=== PATIENT | female | born 1975 | race Caucasian/White ===

== ENCOUNTER 2016-10-20 06:34 | Emergency (ER) | payer BC, MEDICARE ==
[2016-10-20] MEDS ORDERED: HYDROmorphone 2 MG/ML Syringe IVPUSH ONE ×2 (07:08→08:38)
[2016-10-20] MEDS ORDERED: Sodium Chloride 0.9% 1,000 ML IV ONE (07:08)
[2016-10-20] MEDS ORDERED: Ondansetron 4 MG/2 ML SDV IVPUSH ONE (07:08)
[2016-10-20] MEDS ORDERED: Sodium Chloride 0.9% 10 ML Syringe FLUSH PRN (07:09)
[2016-10-20] MEDS ORDERED: Sodium Chloride 0.9% 2.5 ML Syringe FLUSH PRN (07:09)
[2016-10-20] MEDS ORDERED: diphenhydrAMINE 50 MG/ML SDV IVPUSH ONE (07:10)
--- NOTE | 2016-10-20 07:16 | EDM.PDOC ---
ED HPI GENERAL MEDICAL PROBLEM - General Chief Complaint: Gastrointestinal Problem Stated Complaint: ABDOMINAL PAIN- RENAL DIALYSIS PT Time Seen by Provider: 10/20/16 06:59 - History of Present Illness INITIAL COMMENTS - FREE TEXT/NARRATIVE: HISTORY AND PHYSICAL: History of present illness: The patient is a 40-year-old female with a history of migraines hypertension end -stage renal disease T2 glomerulosclerosis who gets dialysis Thursday and Thursday here at our hospital and presents with a three-day history of crampy abdominal pain which is generalized associated with watery diarrhea every 30 minutes and intractable vomiting. According to the patient she has had no new foods travels or ill exposures and this started on Thursday morning with just grumbling in her abdomen and diffuse crampy abdominal pain which was mild. Her first stool was mushy and not watery and it proceeded to watery stools. There is no black or bloody stools and her last colonoscopy was less than 2 years ago here. Patient denies any fevers with this and she has had no chest pain shortness of breath or upper, pain. Her pain is localized to the lower part of her abdomen she says is becoming more sharp. She tried [id number] antidiarrheals and they did not help. Simultaneously with the diarrhea she started having nausea and intermittent vomiting which has become intractable. She can't tolerate anything by mouth and she feels very dry. She says she is below her dry weight. She presented to dialysis they sent her up here for evaluation. Patient has a history of a cholecystectomy a gastric bypass and a hysterectomy without ovariectomy and has no IBS history. Patient does make 700 cc of urine per day and has a left upper extremity fistula. Review of systems: As per history of present illness and below otherwise all systems reviewed and negative. Past medical history: As per history of present illness and as reviewed below otherwise noncontributory. Surgical history: As per history of present illness and as reviewed below otherwise noncontributory. Social history: No reported history of drug or alcohol abuse. Family history: As per history of present illness and as reviewed below otherwise noncontributory. Physical exam: General: Well-developed well-nourished female who is nontoxic and looks somewhat uncomfortable in the room with speaking clearly and easily and can move easily without distress. Vital signs have been noted by me HEENT: Atraumatic, normocephalic, negative for conjunctival pallor or scleral icterus, mucous membranes tacky, throat clear, neck supple, nontender, trachea midline. Lungs: Clear to auscultation, breath sounds equal bilaterally, chest nontender. Heart: S1S2, regular, negative for clicks, rubs, or JVD. Abdomen: Soft, nondistended, mildly hyperactive bowel sounds. There is diffuse lower abdominal tenderness with more tenderness on the right than on the left but there is no rebound or guarding. The patient has a well-healed midabdominal scar without hernia appreciated. Negative for masses or hepatosplenomegaly. Negative for costovertebral tenderness. Pelvis: Stable nontender. Genitourinary: Deferred. Rectal: Deferred. Extremities: Atraumatic, negative for cords or calf pain. Neurovascular unremarkable. There is a fistula noted on the left forearm distally near the wrist with a positive thrill Neuro: Awake, alert, oriented. Cranial nerves II through XII unremarkable. Cerebellum unremarkable. Motor and sensory unremarkable throughout. Exam nonfocal. Diagnostics: CBC CMP amylase lipase lactic acid CT scan of the abdomen and pelvis UA we will send stool for studies of the patient produces Therapeutics: IV fluids Zofran Dilaudid Benadryl The patient states she does have an allergy to Dilaudid, she breaks or rash, but she states when she is given the drug with Benadryl she does not have a reaction. 0912: I discussed all testing results with the patient and her family at bedside. I have also discussed all testing results and the patient's case with her provider in the clinic, Dr. Mcdowell. I've offered the patient observation admission for her discomfort but in light of her need for dialysis that would require a transfer to [facility] in [place]. I have discussed this with the patient and she would deferred that option at this time. Have discussed close followup with her provider in the clinic tomorrow and have scheduled her to have an appointment with Dr. Mcdowell tomorrow at 2:15 PM. She would like to try to go home and I will give her Zofran Bentyl and some pain medication for evening to help her get some sleep. I told her that I truly do need a stool sample here in the ED to test her for bacterial diarrhea which is something that I can treat and she is continuing to try to give me a stool sample. I have discussed with hemodialysis unit in the hospital during her dialysis once we discharge her and they have agreed to fit her into the schedule. 0945: Patient still is not able to produce a stool sample so I will give her the tools and a prescription to collect the stool and bring it to outpatient lab and have check those results tomorrow on her appointment. The patient overall looks much improved and is sitting up Cuban style in the bed with occasional twinges of discomfort but overall much improved. She has had no vomiting in the ED. We'll contact dialysis to get her an appointment to do her dialysis today. Impression: Abdominal pain/vomiting/diarrhea history of end-stage renal disease on dialysis Definitive disposition and diagnosis as appropriate pending reevaluation and review of above. abdomen Pain Score (Numeric/FACES): 5 - Related Data Allergies Allergy/AdvReac Type Severity Reaction Status Date / Time hydromorphone HCl Allergy Itching Verified 10/20/16 06:47 [From Dilaudid] Home Meds: Home Meds Levocetirizine Dihydrochloride 5 mg PO BEDTIME 10/20/16 [History] NIFEdipine [Nifedipine ER] 30 mg PO BID 10/20/16 [History] Nitroglycerin [Nitrostat] 0.4 mg SL ASDIRECTED PRN 10/20/16 [History] Nortriptyline HCl [Pamelor] 50 mg PO BEDTIME 10/20/16 [History] Primidone [Mysoline] 50 mg PO BEDTIME 10/20/16 [History] SUMAtriptan [Imitrex] 6 mg SQ ASDIRECTED PRN 10/20/16 [History] Sevelamer HCl [Renagel] 800 mg PO QID 10/20/16 [History] Sod Ferric Gluc Complex/Suc [Ferrlecit 62.5 mg/5 ml Vial] 62.5 mg IV ASDIRECTED 10/20/16 [History] Valproic Acid [Depakene] 500 mg PO BID 10/20/16 [History] Zolpidem Tartrate [Ambien Cr] 12.5 mg PO BEDTIME 10/20/16 [History] hydrOXYzine HCl [Atarax] 25 mg PO ASDIRECTED PRN 10/20/16 [History] Past Medical History Other HEENT History: wears glasses/contacts Cardiovascular History: Reports: Hypertension Respiratory History: Reports: None Gastrointestinal History: Reports: None Genitourinary History: Reports: Other (see below) Other Genitourinary History: Focal Segmental Glomerulosclerosis, Stage 5, states is not on dialysis- has left wrist A-V fistula, candidate for renal transplant SURGICAL SERVICES ASST History: Reports: Endometrial ablation, Other OB/BYN History: Breast Augmentation Musculoskeletal History: Reports: None Neurological History: Reports: Migraines Other Neuro History: restless leg syndrome Psychiatric History: Reports: Anxiety, Depression Endocrine/Metabolic History: Reports: Obesity/BMI 30+ Hematologic History: Reports: Blood transfusion(s) Immunologic History: Reports: None Oncologic (Cancer) History: Reports: None Dermatologic History: Reports: Other (see below) Other Dermatologic History: unexplained bruising - Past Surgical History HEENT Surgical History: Reports: None Other Cardiovascular Surgeries/Procedures: AV graft Respiratory Surgical History: Reports: None Other GI Surgeries/Procedures: abdominal plasty Female Surgical History: Reports: Hysterectomy, Tubal ligation Endocrine Surgical History: Reports: None Musculoskeletal Surgical History: Reports: Ganglion cyst Oncologic Surgical History: Reports: None Social & Family History - Family History Family Medical History: Noncontributory Cardiac: Reports: CAD Oncologic: Reports: Colon, Liver, Lung, Pancreatic, Other (see below) Other Oncologic Family History: throat - Tobacco Use Smoking Status *Q: Never Smoker Second Hand Smoke Exposure: No - Caffeine Use Caffeine Use: Reports: Coffee Caffeine Use Comment: occasional - Alcohol Use Days Per Week of Alcohol Use: 1 Number of Drinks Per Day: 1 Total Drinks Per Week: 1 - Recreational Drug Use Recreational Drug Use: No Drug Use in Last 12 Months: No ED ROS GENERAL - Review of Systems Review Of Systems: ROS reveals no pertinent complaints other than HPI. ED EXAM, GENERAL - Physical Exam Exam: See Below (See dictation) Course - Vital Signs Last Recorded V/S: Last Vital Signs Temp 36.3 C 10/20/16 06:48 Pulse 90 10/20/16 08:30 Resp 16 10/20/16 08:30 BP 140/79 10/20/16 08:30 Pulse Ox 98 10/20/16 08:30 - Orders/Labs/Meds Orders: Active Orders 24 hr Category Date Time Status Communication Order [RC] STAT Care 10/20/16 07:09 Active Sodium Chloride 0.9% [Saline Flush] Med 10/20/16 07:09 Active 10 ml FLUSH ASDIRECTED PRN Sodium Chloride 0.9% [Saline Flush] Med 10/20/16 07:09 Active 2.5 ml FLUSH ASDIRECTED PRN Saline Lock Insert [OM.PC] Stat Oth 10/20/16 07:07 Ordered Medication Orders Sodium Chloride (Saline Flush) 10 ml FLUSH ASDIRECTED PRN PRN Reason: Keep Vein Open Sodium Chloride (Saline Flush) 2.5 ml FLUSH ASDIRECTED PRN PRN Reason: Keep Vein Open Labs: Laboratory Tests 10/20/16 10/20/16 10/20/16 Range/Units 07:24 07:24 07:24 WBC 7.47 (4.0-11.0) K/uL RBC 5.15 (4.30-5.90) M/uL Hgb 18.4 H (12.0-16.0) g/dL Hct 48.9 H (36.0-46.0) % MCV 95.0 (80.0-98.0) fL MCH 35.7 H (27.0-32.0) pg MCHC 37.6 H (31.0-37.0) g/dL RDW Std Deviation 45.6 (28.0-62.0) fl RDW Coeff of Berny 13 (11.0-15.0) % Plt Count 253 (150-400) K/uL MPV 9.20 (7.40-12.00) fL Neut % (Auto) 54.3 (48.0-80.0) % Lymph % (Auto) 27.6 (16.0-40.0) % Thurston % (Auto) 13.3 (0.0-15.0) % Eos % (Auto) 4.4 (0.0-7.0) % Baso % (Auto) 0.4 (0.0-1.5) % Neut # (Auto) 4.1 (1.4-5.7) K/uL Lymph # (Auto) 2.1 (0.6-2.4) K/uL Thurston # (Auto) 1.0 H (0.0-0.8) K/uL Eos # (Auto) 0.3 (0.0-0.7) K/uL Baso # (Auto) 0.0 (0.0-0.1) K/uL Nucleated RBC % 0.0 /100WBC Nucleated RBCs # 0 K/uL Lactate 1.1 (0.20-2.00) mmol/L Sodium 123 L (136-146) mmol/L Potassium 3.0 L (3.5-5.1) mmol/L Chloride 89 L (98-110) mmol/L Carbon Dioxide 14 L (21-31) mmol/L BUN 76 H (6.0-23.0) mg/dL Creatinine 9.6 H (0.6-1.5) mg/dL Est Cr Clr Drug Dosing 6.04 mL/min Estimated GFR (MDRD) 4.5 ml/min Glucose 113 H (60-110) mg/dL Calcium 10.0 (8.8-10.8) mg/dL Total Bilirubin 0.6 (0.1-1.5) mg/dL AST 11 (5-40) IU/L ALT 29 (8-54) IU/L Alkaline Phosphatase 149 (40-150) Total Protein 8.3 H (6.0-8.0) g/dL Albumin 4.3 (3.5-5.0) g/dL Globulin 4.0 H (2.0-3.5) g/dL Albumin/Globulin Ratio 1.1 L (1.3-2.8) Amylase 67 (10-90) U/L Lipase 17 (7-80) U/L Urine Color Urine Appearance Urine pH (5.0-8.0) Ur Specific [place] (1.001-1.035) Urine Protein (NEGATIVE) mg/dL Urine Glucose (UA) (NEGATIVE) mg/dL Urine Ketones (NEGATIVE) mg/dL Urine Occult Blood (NEGATIVE) Urine Nitrite (NEGATIVE) Urine Bilirubin (NEGATIVE) Urine Urobilinogen (<2.0) EU/dL Ur Leukocyte Esterase (NEGATIVE) Urine RBC (0-2/HPF) Urine WBC (0-5/HPF) Ur Epithelial Cells (NONE-FEW) Amorphous Sediment (NEGATIVE) Urine Bacteria (NEGATIVE) 10/20/16 Range/Units 08:43 WBC (4.0-11.0) K/uL RBC (4.30-5.90) M/uL Hgb (12.0-16.0) g/dL Hct (36.0-46.0) % MCV (80.0-98.0) fL MCH (27.0-32.0) pg MCHC (31.0-37.0) g/dL RDW Std Deviation (28.0-62.0) fl RDW Coeff of Berny (11.0-15.0) % Plt Count (150-400) K/uL MPV (7.40-12.00) fL Neut % (Auto) (48.0-80.0) % Lymph % (Auto) (16.0-40.0) % Thurston % (Auto) (0.0-15.0) % Eos % (Auto) (0.0-7.0) % Baso % (Auto) (0.0-1.5) % Neut # (Auto) (1.4-5.7) K/uL Lymph # (Auto) (0.6-2.4) K/uL Thurston # (Auto) (0.0-0.8) K/uL Eos # (Auto) (0.0-0.7) K/uL Baso # (Auto) (0.0-0.1) K/uL Nucleated RBC % /100WBC Nucleated RBCs # K/uL Lactate (0.20-2.00) mmol/L Sodium (136-146) mmol/L Potassium (3.5-5.1) mmol/L Chloride (98-110) mmol/L Carbon Dioxide (21-31) mmol/L BUN (6.0-23.0) mg/dL Creatinine (0.6-1.5) mg/dL Est Cr Clr Drug Dosing mL/min Estimated GFR (MDRD) ml/min Glucose (60-110) mg/dL Calcium (8.8-10.8) mg/dL Total Bilirubin (0.1-1.5) mg/dL AST (5-40) IU/L ALT (8-54) IU/L Alkaline Phosphatase (40-150) Total Protein (6.0-8.0) g/dL Albumin (3.5-5.0) g/dL Globulin (2.0-3.5) g/dL Albumin/Globulin Ratio (1.3-2.8) Amylase (10-90) U/L Lipase (7-80) U/L Urine Color YELLOW Urine Appearance HAZY Urine pH 5.5 (5.0-8.0) Ur Specific [place] 1.015 (1.001-1.035) Urine Protein 30 (NEGATIVE) mg/dL Urine Glucose (UA) NEGATIVE (NEGATIVE) mg/dL Urine Ketones NEGATIVE (NEGATIVE) mg/dL Urine Occult Blood TRACE-INTACT (NEGATIVE) Urine Nitrite NEGATIVE (NEGATIVE) Urine Bilirubin NEGATIVE (NEGATIVE) Urine Urobilinogen 0.2 (<2.0) EU/dL Ur Leukocyte Esterase TRACE (NEGATIVE) Urine RBC 0-2 (0-2/HPF) Urine WBC 1-3 (0-5/HPF) Ur Epithelial Cells MODERATE (NONE-FEW) Amorphous Sediment MODERATE (NEGATIVE) Urine Bacteria FEW (NEGATIVE) Meds: Medications Generic Name Dose Route Start Last Admin Trade Name Freq PRN Reason Stop Dose Admin Sodium Chloride 10 ml 10/20/16 07:09 Saline Flush FLUSH ASDIRECTED PRN Keep Vein Open Sodium Chloride 2.5 ml 10/20/16 07:09 Saline Flush FLUSH ASDIRECTED PRN Keep Vein Open Discontinued Medications Generic Name Dose Route Start Last Admin Trade Name Freq PRN Reason Stop Dose Admin Dicyclomine HCl 20 mg 10/20/16 09:08 10/20/16 09:12 Bentyl PO 10/20/16 09:09 20 mg ONETIME ONE Administration Diphenhydramine HCl 50 mg 10/20/16 07:10 10/20/16 07:26 Benadryl IVPUSH 10/20/16 07:11 50 mg ONETIME ONE Administration Hydromorphone HCl 1 mg 10/20/16 07:08 10/20/16 07:26 Dilaudid IVPUSH 10/20/16 07:09 1 mg ONETIME ONE Administration Hydromorphone HCl 0.5 mg 10/20/16 08:38 10/20/16 08:50 Dilaudid IVPUSH 10/20/16 08:39 0.5 mg ONETIME ONE Administration Sodium Chloride 1,000 mls @ 999 mls/hr 10/20/16 07:08 10/20/16 07:26 Normal Saline IV 10/20/16 08:08 999 mls/hr STAT ONE Administration Iopamidol 75 ml 10/20/16 08:29 10/20/16 08:32 Isovue-300 (61%) IVPUSH 10/20/16 08:30 75 ml ONETIME STA Administration Ondansetron HCl 4 mg 10/20/16 07:08 10/20/16 07:26 Zofran IVPUSH 10/20/16 07:09 4 mg ONETIME ONE Administration Departure - Departure Time of Disposition: 09:46 Disposition: Home, Self-Care 01 Condition: fair Clinical Impression: Diarrhea, Abdominal pain Referrals: Vj Mcdowell DO [Primary Care Provider] - Forms: ED Department Discharge Additional Instructions: The following information is given to patients seen in the emergency department who are being discharged to home. This information is to outline your options for follow-up care. We provide all patients seen in our emergency department with a follow-up referral. The need for follow-up, as well as the timing and circumstances, are variable depending upon the specifics of your emergency department visit. If you don't have a primary care physician on staff, we will provide you with a referral. We always advise you to contact your personal physician following an emergency department visit to inform them of the circumstance of the visit and for follow-up with them and/or the need for any referrals to a consulting specialist. The emergency department will also refer you to a specialist when appropriate. This referral assures that you have the opportunity for followup care with a specialist. All of these measure are taken in an effort to provide you with optimal care, which includes your followup. Under all circumstances we always encourage you to contact your private physician who remains a resource for coordinating your care. When calling for followup care, please make the office aware that this follow-up is from your recent emergency room visit. If for any reason you are refused follow-up, please contact the [facility] emergency department at and ask to speak to the emergency department charge nurse. [facility] Primary care- Internal Medicine and Family [address] [id number] Please use all medications as prescribed. Please keep your appointment tomorrow with Dr. Mcdowell in the clinic at 2:15 PM and return to ER as needed and as discussed. Please bring sample of your stool for testing as we discussed to her outpatient lab once you're able to produce. - My Orders Last 24 Hours: My Active Orders 10/20/16 07:07 Saline Lock Insert [OM.PC] Stat 10/20/16 07:09 Communication Order [RC] STAT Sodium Chloride 0.9% [Saline Flush] 10 ml FLUSH ASDIRECTED PRN Sodium Chloride 0.9% [Saline Flush] 2.5 ml FLUSH ASDIRECTED PRN - Assessment/Plan Last 24 Hours: My Active Orders 10/20/16 07:07 Saline Lock Insert [OM.PC] Stat 10/20/16 07:09 Communication Order [RC] STAT Sodium Chloride 0.9% [Saline Flush] 10 ml FLUSH ASDIRECTED PRN Sodium Chloride 0.9% [Saline Flush] 2.5 ml FLUSH ASDIRECTED PRN
[2016-10-20] MEDS ORDERED: Iopamidol 612 MG/ML 50 ML SDV IVPUSH STA (08:29)
--- NOTE | 2016-10-20 08:57 | CT ---
CT of the abdomen and pelvis with contrast. HISTORY: Pain TECHNIQUE: Axial CT images were obtained of the abdomen and pelvis following administration of 75 mL of Isovue-370 in the right antecubital fossa without complication. Coronal and sagittal reconstruct ions obtained. FINDINGS: The lung bases are clear, no pleural effusion. The liver, spleen, and adrenal glands appear normal. Cholecystectomy clips are noted. The common velia e duct is mildly prominent at 11 mm. The pancreas appears normal. No bulky retroperitoneal lymphaden opathy or abdominal ascites. Postsurgical changes are noted secondary to gastric bypass. The kidneys appear mildly atrophic however function symmetrically without evidence of obstructive ur opathy. The large and small bowel are normal in caliber without evidence of obstruction. The appendix appear s normal. No free pelvic fluid or pelvic lymphadenopathy. The urinary bladder appears normal. Hyster ectomy. No suspicious osseous abnormalities identified. IMPRESSION: 1. No acute findings demonstrated within the abdomen or pelvis. 2. Postsurgical changes secondary to gastric bypass. 3. Cholecystectomy with mild prominence of the common bile duct.
[2016-10-20] MEDS ORDERED: Dicyclomine 10 MG Cap PO ONE (09:08)
[2016-10-20 10:06] VITALS: BP 142/98
== END 2016-10-20 10:03 | disposition home or self-care (01) ==
LOC: MW.ED 06:34
DX: R19.7 Diarrhea, unspecified (principal); R10.84 Generalized abdominal pain; Z88.5 Allergy status to narcotic agent; Z79.899 Other long term (current) drug therapy
CPT/HCPCS: 36415; 74177; 80053; 81001; 82150; 83605; 83690; 85025; 96361; 96374; 96375; 99284; A9270; J1170; J1200; J2405; J7040; Q9967

== ENCOUNTER 2017-04-14 14:15 | Emergency (ER) | payer BC, MEDICARE ==
[2017-04-14] MEDS ORDERED: Famotidine 20 MG/2 ML SDV IVPUSH ONE (14:27)
[2017-04-14] MEDS ORDERED: Alum Hydrox/Mag Hydrox/Simeth 15 ML, Metoclopramide 5 MG, Lidocaine 2% 5 ML PO ONE ×3 (14:27)
[2017-04-14] MEDS ORDERED: Nitroglycerin 2% Oint 1 GM UD Packet TOP ONE (14:27)
[2017-04-14] MEDS ORDERED: Aspirin 81 MG Tab.Chew PO ONE (14:27)
[2017-04-14] MEDS ORDERED: Sodium Chloride 0.9% 10 ML Syringe FLUSH PRN (14:27)
[2017-04-14] MEDS ORDERED: Sodium Chloride 0.9% 2.5 ML Syringe FLUSH PRN (14:27)
--- NOTE | 2017-04-14 14:31 | EDM.PDOC ---
ED HPI GENERAL MEDICAL PROBLEM - General Chief Complaint: Chest Pain Stated Complaint: CHEST PAIN Time Seen by Provider: 04/14/17 14:29 Source of Information: Reports: Patient History Limitations: Reports: No Limitations - History of Present Illness INITIAL COMMENTS - FREE TEXT/NARRATIVE: History of present illness: [41-year-old female presenting status post mid dialysis run. Patient indicates this is not the first time that she has had chest pain during a dialysis run and last time it was diagnosis and acute panic attack. Patient has had a recent extensive cardiac workup headed towards a renal transplant secondary to her kidney failure.] Review of systems: As per history of present illness and below otherwise all systems reviewed and negative. Past medical history: As per history of present illness and as reviewed below otherwise noncontributory. Surgical history: As per history of present illness and as reviewed below otherwise noncontributory. Social history: No reported history of drug or alcohol abuse. Family history: As per history of present illness and as reviewed below otherwise noncontributory. Physical exam: HEENT: Atraumatic, normocephalic, pupils reactive, negative for conjunctival pallor or scleral icterus, mucous membranes moist, throat clear, neck supple, nontender, trachea midline. Lungs: Clear to auscultation, breath sounds equal bilaterally, chest nontender. Heart: S1S2, regular, negative for clicks, rubs, or JVD. Abdomen: Soft, nondistended, nontender. Negative for masses or hepatosplenomegaly. Negative for costovertebral tenderness. Pelvis: Stable nontender. Genitourinary: Deferred. Rectal: Deferred. Extremities: Atraumatic, negative for cords or calf pain. Neurovascular unremarkable. Neuro: Awake, alert, oriented. Cranial nerves II through XII unremarkable. Cerebellum unremarkable. Motor and sensory unremarkable throughout. Exam nonfocal. Results discussed with patient and she acknowledged that she has been struggling with some component of anxiety and that she expected her cardiac workup to be negative due to recent cardiac studies performed for her transplant. Patient indicated she does not want to be admitted but will return should she have further symptoms. Diagnostics: [EKG, CBC, CMP, troponin, lipase, amylase, UA, chest x-ray] Therapeutics: [Saline lock, GI cocktail, Toradol, aspirin] Impression: [Anxiety] Plan: [Is charge to home follow-up with PCP] Definitive disposition and diagnosis as appropriate pending reevaluation and review of above. Left Chest Pain Score (Numeric/FACES): 7 - Related Data Allergies Allergy/AdvReac Type Severity Reaction Status Date / Time hydromorphone HCl Allergy Itching Verified 10/20/16 06:47 [From Dilaudid] Home Meds: Home Meds Acetaminophen 325 - 650 mg PO Q4H PRN 10/20/16 [History] Levocetirizine Dihydrochloride 5 mg PO BEDTIME 10/20/16 [History] NIFEdipine [Nifedipine ER] 30 mg PO BID 10/20/16 [History] Nitroglycerin [Nitrostat] 0.4 mg SL ASDIRECTED PRN 10/20/16 [History] Nortriptyline HCl [Pamelor] 50 mg PO BEDTIME 10/20/16 [History] Primidone [Mysoline] 50 mg PO BEDTIME 10/20/16 [History] SUMAtriptan [Imitrex] 6 mg SQ ASDIRECTED PRN 10/20/16 [History] Sevelamer HCl [Renagel] 800 mg PO QIDPCANDBED 10/20/16 [History] Valproic Acid [Depakene] 500 mg PO BID 10/20/16 [History] Zolpidem Tartrate [Ambien Cr] 12.5 mg PO BEDTIME 10/20/16 [History] hydrOXYzine HCl [Atarax] 25 mg PO DAILY PRN 10/20/16 [History] Past Medical History Other HEENT History: wears glasses/contacts Cardiovascular History: Reports: Hypertension Respiratory History: Reports: None Gastrointestinal History: Reports: None Genitourinary History: Reports: Other (See Below) Other Genitourinary History: Focal Segmental Glomerulosclerosis, Stage 5, states is not on dialysis- has left wrist A-V fistula, candidate for renal transplant [employer] 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, Other OB/BYN History: Breast Augmentation Musculoskeletal History: Reports: None Neurological History: Reports: Migraines Other Neuro History: restless leg syndrome Psychiatric History: Reports: Anxiety, Depression Endocrine/Metabolic History: Reports: Obesity/BMI 30+ Hematologic History: Reports: Blood Transfusion(s) Immunologic History: Reports: None Oncologic (Cancer) History: Reports: None Dermatologic History: Reports: Other (See Below) Other Dermatologic History: unexplained bruising - Past Surgical History GI Surgical History: Reports: Bariatric Procedure, Cholecystectomy, Other (See Below) Female Surgical History: Reports: Hysterectomy, Tubal Ligation Musculoskeletal Surgical History: Reports: Ganglion Cyst Social & Family History - Family History Family Medical History: Noncontributory Cardiac: Reports: CAD Oncologic: Reports: Colon, Liver, Lung, Pancreatic, Other (See Below) Other Oncologic Family History: throat - Tobacco Use Smoking Status *Q: Never Smoker Second Hand Smoke Exposure: No - Caffeine Use Caffeine Use: Reports: Coffee Caffeine Use Comment: occasional - Alcohol Use Days Per Week of Alcohol Use: 1 Number of Drinks Per Day: 1 Total Drinks Per Week: 1 - Recreational Drug Use Recreational Drug Use: No Drug Use in Last 12 Months: No ED ROS GENERAL - Review of Systems Review Of Systems: See Below (See history of present illness) ED EXAM, GENERAL - Physical Exam Exam: See Below (History of present illness) Course - Vital Signs Last Recorded V/S: Last Vital Signs Temp 36.8 C 04/14/17 15:15 Pulse 87 04/14/17 15:15 Resp 18 04/14/17 15:15 BP 132/98 H 04/14/17 15:15 Pulse Ox 97 04/14/17 15:15 - Orders/Labs/Meds Orders: Active Orders 24 hr Category Date Time Status Cardiac Monitoring [RC] . DIRECTED Care 04/14/17 14:27 Active EKG Documentation Completion [RC] STAT Care 04/14/17 14:27 Active Sodium Chloride 0.9% [Saline Flush] Med 04/14/17 14:27 Active 10 ml FLUSH ASDIRECTED PRN Sodium Chloride 0.9% [Saline Flush] Med 04/14/17 14:27 Active 2.5 ml FLUSH ASDIRECTED PRN Saline Lock Insert [OM.PC] Stat Oth 04/14/17 14:27 Ordered Medication Orders Sodium Chloride (Saline Flush) 10 ml FLUSH ASDIRECTED PRN PRN Reason: Keep Vein Open Last Admin: 04/14/17 14:36 Dose: 10 ml Sodium Chloride (Saline Flush) 2.5 ml FLUSH ASDIRECTED PRN PRN Reason: Keep Vein Open Last Admin: 04/14/17 14:36 Dose: 2.5 ml Labs: Laboratory Tests 10/31/17 10/31/17 10/31/17 Range/Units 14:31 14:31 14:40 WBC 4.64 (4.0-11.0) K/uL RBC 4.05 L (4.30-5.90) M/uL Hgb 13.9 (12.0-16.0) g/dL Hct 39.3 (36.0-46.0) % MCV 97.0 (80.0-98.0) fL MCH 34.3 H (27.0-32.0) pg MCHC 35.4 (31.0-37.0) g/dL RDW Std Deviation 49.6 (28.0-62.0) fl RDW Coeff of Berny 14 (11.0-15.0) % Plt Count 224 (150-400) K/uL MPV 8.90 (7.40-12.00) fL Neut % (Auto) 55.7 (48.0-80.0) % Lymph % (Auto) 35.3 (16.0-40.0) % [place] % (Auto) 8.4 (0.0-15.0) % Eos % (Auto) 0.0 (0.0-7.0) % Baso % (Auto) 0.6 (0.0-1.5) % Neut # (Auto) 2.6 (1.4-5.7) K/uL Lymph # (Auto) 1.6 (0.6-2.4) K/uL [place] # (Auto) 0.4 (0.0-0.8) K/uL Eos # (Auto) 0.0 (0.0-0.7) K/uL Baso # (Auto) 0.0 (0.0-0.1) K/uL Nucleated RBC % 0.0 /100WBC Nucleated RBCs # 0 K/uL Sodium 135 L (136-146) mmol/L Potassium 3.4 L (3.5-5.1) mmol/L Chloride 101 (98-110) mmol/L Carbon Dioxide 25 (21-31) mmol/L BUN 31 H (6.0-23.0) mg/dL Creatinine 2.8 H (0.6-1.5) mg/dL Est Cr Clr Drug Dosing 20.49 mL/min Estimated GFR (MDRD) 18.4 ml/min Glucose 128 H (60-110) mg/dL Calcium 8.4 L (8.8-10.8) mg/dL Total Bilirubin 0.4 (0.1-1.5) mg/dL AST 12 (5-40) IU/L ALT 11 (8-54) IU/L Alkaline Phosphatase 138 (40-150) Troponin I < 0.10 (0.0-0.29) NG/ML Total Protein 6.8 (6.0-8.0) g/dL Albumin 3.5 (3.5-5.0) g/dL Globulin 3.3 (2.0-3.5) g/dL Albumin/Globulin Ratio 1.1 L (1.3-2.8) Amylase 86 (10-90) U/L Lipase 56 (7-80) U/L Urine Color YELLOW Urine Appearance SLT CLOUDY Urine pH 6.0 (5.0-8.0) Ur Specific [place] 1.010 (1.001-1.035) Urine Protein 30 (NEGATIVE) mg/dL Urine Glucose (UA) NEGATIVE (NEGATIVE) mg/dL Urine Ketones NEGATIVE (NEGATIVE) mg/dL Urine Occult Blood TRACE-INTACT (NEGATIVE) Urine Nitrite NEGATIVE (NEGATIVE) Urine Bilirubin NEGATIVE (NEGATIVE) Urine Urobilinogen 0.2 (<2.0) EU/dL Ur Leukocyte Esterase SMALL (NEGATIVE) Urine RBC 0-1 (0-2/HPF) Urine WBC 1-3 (0-5/HPF) Ur Epithelial Cells OCCASIONAL (NONE-FEW) Amorphous Sediment LIGHT (NEGATIVE) Urine Bacteria FEW (NEGATIVE) Meds: Medications Generic Name Dose Route Start Last Admin Trade Name Freq PRN Reason Stop Dose Admin Sodium Chloride 10 ml 04/14/17 14:27 04/14/17 14:36 Saline Flush FLUSH 10 ml ASDIRECTED PRN Administration Keep Vein Open Sodium Chloride 2.5 ml 04/14/17 14:27 04/14/17 14:36 Saline Flush FLUSH 2.5 ml ASDIRECTED PRN Administration Keep Vein Open Discontinued Medications Generic Name Dose Route Start Last Admin Trade Name Freq PRN Reason Stop Dose Admin Aspirin 324 mg 04/14/17 14:27 04/14/17 14:35 Aspirin PO 04/14/17 14:28 324 mg ONETIME ONE Administration Al Hydroxide/Mg Hydroxide 15 0 ml 04/14/17 14:27 04/14/17 14:41 ml/ Metoclopramide HCl 5 mg/ PO 04/14/17 14:28 25 each Lidocaine HCl 5 ml ONETIME ONE Administration Famotidine 20 mg 04/14/17 14:27 04/14/17 14:36 Pepcid IVPUSH 04/14/17 14:28 20 mg ONETIME ONE Administration Lorazepam 2 mg 04/14/17 15:57 Ativan IVPUSH 04/14/17 15:58 ONETIME ONE Nitroglycerin 0.5 gm 04/14/17 14:27 04/14/17 14:40 Nitro-Bid 2% TOP 04/14/17 14:28 0.5 gm ONETIME ONE Administration Departure - Departure Time of Disposition: 16:03 Disposition: Home, Self-Care 01 Condition: Good Clinical Impression: Atypical chest pain, Anxiety - Discharge Information Referrals: PCP,Unknown [Primary Care Provider] - Forms: ED Department Discharge Additional Instructions: The following information is given to patients seen in the emergency department who are being discharged to home. This information is to outline your options for follow-up care. We provide all patients seen in our emergency department with a follow-up referral. The need for follow-up, as well as the timing and circumstances, are variable depending upon the specifics of your emergency department visit. If you don't have a primary care physician on staff, we will provide you with a referral. We always advise you to contact your personal physician following an emergency department visit to inform them of the circumstance of the visit and for follow-up with them and/or the need for any referrals to a consulting specialist. The emergency department will also refer you to a specialist when appropriate. This referral assures that you have the opportunity for follow-up care with a specialist. All of these measure are taken in an effort to provide you with optimal care, which includes your follow-up. Under all circumstances we always encourage you to contact your private physician who remains a resource for coordinating your care. When calling for follow-up care, please make the office aware that this follow-up is from your recent emergency room visit. If for any reason you are refused follow-up, please contact the [facility] Emergency Department at and asked to speak to the emergency department charge nurse. Take medication as directed Follow-up with PCP in 2-3 days Return to ED as needed as discussed - My Orders Last 24 Hours: My Active Orders 04/14/17 14:27 Cardiac Monitoring [RC] . DIRECTED EKG Documentation Completion [RC] STAT Sodium Chloride 0.9% [Saline Flush] 10 ml FLUSH ASDIRECTED PRN Sodium Chloride 0.9% [Saline Flush] 2.5 ml FLUSH ASDIRECTED PRN Saline Lock Insert [OM.PC] Stat - Assessment/Plan Last 24 Hours: My Active Orders 04/14/17 14:27 Cardiac Monitoring [RC] . DIRECTED EKG Documentation Completion [RC] STAT Sodium Chloride 0.9% [Saline Flush] 10 ml FLUSH ASDIRECTED PRN Sodium Chloride 0.9% [Saline Flush] 2.5 ml FLUSH ASDIRECTED PRN Saline Lock Insert [OM.PC] Stat
[2017-04-14 15:03] LABS: CHLORIDE,CL 101 mmol/L (98-110); SODIUM,NA 135 mmol/L (136-146)
--- NOTE | 2017-04-14 15:14 | CR ---
EXAMINATION: Two-view chest (PA and Lateral views). HISTORY: Chest pain. FINDINGS: The trachea is midline. The cardiomediastinal silhouette is within normal limits. No pulmonary infilt rates, effusions or pneumothorax. Osseous structures appear unremarkable. IMPRESSION: No acute cardiopulmonary process.
[2017-04-14] MEDS ORDERED: LORazepam 2 MG/ML SDV IVPUSH ONE (15:57)
[2017-04-14 18:11] VITALS: BP 155/109
== END 2017-04-14 15:51 | disposition home or self-care (01) ==
LOC: MW.ED 14:15
DX: R07.89 Other chest pain (principal); F41.9 Anxiety disorder, unspecified; I10 Essential (primary) hypertension; F32.9 Major depressive disorder, single episode, unspecified; Z79.899 Other long term (current) drug therapy; Z88.5 Allergy status to narcotic agent; Z99.2 Dependence on renal dialysis
CPT/HCPCS: 36415; 71020; 80053; 81001; 82150; 83690; 84484; 85025; 96374; 96375; 99285; A9270; J2060; 99284

== ENCOUNTER 2017-05-14 10:36 | Emergency (ER) | payer BC, MEDICARE ==
--- NOTE | 2017-05-14 11:19 | EDM.PDOC ---
ED HPI GENERAL MEDICAL PROBLEM - General Chief Complaint: ENT Problem Stated Complaint: EAR/NECK/SHOULDER PAIN Time Seen by Provider: 05/14/17 10:46 Source of Information: Reports: Patient History Limitations: Reports: No Limitations - History of Present Illness INITIAL COMMENTS - FREE TEXT/NARRATIVE: HISTORY AND PHYSICAL: 41-year-old female presenting with left-sided shoulder and neck pain History of Present Illness: []Reports no injuries pain has been present for several days Review of Systems: As per history of present illness and below otherwise all systems reviewed and negative. Past medical history: As per history of present illness and as reviewed below otherwise noncontributory. Surgical history: As per history of present illness and as reviewed below otherwise noncontributory. Social history: No reported history of drug or alcohol abuse. Family history: As per history of present illness and as reviewed below otherwise noncontributory. Physical exam: Alert and oriented female states 5 renal failure patient is on a transplant list.Skin is warm and dry HEENT: Atraumatic, normocehpalic, pupils reactive, negative for conjunctival pallor or scleral icterus, mucous membranes moist, throat clear, neck supple, nontender, trachea midline. Lungs: Clear to auscultation, breath sounds equal bilaterally, chest non tender. Heart: S1S2, regular, negative for clicks, rubs, or JVD. Abdomen: Soft, nondistended, nontender. Negative for masses or hepatossplenmegaly. Negative for costovertebral tenderness. Pelvis: Stable nontender. Genitourinary: Deferred. Rectal: Deferred Extremities: Atraumatic, negative for cords or calf pain. Exquisitely tender across the previous episode of her shoulder extending towards her neck recorded muscle is noted extending up into the back of her left ear Neurovascular unremarkable. Neuro: Awake, alert, oriented. Cranial nerves II through XII unremarkable. Cerebellum unremarkable. Motor and sensory unremarkable throughout. Exam nonfocal. Diagnostics: [] Therapeutics: [Norflex] Impression: [Muscle tension] Plan: [Discharged home Flexeril 10 mg 3 times a day when necessary muscle spasm Moist heat to this area Follow-up with your primary care provider] Definitive disposition and diagnosis as appropriate pending reevaluation and review of above. Onset: Gradual Duration: Day(s): Location: Reports: Neck Left Ear Pain Score (Numeric/FACES): 7 - Related Data Allergies Allergy/AdvReac Type Severity Reaction Status Date / Time hydromorphone HCl Allergy Itching Verified 05/14/17 10:43 [From Dilaudid] Home Meds: Home Meds Levocetirizine Dihydrochloride 5 mg PO BEDTIME 10/20/16 [History] NIFEdipine [Nifedipine ER] 30 mg PO BID 10/20/16 [History] Sevelamer HCl [Renagel] 800 mg PO QIDPCANDBED 10/20/16 [History] Zolpidem Tartrate [Ambien Cr] 12.5 mg PO BEDTIME 10/20/16 [History] Cyclobenzaprine [Flexeril] 10 mg PO TID #21 tablet 05/14/17 [Rx] LORazepam [Ativan] 0.5 tab PO ASDIRECTED 05/14/17 [History] Omeprazole 1 tab PO ASDIRECTED PRN 05/14/17 [History] Venlafaxine HCl [Venlafaxine HCl ER] 1 tab PO DAILY 05/14/17 [History] Past Medical History HEENT History: Reports: Other (See Below) Other HEENT History: wears glasses/contacts Cardiovascular History: Reports: Hypertension Respiratory History: Reports: None Gastrointestinal History: Reports: None Genitourinary History: Reports: Other (See Below) Other Genitourinary History: Focal Segmental Glomerulosclerosis, Stage 5, states is not on dialysis- has left wrist A-V fistula, 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, Other OB/BYN History: Breast Augmentation Musculoskeletal History: Reports: None Neurological History: Reports: Migraines Other Neuro History: restless leg syndrome Psychiatric History: Reports: Anxiety, Depression Endocrine/Metabolic History: Reports: Obesity/BMI 30+ Hematologic History: Reports: Blood Transfusion(s) Immunologic History: Reports: None Oncologic (Cancer) History: Reports: None Dermatologic History: Reports: Other (See Below) Other Dermatologic History: unexplained bruising - Infectious Disease History Infectious Disease History: Reports: Chicken Pox - Past Surgical History GI Surgical History: Reports: Bariatric Procedure, Cholecystectomy, Other (See Below) Female Surgical History: Reports: Hysterectomy, Tubal Ligation Musculoskeletal Surgical History: Reports: Ganglion Cyst Social & Family History - Family History Family Medical History: Noncontributory Cardiac: Reports: CAD Oncologic: Reports: Colon, Liver, Lung, Pancreatic, Other (See Below) Other Oncologic Family History: throat - Tobacco Use Smoking Status *Q: Never Smoker Second Hand Smoke Exposure: No - Caffeine Use Caffeine Use: Reports: Coffee Caffeine Use Comment: occasional - Alcohol Use Days Per Week of Alcohol Use: 1 Number of Drinks Per Day: 1 Total Drinks Per Week: 1 - Recreational Drug Use Recreational Drug Use: No Drug Use in Last 12 Months: No ED ROS ENT - Review of Systems Review Of Systems: ROS reveals no pertinent complaints other than HPI. ED EXAM, ENT - Physical Exam Exam: See Below Course - Vital Signs Last Recorded V/S: Last Vital Signs Temp 35.9 C 05/14/17 10:43 Pulse 98 05/14/17 10:43 Resp 16 05/14/17 10:43 BP 134/101 H 05/14/17 11:02 Pulse Ox 98 05/14/17 10:43 - Orders/Labs/Meds Orders: Active Orders 24 hr Category Date Time Status Orphenadrine [Norflex] Med 05/14/17 11:15 Ordered 60 mg IM Q12H Medication Orders Orphenadrine Citrate (Norflex) 60 mg IM Q12H [facility] Meds: Medications Generic Name Dose Route Start Last Admin Trade Name Freq PRN Reason Stop Dose Admin Orphenadrine Citrate 60 mg 05/14/17 11:15 Norflex IM Q12H [facility] Departure - Departure Time of Disposition: 11:17 Disposition: Home, Self-Care 01 Condition: Good Clinical Impression: Muscle spasm - Discharge Information Prescriptions: Cyclobenzaprine [Flexeril] 10 mg PO TID #21 tablet Referrals: Vj Mcdowell DO [Primary Care Provider] - Forms: ED Department Discharge Additional Instructions: The following information is given to patients seen in the emergency department who are being discharged to home. This information is to outline your options for follow-up care. We provide all patients seen in our emergency department with a follow-up referral. The need for follow-up, as well as the timing and circumstances, are variable depending upon the specifics of your emergency department visit. If you don't have a primary care physician on staff, we will provide you with a referral. We always advise you to contact your personal physician following an emergency department visit to inform them of the circumstance of the visit and for follow-up with them and/or the need for any referrals to a consulting specialist. The emergency department will also refer you to a specialist when appropriate. This referral assures that you have the opportunity for followup care with a specialist. All of these measure are taken in an effort to provide you with optimal care, which includes your followup. Under all circumstances we always encourage you to contact your private physician who remains a resource for coordinating your care. When calling for followup care, please make the office aware that this follow-up is from your recent emergency room visit. If for any reason you are refused follow-up, please contact the [facility] emergency department at and asked to speak to the emergency department charge nurse. You were given Norflex IM while in the emergency department Prescription for Flexeril a muscle relaxant has been electronically sent to your pharmacy Follow-up with your primary care provider this week - My Orders Last 24 Hours: My Active Orders 05/14/17 11:15 Orphenadrine [Norflex] 60 mg IM Q12H - Assessment/Plan Last 24 Hours: My Active Orders 05/14/17 11:15 Orphenadrine [Norflex] 60 mg IM Q12H
[2017-05-14 11:59] VITALS: BP 142/105
== END 2017-05-14 11:56 | disposition home or self-care (01) ==
LOC: MW.ED 10:36
DX: M62.838 Other muscle spasm (principal); I10 Essential (primary) hypertension; F32.9 Major depressive disorder, single episode, unspecified; Z79.899 Other long term (current) drug therapy; Z88.5 Allergy status to narcotic agent
CPT/HCPCS: 96372; 99283; J2360

== ENCOUNTER 2017-06-21 19:44 | Emergency (ER) | payer BC, MEDICARE ==
[2017-06-21] MEDS ORDERED: Albuterol/Ipratropium 3.0-0.5 MG/3 ML Neb Soln NEB ONE (19:54)
[2017-06-21] MEDS ORDERED: Sodium Chloride 0.9% 10 ML Syringe FLUSH PRN (19:54)
[2017-06-21] MEDS ORDERED: Sodium Chloride 0.9% 2.5 ML Syringe FLUSH PRN (19:54)
--- NOTE | 2017-06-21 19:59 | EDM.PDOC ---
ED HPI GENERAL MEDICAL PROBLEM - General Chief Complaint: Respiratory Problem Stated Complaint: SOB Time Seen by Provider: 06/21/17 19:48 - History of Present Illness INITIAL COMMENTS - FREE TEXT/NARRATIVE: HISTORY AND PHYSICAL: History of present illness: The patient is a 41-year-old female with a history of hypertension and anxiety and chronic renal disease for which she is on hemodialysis for the last 2 years , her dialysis days are Thursday and Thursday, and she has a left forearm fistula who presents with a seven-day history of cough productive of phlegm congestion nasal drainage and congestion sore throat body aches but without nausea vomiting or diarrhea. Patient was told that she should never take anything [id number] so she hasn't but she says she did go into an urgent care last week out of town and had a negative influenza swab and was placed on a Z-Beka. She did not feel any improvement with that. Patient says she did get her influenza shot this year. Patient follows in our internal medicine clinic with Dr. Mcdowell and she says she had her normal dialysis run on Thursday without issue. She does not feel like she is retaining fluid as her hands feet and legs are not swollen and this is typical of her retention of fluid. Patient does make urine and has no urinary complaints. Patient has body aches and no fevers at home. Patient says she does not feel dehydrated and has been trying to keep up with her fluids and eating. Patient is just very frustrated and feels more short of breath over the last 1-2 days and feels like her symptoms are progressing. Review of systems: As per history of present illness and below otherwise all systems reviewed and negative. Past medical history: As per history of present illness and as reviewed below otherwise noncontributory. Surgical history: As per history of present illness and as reviewed below otherwise noncontributory. Social history: No reported history of drug or alcohol abuse. Family history: As per history of present illness and as reviewed below otherwise noncontributory. Physical exam: Gen.: Well-developed well-nourished female who is nontoxic and speaking clearly in the ED without breathlessness but she does have a slight nasal quality to her voice. Vital signs have been noted by me. HEENT: Atraumatic, normocephalic, pupils reactive, negative for conjunctival pallor or scleral icterus, mucous membranes moist, throat clear of exudates but there is posterior oropharyngeal erythema, there is no cervical adenopathy or nuchal rigidity, neck supple, nontender, trachea midline. There is no discrete sinus tenderness but the nasal turbinates are boggy bilaterally left greater than right. Lungs: Clear to auscultation but coarse breath sounds at bases right greater than left, there is no work of breathing stridor or wheezing, breath sounds equal bilaterally, chest nontender. Heart: S1S2, regular, negative for clicks, rubs, or JVD. Abdomen: Soft, nondistended, nontender. Negative for masses or hepatosplenomegaly. Negative for costovertebral tenderness. Pelvis: Stable nontender. Genitourinary: Deferred. Rectal: Deferred. Extremities: Atraumatic, negative for cords or calf pain. Neurovascular unremarkable. No pedal edema or leg asymmetry Neuro: Awake, alert, oriented. Cranial nerves II through XII unremarkable. Cerebellum unremarkable. Motor and sensory unremarkable throughout. Exam nonfocal. Diagnostics: EKG chest x-ray CBC CMP BNP rapid strep influenza swab lactic acid troponin Therapeutics: Duo neb IV O2 monitor Rocephin spacer and spacer teaching After the DuoNeb patient says she doesn't feel significantly different but she has a more harsh bronchitic cough on my evaluation. She and her at bedside are aware of testing results and as she is scheduled for dialysis tomorrow at 6:30 I will not transfer her or admit her with the results that I have obtained and she is comfortable with going home. I will give her a dose of Rocephin here and send her out on antibiotics and will give her Phenergan with codeine, albuterol inhaler and spacer be a Insty Meds. I advised her to follow- up with a provider in the clinic this week and she has a scheduled appointment in 2 days. Impression: Bronchitis/sinusitis Definitive disposition and diagnosis as appropriate pending reevaluation and review of above. Chest Pain Score (Numeric/FACES): 4 - Related Data Allergies Allergy/AdvReac Type Severity Reaction Status Date / Time hydromorphone HCl Allergy Itching Verified 05/14/17 10:43 [From Dilaudid] Home Meds: Home Meds Levocetirizine Dihydrochloride 5 mg PO BEDTIME 10/20/16 [History] NIFEdipine [Nifedipine ER] 30 mg PO BID 10/20/16 [History] Sevelamer HCl [Renagel] 800 mg PO QIDPCANDBED 10/20/16 [History] Zolpidem Tartrate [Ambien Cr] 12.5 mg PO BEDTIME 10/20/16 [History] LORazepam [Ativan] 0.5 tab PO ASDIRECTED 05/14/17 [History] Omeprazole 1 tab PO ASDIRECTED PRN 05/14/17 [History] Venlafaxine HCl [Venlafaxine HCl ER] 1 tab PO DAILY 05/14/17 [History] Cyclobenzaprine [Flexeril] 10 mg PO ASDIRECTED PRN 06/21/17 [History] cloNIDine HCl [Clonidine HCl ER] 0.1 mg PO DAILY 06/21/17 [History] Past Medical History HEENT History: Reports: Other (See Below) Other HEENT History: wears glasses/contacts Cardiovascular History: Reports: Hypertension Respiratory History: Reports: None Gastrointestinal History: Reports: None Genitourinary History: Reports: Other (See Below) Other Genitourinary History: Focal Segmental Glomerulosclerosis, Stage 5, states is not on dialysis- has left wrist A-V fistula, candidate for renal transplant [employer] History: Reports: Endometrial Ablation, Other OB/BYN History: Breast Augmentation Musculoskeletal History: Reports: None Neurological History: Reports: Migraines Other Neuro History: restless leg syndrome Psychiatric History: Reports: Anxiety, Depression Endocrine/Metabolic History: Reports: Obesity/BMI 30+ Hematologic History: Reports: Blood Transfusion(s) Immunologic History: Reports: None Oncologic (Cancer) History: Reports: None Dermatologic History: Reports: Other (See Below) Other Dermatologic History: unexplained bruising - Infectious Disease History Infectious Disease History: Reports: Chicken Pox - Past Surgical History GI Surgical History: Reports: Bariatric Procedure, Cholecystectomy, Other (See Below) Female Surgical History: Reports: Hysterectomy, Tubal Ligation Musculoskeletal Surgical History: Reports: Ganglion Cyst Social & Family History - Family History Family Medical History: Noncontributory Cardiac: Reports: CAD Oncologic: Reports: Colon, Liver, Lung, Pancreatic, Other (See Below) Other Oncologic Family History: throat - Tobacco Use Smoking Status *Q: Never Smoker Second Hand Smoke Exposure: No - Caffeine Use Caffeine Use: Reports: None Caffeine Use Comment: occasional - Alcohol Use Days Per Week of Alcohol Use: 1 Number of Drinks Per Day: 1 Total Drinks Per Week: 1 - Recreational Drug Use Recreational Drug Use: No Drug Use in Last 12 Months: No ED ROS GENERAL - Review of Systems Review Of Systems: ROS reveals no pertinent complaints other than HPI. ED EXAM, GENERAL - Physical Exam Exam: See Below (See dictation) Course - Vital Signs Last Recorded V/S: Last Vital Signs Temp 36.9 C 06/21/17 19:49 Pulse 101 H 06/21/17 21:04 Resp 19 06/21/17 21:04 BP 131/94 H 06/21/17 21:04 Pulse Ox 99 06/21/17 21:04 - Orders/Labs/Meds Orders: Active Orders 24 hr Category Date Time Status Cardiac Monitoring [RC] . DIRECTED Care 06/21/17 19:53 Active Communication Order [RC] STAT Care 06/21/17 19:54 Active EKG Documentation Completion [RC] STAT Care 06/21/17 19:53 Active Oxygen Therapy, ED [RC] ASDIRECTED Care 06/21/17 19:53 Active Pulse Oximetry [RC] ASDIRECTED Care 06/21/17 19:54 Active RT Aerosol Therapy [RC] ASDIRECTED Care 06/21/17 19:55 Active Chest 2V [CR] Stat Exams 06/21/17 19:54 Taken CULTURE STREP A CONFIRMATION [RM] Stat Lab 06/21/17 20:45 Results STREP SCRN A RAPID W CULT CONF [RM] Stat Lab 06/21/17 20:45 Results Sodium Chloride 0.9% [Saline Flush] Med 06/21/17 19:54 Active 10 ml FLUSH ASDIRECTED PRN Sodium Chloride 0.9% [Saline Flush] Med 06/21/17 19:54 Active 2.5 ml FLUSH ASDIRECTED PRN cefTRIAXone [Rocephin in Dextrose,Iso-Osm 1 GM/50 ML] 1 Med 06/21/17 21:39 Ordered gm Premix Bag 1 bag IV ONETIME Saline Lock Insert [OM.PC] Stat Oth 06/21/17 19:53 Ordered Medication Orders Ceftriaxone Sodium/Dextrose 1 (gm/ Premix) 50 mls @ 100 mls/hr IV ONETIME ONE Stop: 06/21/17 22:08 Sodium Chloride (Saline Flush) 10 ml FLUSH ASDIRECTED PRN PRN Reason: Keep Vein Open Sodium Chloride (Saline Flush) 2.5 ml FLUSH ASDIRECTED PRN PRN Reason: Keep Vein Open Labs: Laboratory Tests 06/21/17 06/21/17 06/21/17 Range/Units 20:14 20:14 20:14 WBC 6.00 (4.0-11.0) K/uL RBC 3.91 L (4.30-5.90) M/uL Hgb 13.6 (12.0-16.0) g/dL Hct 39.4 (36.0-46.0) % MCV 100.8 H (80.0-98.0) fL MCH 34.8 H (27.0-32.0) pg MCHC 34.5 (31.0-37.0) g/dL RDW Std Deviation 48.5 (28.0-62.0) fl RDW Coeff of Berny 13 (11.0-15.0) % Plt Count 255 (150-400) K/uL MPV 8.90 (7.40-12.00) fL Neut % (Auto) 51.9 (48.0-80.0) % Lymph % (Auto) 36.8 (16.0-40.0) % Greene % (Auto) 10.8 (0.0-15.0) % Eos % (Auto) 0.0 (0.0-7.0) % Baso % (Auto) 0.5 (0.0-1.5) % Neut # (Auto) 3.1 (1.4-5.7) K/uL Lymph # (Auto) 2.2 (0.6-2.4) K/uL Greene # (Auto) 0.7 (0.0-0.8) K/uL Eos # (Auto) 0.0 (0.0-0.7) K/uL Baso # (Auto) 0.0 (0.0-0.1) K/uL Nucleated RBC % 0.0 /100WBC Nucleated RBCs # 0 K/uL Lactate 2.3 H (0.20-2.00) mmol/L Sodium 138 (136-146) mmol/L Potassium 3.2 L (3.5-5.1) mmol/L Chloride 102 (98-110) mmol/L Carbon Dioxide 19 L (21-31) mmol/L BUN 40 H (6.0-23.0) mg/dL Creatinine 4.6 H (0.6-1.5) mg/dL Est Cr Clr Drug Dosing TNP Estimated GFR (MDRD) 10.4 ml/min Glucose 50 L (60-110) mg/dL Calcium 9.1 (8.8-10.8) mg/dL Total Bilirubin 0.2 (0.1-1.5) mg/dL AST 24 (5-40) IU/L ALT 89 H (8-54) IU/L Alkaline Phosphatase 211 H (40-150) Troponin I < 0.10 (0.0-0.29) NG/ML B-Natriuretic Peptide (<100) PG/ML Total Protein 6.5 (6.0-8.0) g/dL Albumin 3.5 (3.5-5.0) g/dL Globulin 3.0 (2.0-3.5) g/dL Albumin/Globulin Ratio 1.2 L (1.3-2.8) 06/21/17 Range/Units 20:14 WBC (4.0-11.0) K/uL RBC (4.30-5.90) M/uL Hgb (12.0-16.0) g/dL Hct (36.0-46.0) % MCV (80.0-98.0) fL MCH (27.0-32.0) pg MCHC (31.0-37.0) g/dL RDW Std Deviation (28.0-62.0) fl RDW Coeff of Berny (11.0-15.0) % Plt Count (150-400) K/uL MPV (7.40-12.00) fL Neut % (Auto) (48.0-80.0) % Lymph % (Auto) (16.0-40.0) % Greene % (Auto) (0.0-15.0) % Eos % (Auto) (0.0-7.0) % Baso % (Auto) (0.0-1.5) % Neut # (Auto) (1.4-5.7) K/uL Lymph # (Auto) (0.6-2.4) K/uL Greene # (Auto) (0.0-0.8) K/uL Eos # (Auto) (0.0-0.7) K/uL Baso # (Auto) (0.0-0.1) K/uL Nucleated RBC % /100WBC Nucleated RBCs # K/uL Lactate (0.20-2.00) mmol/L Sodium (136-146) mmol/L Potassium (3.5-5.1) mmol/L Chloride (98-110) mmol/L Carbon Dioxide (21-31) mmol/L BUN (6.0-23.0) mg/dL Creatinine (0.6-1.5) mg/dL Est Cr Clr Drug Dosing Estimated GFR (MDRD) ml/min Glucose (60-110) mg/dL Calcium (8.8-10.8) mg/dL Total Bilirubin (0.1-1.5) mg/dL AST (5-40) IU/L ALT (8-54) IU/L Alkaline Phosphatase (40-150) Troponin I (0.0-0.29) NG/ML B-Natriuretic Peptide 150 H (<100) PG/ML Total Protein (6.0-8.0) g/dL Albumin (3.5-5.0) g/dL Globulin (2.0-3.5) g/dL Albumin/Globulin Ratio (1.3-2.8) Meds: Medications Generic Name Dose Route Start Last Admin Trade Name Freq PRN Reason Stop Dose Admin Ceftriaxone Sodium/Dextrose 1 50 mls @ 100 mls/hr 06/21/17 21:39 gm/ Premix IV 06/21/17 22:08 ONETIME ONE Sodium Chloride 10 ml 06/21/17 19:54 Saline Flush FLUSH ASDIRECTED PRN Keep Vein Open Sodium Chloride 2.5 ml 06/21/17 19:54 Saline Flush FLUSH ASDIRECTED PRN Keep Vein Open Discontinued Medications Generic Name Dose Route Start Last Admin Trade Name Freq PRN Reason Stop Dose Admin Albuterol/Ipratropium 3 ml 06/21/17 19:54 06/21/17 20:07 Duoneb 3.0-0.5 Mg/3 Ml NEB 06/21/17 19:55 3 ml ONETIME ONE Administration Dextrose/Water 25 ml 06/21/17 21:00 06/21/17 21:10 Dextrose 50% In Water IVPUSH 06/21/17 21:01 25 ml ONETIME ONE Administration Departure - Departure Time of Disposition: 21:41 Disposition: Home, Self-Care 01 Condition: Good Clinical Impression: Bronchitis Sinusitis Qualifiers: Sinusitis location: unspecified location Chronicity: acute Recurrence: not specified as recurrent Qualified Code(s): J01.90 - Acute sinusitis, unspecified - Discharge Information Referrals: PCP,Unknown [Primary Care Provider] - Forms: ED Department Discharge Additional Instructions: The following information is given to patients seen in the emergency department who are being discharged to home. This information is to outline your options for follow-up care. We provide all patients seen in our emergency department with a follow-up referral. The need for follow-up, as well as the timing and circumstances, are variable depending upon the specifics of your emergency department visit. If you don't have a primary care physician on staff, we will provide you with a referral. We always advise you to contact your personal physician following an emergency department visit to inform them of the circumstance of the visit and for follow-up with them and/or the need for any referrals to a consulting specialist. The emergency department will also refer you to a specialist when appropriate. This referral assures that you have the opportunity for followup care with a specialist. All of these measure are taken in an effort to provide you with optimal care, which includes your followup. Under all circumstances we always encourage you to contact your private physician who remains a resource for coordinating your care. When calling for followup care, please make the office aware that this follow-up is from your recent emergency room visit. If for any reason you are refused follow-up, please contact the emergency department at and ask to speak to the emergency department charge nurse. [facility] Primary care- [place] [address] Please keep your appointment tomorrow morning for dialysis as well as your appointment with your provider in the clinic on Thursday. Push hydration and take all medications as prescribed. You have been given a prescription of antibiotics that you can start tomorrow. You have been given Insty Meds for the albuterol and the Phenergan with codeine. Use the albuterol with a spacer as needed for bronchitic coughing. Return to ER as needed and as discussed - My Orders Last 24 Hours: My Active Orders 06/21/17 19:53 Cardiac Monitoring [RC] . DIRECTED EKG Documentation Completion [RC] STAT Oxygen Therapy, ED [RC] ASDIRECTED Saline Lock Insert [OM.PC] Stat 06/21/17 19:54 Communication Order [RC] STAT Pulse Oximetry [RC] ASDIRECTED Chest 2V [CR] Stat Sodium Chloride 0.9% [Saline Flush] 10 ml FLUSH ASDIRECTED PRN Sodium Chloride 0.9% [Saline Flush] 2.5 ml FLUSH ASDIRECTED PRN 06/21/17 19:55 RT Aerosol Therapy [RC] ASDIRECTED 06/21/17 20:45 CULTURE STREP A CONFIRMATION [RM] Stat STREP SCRN A RAPID W CULT CONF [RM] Stat 06/21/17 21:39 cefTRIAXone [Rocephin in Dextrose,Iso-Osm 1 GM/50 ML] 1 gm Premix Bag 1 bag IV ONETIME - Assessment/Plan Last 24 Hours: My Active Orders 06/21/17 19:53 Cardiac Monitoring [RC] . DIRECTED EKG Documentation Completion [RC] STAT Oxygen Therapy, ED [RC] ASDIRECTED Saline Lock Insert [OM.PC] Stat 06/21/17 19:54 Communication Order [RC] STAT Pulse Oximetry [RC] ASDIRECTED Chest 2V [CR] Stat Sodium Chloride 0.9% [Saline Flush] 10 ml FLUSH ASDIRECTED PRN Sodium Chloride 0.9% [Saline Flush] 2.5 ml FLUSH ASDIRECTED PRN 06/21/17 19:55 RT Aerosol Therapy [RC] ASDIRECTED 06/21/17 20:45 CULTURE STREP A CONFIRMATION [RM] Stat STREP SCRN A RAPID W CULT CONF [RM] Stat 06/21/17 21:39 cefTRIAXone [Rocephin in Dextrose,Iso-Osm 1 GM/50 ML] 1 gm Premix Bag 1 bag IV ONETIME
[2017-06-21 20:45] LABS: CHLORIDE,CL 102 mmol/L (98-110); SODIUM,NA 138 mmol/L (136-146)
[2017-06-21] MEDS ORDERED: 50% Dextrose in Water 50 ML Syringe IVPUSH ONE (21:00)
[2017-06-21] MEDS ORDERED: cefTRIAXone 1 GM in Premix Bag 1 BAG IV ONE (21:39)
[2017-06-22 04:54] VITALS: BP 136/90
--- NOTE | 2017-06-22 14:59 | CR ---
EXAM DATE: 06/21/17 PATIENT'S AGE: 41 Patient: SARAI TOLBERT Facility: [place], [place] Site . Site : [id number] Study: XRay Chest [id number] 8:47:33 PM Ordering Physician: Renea Tillman Final Report: HISTORY: Cough, shortness of breath. TECHNIQUE: Two views of the chest. COMPARISON: 04/14/2017. FINDINGS: Cardiac size and pulmonary vasculature are within normal limits. There is no acute lung infiltrate or pulmonary edema. No pneumothorax or pleural effusion. No acute bony abnormality. IMPRESSION: No acute disease. Dictated by Zohaib Puga MD @ 06/21/2017 8:49:30 PM Dictated by: Zohaib Puga MD @ 06/21/2017 20:49:34 (Electronic Signature) Report Signed by Proxy. [facility] HEALTHSamantha
== END 2017-06-21 22:39 | disposition home or self-care (01) ==
LOC: MW.ED 19:44
DX: J40 Bronchitis, not specified as acute or chronic (principal); J01.90 Acute sinusitis, unspecified; Z88.5 Allergy status to narcotic agent; Z79.899 Other long term (current) drug therapy
CPT/HCPCS: 36415; 71046; 80053; 82962; 83605; 83880; 84484; 85025; 87081; 87804; 87880; 94640; 96365; 96375; 99285; J0696; J7060; 93005; 99284

== ENCOUNTER 2017-07-18 21:24 | Emergency (ER) | payer BC, MEDICARE ==
[2017-07-18] MEDS ORDERED: Diphtheria,Pertussis(Acell),Tetanus Vaccine 0.5 ML Syringe IM ONE (21:28)
--- NOTE | 2017-07-18 21:28 | EDM.PDOC ---
ED HPI GENERAL MEDICAL PROBLEM - General Stated Complaint: SUICIDAL Time Seen by Provider: 07/18/17 21:28 Source of Information: Reports: Patient - History of Present Illness INITIAL COMMENTS - FREE TEXT/NARRATIVE: HISTORY AND PHYSICAL: History of present illness: [Patient with chronic renal failure on dialysis presents with suicidal ideation and attempt with a knife she did cut her wrists small 1 cm laceration on her right wrist History of depression and anxiety on Effexor denies previous suicide attempt Denies previous psychiatric admission She has been drinking alcohol tonight ] Review of systems: As per history of present illness and below otherwise all systems reviewed and negative. Past medical history: As per history of present illness and as reviewed below otherwise noncontributory. Surgical history: As per history of present illness and as reviewed below otherwise noncontributory. Social history: No reported history of drug or alcohol abuse. Family history: As per history of present illness and as reviewed below otherwise noncontributory. Physical exam: HEENT: Atraumatic, normocephalic, pupils reactive, negative for conjunctival pallor or scleral icterus, mucous membranes moist, throat clear, neck supple, nontender, trachea midline. Lungs: Clear to auscultation, breath sounds equal bilaterally, chest nontender. Heart: S1S2, regular, negative for clicks, rubs, or JVD. Abdomen: Soft, nondistended, nontender. Negative for masses or hepatosplenomegaly. Negative for costovertebral tenderness. Pelvis: Stable nontender. Genitourinary: Deferred. Rectal: Deferred. Extremities: Atraumatic, negative for cords or calf pain. Neurovascular unremarkable. Neuro: Awake, alert, oriented. Cranial nerves II through XII unremarkable. Cerebellum unremarkable. Motor and sensory unremarkable throughout. Exam nonfocal. Diagnostics: []3C workup Therapeutics: Tetanus status is updated ] Impression: []Suicidal ideation with plan/attempt with knife Laceration less than 1 cm-butterfly Definitive disposition and diagnosis as appropriate pending reevaluation and review of above. - Related Data Allergies Allergy/AdvReac Type Severity Reaction Status Date / Time hydromorphone HCl Allergy Itching Verified 07/18/17 21:36 [From Dilaudid] Home Meds: Home Meds Levocetirizine Dihydrochloride 5 mg PO BEDTIME 10/20/16 [History] NIFEdipine [Nifedipine ER] 30 mg PO BID 10/20/16 [History] Sevelamer HCl [Renagel] 800 mg PO QIDPCANDBED 10/20/16 [History] Zolpidem Tartrate [Ambien Cr] 12.5 mg PO BEDTIME 10/20/16 [History] LORazepam [Ativan] 0.5 tab PO ASDIRECTED 05/14/17 [History] Omeprazole 1 tab PO ASDIRECTED PRN 05/14/17 [History] Venlafaxine HCl [Venlafaxine HCl ER] 75 mg PO DAILY 05/14/17 [History] cloNIDine HCl [Clonidine HCl ER] 0.1 mg PO DAILY 06/21/17 [History] Past Medical History HEENT History: Reports: Other (See Below) Other HEENT History: wears glasses/contacts Cardiovascular History: Reports: Hypertension Respiratory History: Reports: None Gastrointestinal History: Reports: None Genitourinary History: Reports: Other (See Below) Other Genitourinary History: Focal Segmental Glomerulosclerosis, Stage 5, states is not on dialysis- has left wrist A-V fistula, candidate for renal transplant [employer]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, Other OB/BYN History: Breast Augmentation Musculoskeletal History: Reports: None Neurological History: Reports: Migraines Other Neuro History: restless leg syndrome Psychiatric History: Reports: Anxiety, Depression Endocrine/Metabolic History: Reports: Obesity/BMI 30+ Hematologic History: Reports: Blood Transfusion(s) Immunologic History: Reports: None Oncologic (Cancer) History: Reports: None Dermatologic History: Reports: Other (See Below) Other Dermatologic History: unexplained bruising - Infectious Disease History Infectious Disease History: Reports: Chicken Pox - Past Surgical History GI Surgical History: Reports: Bariatric Procedure, Cholecystectomy, Other (See Below) Female Surgical History: Reports: Hysterectomy, Tubal Ligation Musculoskeletal Surgical History: Reports: Ganglion Cyst Social & Family History - Family History Family Medical History: Noncontributory Cardiac: Reports: CAD Oncologic: Reports: Colon, Liver, Lung, Pancreatic, Other (See Below) Other Oncologic Family History: throat - Tobacco Use Smoking Status *Q: Never Smoker Second Hand Smoke Exposure: No - Caffeine Use Caffeine Use: Reports: None Caffeine Use Comment: occasional - Alcohol Use Days Per Week of Alcohol Use: 1 Number of Drinks Per Day: 1 Total Drinks Per Week: 1 - Recreational Drug Use Recreational Drug Use: No Drug Use in Last 12 Months: No ED ROS GENERAL - Review of Systems Review Of Systems: ROS reveals no pertinent complaints other than HPI. ED EXAM, GENERAL - Physical Exam Exam: See Below Course - Vital Signs Last Recorded V/S: Last Vital Signs Temp 98.9 F 07/18/17 23:01 Pulse 94 07/18/17 23:01 Resp 18 07/18/17 23:01 BP 141/90 H 07/18/17 23:01 Pulse Ox 96 07/18/17 23:01 - Orders/Labs/Meds Orders: Active Orders 24 hr Category Date Time Status Communication Order [RC] STAT Care 07/18/17 21:36 Active EKG Documentation Completion [RC] STAT Care 07/18/17 21:26 Active Vaccines to be Administered [RC] PER UNIT ROUTINE Care 07/18/17 21:29 Active Chest 1V Frontal [CR] Stat Exams 07/18/17 21:26 Taken Labs: Laboratory Tests 07/18/17 07/18/17 07/18/17 Range/Units 21:41 21:41 21:41 WBC 5.34 (4.0-11.0) K/uL RBC 4.35 (4.30-5.90) M/uL Hgb 15.2 (12.0-16.0) g/dL Hct 42.1 (36.0-46.0) % MCV 96.8 (80.0-98.0) fL MCH 34.9 H (27.0-32.0) pg MCHC 36.1 (31.0-37.0) g/dL RDW Std Deviation 45.8 (28.0-62.0) fl RDW Coeff of Berny 13 (11.0-15.0) % Plt Count 249 (150-400) K/uL MPV 8.70 (7.40-12.00) fL Neut % (Auto) 53.7 (48.0-80.0) % Lymph % (Auto) 36.9 (16.0-40.0) % [place] % (Auto) 8.8 (0.0-15.0) % Eos % (Auto) 0.0 (0.0-7.0) % Baso % (Auto) 0.6 (0.0-1.5) % Neut # (Auto) 2.9 (1.4-5.7) K/uL Lymph # (Auto) 2.0 (0.6-2.4) K/uL [place] # (Auto) 0.5 (0.0-0.8) K/uL Eos # (Auto) 0.0 (0.0-0.7) K/uL Baso # (Auto) 0.0 (0.0-0.1) K/uL Nucleated RBC % 0.0 /100WBC Nucleated RBCs # 0 K/uL Sodium 130 L (136-146) mmol/L Potassium 3.4 L (3.5-5.1) mmol/L Chloride 94 L (98-110) mmol/L Carbon Dioxide 18 L (21-31) mmol/L BUN 20 (6.0-23.0) mg/dL Creatinine 4.3 H (0.6-1.5) mg/dL Est Cr Clr Drug Dosing TNP Estimated GFR (MDRD) 11.2 ml/min Glucose 97 (60-110) mg/dL Calcium 9.6 (8.8-10.8) mg/dL Total Bilirubin 0.4 (0.1-1.5) mg/dL AST 18 (5-40) IU/L ALT 13 (8-54) IU/L Alkaline Phosphatase 170 H (40-150) Troponin I < 0.10 (0.0-0.29) NG/ML Total Protein 7.3 (6.0-8.0) g/dL Albumin 4.0 (3.5-5.0) g/dL Globulin 3.3 (2.0-3.5) g/dL Albumin/Globulin Ratio 1.2 L (1.3-2.8) TSH 3rd Generation 2.06 (0.47-5.0) uIU/mL Urine Color Urine Appearance Urine pH (5.0-8.0) Ur Specific [place] (1.001-1.035) Urine Protein (NEGATIVE) mg/dL Urine Glucose (UA) (NEGATIVE) mg/dL Urine Ketones (NEGATIVE) mg/dL Urine Occult Blood (NEGATIVE) Urine Nitrite (NEGATIVE) Urine Bilirubin (NEGATIVE) Urine Urobilinogen (<2.0) EU/dL Ur Leukocyte Esterase (NEGATIVE) Urine RBC (0-2/HPF) Urine WBC (0-5/HPF) Ur Epithelial Cells (NONE-FEW) Urine Bacteria (NEGATIVE) Urine HCG, Qual (NEGATIVE) Salicylates < 5.0 (0-20) mg/dL Urine Opiates Screen (NEGATIVE) Ur Oxycodone Screen (NEGATIVE) Urine Methadone Screen (NEGATIVE) Acetaminophen < 3.0 ug/mL Ur Barbiturates Screen (NEGATIVE) Ur Phencyclidine Scrn (NEGATIVE) Ur Amphetamine Screen (NEGATIVE) U Methamphetamines Scrn (NEGATIVE) U Benzodiazepines Scrn (NEGATIVE) U Cocaine Metab Screen (NEGATIVE) U Marijuana (THC) Screen (NEGATIVE) Ethyl Alcohol 185.6 mg/dL 07/18/17 07/18/17 07/18/17 Range/Units 21:50 21:50 21:50 WBC (4.0-11.0) K/uL RBC (4.30-5.90) M/uL Hgb (12.0-16.0) g/dL Hct (36.0-46.0) % MCV (80.0-98.0) fL MCH (27.0-32.0) pg MCHC (31.0-37.0) g/dL RDW Std Deviation (28.0-62.0) fl RDW Coeff of Berny (11.0-15.0) % Plt Count (150-400) K/uL MPV (7.40-12.00) fL Neut % (Auto) (48.0-80.0) % Lymph % (Auto) (16.0-40.0) % [place] % (Auto) (0.0-15.0) % Eos % (Auto) (0.0-7.0) % Baso % (Auto) (0.0-1.5) % Neut # (Auto) (1.4-5.7) K/uL Lymph # (Auto) (0.6-2.4) K/uL [place] # (Auto) (0.0-0.8) K/uL Eos # (Auto) (0.0-0.7) K/uL Baso # (Auto) (0.0-0.1) K/uL Nucleated RBC % /100WBC Nucleated RBCs # K/uL Sodium (136-146) mmol/L Potassium (3.5-5.1) mmol/L Chloride (98-110) mmol/L Carbon Dioxide (21-31) mmol/L BUN (6.0-23.0) mg/dL Creatinine (0.6-1.5) mg/dL Est Cr Clr Drug Dosing Estimated GFR (MDRD) ml/min Glucose (60-110) mg/dL Calcium (8.8-10.8) mg/dL Total Bilirubin (0.1-1.5) mg/dL AST (5-40) IU/L ALT (8-54) IU/L Alkaline Phosphatase (40-150) Troponin I (0.0-0.29) NG/ML Total Protein (6.0-8.0) g/dL Albumin (3.5-5.0) g/dL Globulin (2.0-3.5) g/dL Albumin/Globulin Ratio (1.3-2.8) TSH 3rd Generation (0.47-5.0) uIU/mL Urine Color YELLOW Urine Appearance CLEAR Urine pH 6.0 (5.0-8.0) Ur Specific [place] 1.010 (1.001-1.035) Urine Protein 30 (NEGATIVE) mg/dL Urine Glucose (UA) NEGATIVE (NEGATIVE) mg/dL Urine Ketones NEGATIVE (NEGATIVE) mg/dL Urine Occult Blood TRACE-LYSED (NEGATIVE) Urine Nitrite NEGATIVE (NEGATIVE) Urine Bilirubin NEGATIVE (NEGATIVE) Urine Urobilinogen 0.2 (<2.0) EU/dL Ur Leukocyte Esterase SMALL (NEGATIVE) Urine RBC 0-2 (0-2/HPF) Urine WBC 1-3 (0-5/HPF) Ur Epithelial Cells OCCASIONAL (NONE-FEW) Urine Bacteria FEW (NEGATIVE) Urine HCG, Qual NEGATIVE (NEGATIVE) Salicylates (0-20) mg/dL Urine Opiates Screen NEGATIVE (NEGATIVE) Ur Oxycodone Screen NEGATIVE (NEGATIVE) Urine Methadone Screen NEGATIVE (NEGATIVE) Acetaminophen ug/mL Ur Barbiturates Screen NEGATIVE (NEGATIVE) Ur Phencyclidine Scrn NEGATIVE (NEGATIVE) Ur Amphetamine Screen NEGATIVE (NEGATIVE) U Methamphetamines Scrn NEGATIVE (NEGATIVE) U Benzodiazepines Scrn NEGATIVE (NEGATIVE) U Cocaine Metab Screen NEGATIVE (NEGATIVE) U Marijuana (THC) Screen NEGATIVE (NEGATIVE) Ethyl Alcohol mg/dL Meds: Medications Discontinued Medications Generic Name Dose Route Start Last Admin Trade Name Freq PRN Reason Stop Dose Admin Bacitracin 1 dose 07/18/17 21:37 07/18/17 22:20 Bacitracin Oint 1 Gm TOP 07/18/17 21:38 Not Given ONETIME ONE Diphtheria/Tetanus/Acell Pertussis 0.5 ml 07/18/17 21:28 07/18/17 21:53 Adacel IM 07/18/17 21:29 0.5 ml .ONCE ONE Administration Octyl Cyanoacrylate 1 applic 07/18/17 21:37 07/18/17 21:54 Dermabond Mini TOP 07/18/17 21:38 1 applic ONETIME ONE Administration Octyl Cyanoacrylate Confirm 07/18/17 21:39 07/18/17 22:20 Dermabond Mini Administered 07/18/17 21:40 Not Given Dose 1 applic .ROUTE .STK-MED ONE Departure - Departure Time of Disposition: 23:10 Disposition: DC/Tfer to Psych Hosp/Unit 65 Clinical Impression: Suicidal ideation - Discharge Information Referrals: PCP,Unknown [Primary Care Provider] - - My Orders Last 24 Hours: My Active Orders 07/18/17 21:26 EKG Documentation Completion [RC] STAT Chest 1V Frontal [CR] Stat 07/18/17 21:29 Vaccines to be Administered [RC] PER UNIT ROUTINE - Assessment/Plan Last 24 Hours: My Active Orders 07/18/17 21:26 EKG Documentation Completion [RC] STAT Chest 1V Frontal [CR] Stat 07/18/17 21:29 Vaccines to be Administered [RC] PER UNIT ROUTINE
--- NOTE | 2017-07-18 21:35 | EDM.PDOCBH ---
ED HPI GENERAL MEDICAL PROBLEM - General Stated Complaint: SUICIDAL Time Seen by Provider: 07/18/17 21:28 Source of Information: Reports: Patient History Limitations: Reports: No Limitations - History of Present Illness INITIAL COMMENTS - FREE TEXT/NARRATIVE: HISTORY AND PHYSICAL: History of present illness: Patient is a 41-year-old female who presents to the emergency room today with suicidal ideations. She states that she does have a history of anxiety and depression and does currently take medications for this. Tonight she was drinking alcohol with some family members at her home when she "became very uncomfortable" and proceeded to go into her 's bathroom where she found a knife and cut her right wrist. She states that she did this with the intention to harm herself. Patient does see [facility] for her anxiety and depression. Does have a service dog that is with her that she says helped her symptoms. She has had suicidal ideations in the past and been hospitalized, but has never "gone through with it". Michael has a history of kidney disease which she receives dialysis 3 times a week. Fistula noted to left arm. She denies any drug or medication abuse. Tetanus is up-to-date. Review of systems: As per history of present illness and below otherwise all systems reviewed and negative. Past medical history: As per history of present illness and as reviewed below otherwise noncontributory. Surgical history: As per history of present illness and as reviewed below otherwise noncontributory. Social history: No reported history of drug or alcohol abuse. Family history: As per history of present illness and as reviewed below otherwise noncontributory. Physical exam: General: Developed and well nourished 41-year-old female. Alert and oriented. Crying but appears nontoxic HEENT: Atraumatic, normocephalic, pupils reactive, negative for conjunctival pallor or scleral icterus, mucous membranes moist, throat clear, neck supple, nontender, trachea midline. Lungs: Clear to auscultation, breath sounds equal bilaterally, chest nontender. Heart: S1S2, regular rate and rhythm Abdomen: Soft, nondistended, nontender. Negative for masses or hepatosplenomegaly. Negative for costovertebral tenderness. Pelvis: Stable nontender. Genitourinary: Deferred. Rectal: Deferred. Skin: 1cm laceration to the anterior portion of the right wrist, superficial and not gaping. 2 superficial scratches noted laterally to the main one. Patient does have a fistula to the left arm. Extremities: Atraumatic, negative for cords or calf pain. Neurovascular unremarkable. Neuro: Awake, alert, oriented. Cranial nerves II through XII unremarkable. Cerebellum unremarkable. Motor and sensory unremarkable throughout. Exam nonfocal. This patient was seen by both myself and Dr. Pierre. Lab results are pending. On forced min remains at bedside. Wound care was done to the superficial laceration of the right wrist with Dermabond and nonstick dressing. Dr Pierre has assumed care of patient at 2200. Diagnostics: CBC, CMP, UA, urine drug screen, EKG, 1 view chest, alcohol level, acetaminophen , salicylate Therapeutics: Wound care, bacitracin, dermabond, nonstick dressing Impression: Suicidal ideation Plan: Transfer to mental health facility Definitive disposition and diagnosis as appropriate pending reevaluation and review of above. Onset: Today - Related Data Allergies Allergy/AdvReac Type Severity Reaction Status Date / Time hydromorphone HCl Allergy Itching Verified 07/18/17 21:36 [From Dilaudid] Home Meds: Home Meds Levocetirizine Dihydrochloride 5 mg PO BEDTIME 10/20/16 [History] NIFEdipine [Nifedipine ER] 30 mg PO BID 10/20/16 [History] Sevelamer HCl [Renagel] 800 mg PO QIDPCANDBED 10/20/16 [History] Zolpidem Tartrate [Ambien Cr] 12.5 mg PO BEDTIME 10/20/16 [History] LORazepam [Ativan] 0.5 tab PO ASDIRECTED 05/14/17 [History] Omeprazole 1 tab PO ASDIRECTED PRN 05/14/17 [History] Venlafaxine HCl [Venlafaxine HCl ER] 75 mg PO DAILY 05/14/17 [History] cloNIDine HCl [Clonidine HCl ER] 0.1 mg PO DAILY 06/21/17 [History] Past Medical History HEENT History: Reports: Other (See Below) Other HEENT History: wears glasses/contacts Cardiovascular History: Reports: Hypertension Respiratory History: Reports: None Gastrointestinal History: Reports: None Genitourinary History: Reports: Other (See Below) Other Genitourinary History: Focal Segmental Glomerulosclerosis, Stage 5, states is not on dialysis- has left wrist A-V fistula, candidate for renal transplant 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, Other OB/BYN History: Breast Augmentation Musculoskeletal History: Reports: None Neurological History: Reports: Migraines Other Neuro History: restless leg syndrome Psychiatric History: Reports: Anxiety, Depression Endocrine/Metabolic History: Reports: Obesity/BMI 30+ Hematologic History: Reports: Blood Transfusion(s) Immunologic History: Reports: None Oncologic (Cancer) History: Reports: None Dermatologic History: Reports: Other (See Below) Other Dermatologic History: unexplained bruising - Infectious Disease History Infectious Disease History: Reports: Chicken Pox - Past Surgical History GI Surgical History: Reports: Bariatric Procedure, Cholecystectomy, Other (See Below) Female Surgical History: Reports: Hysterectomy, Tubal Ligation Musculoskeletal Surgical History: Reports: Ganglion Cyst Social & Family History - Family History Family Medical History: Noncontributory Cardiac: Reports: CAD Oncologic: Reports: Colon, Liver, Lung, Pancreatic, Other (See Below) Other Oncologic Family History: throat - Tobacco Use Smoking Status *Q: Never Smoker Second Hand Smoke Exposure: No - Caffeine Use Caffeine Use: Reports: None Caffeine Use Comment: occasional - Alcohol Use Days Per Week of Alcohol Use: 1 Number of Drinks Per Day: 1 Total Drinks Per Week: 1 - Recreational Drug Use Recreational Drug Use: No Drug Use in Last 12 Months: No ED ROS GENERAL - Review of Systems Review Of Systems: ROS reveals no pertinent complaints other than HPI. ED EXAM, BEHAVIORAL HEALTH - Physical Exam Exam: See Below (See dictation) COURSE, BEHAVIORAL HEALTH COMP - Course Orders, Labs, Meds: Active Orders 24 hr Category Date Time Status Communication Order [RC] STAT Care 07/18/17 21:36 Active EKG Documentation Completion [RC] STAT Care 07/18/17 21:26 Active Vaccines to be Administered [RC] PER UNIT ROUTINE Care 07/18/17 21:29 Active Chest 1V Frontal [CR] Stat Exams 07/18/17 21:26 Ordered ACETAMINOPHEN [CHEM] Stat Lab 07/18/17 21:41 Received COMPREHENSIVE METABOLIC PN,CMP [CHEM] Stat Lab 07/18/17 21:41 Received DRUG SCREEN, URINE [URCHEM] Stat Lab 07/18/17 21:26 Ordered SALICYLATE [CHEM] Stat Lab 07/18/17 21:41 Received TROPONIN I [CHEM] Stat Lab 07/18/17 21:41 Received TSH [CHEM] Stat Lab 07/18/17 21:41 Received UA W/MICROSCOPIC [URIN] Stat Lab 07/18/17 21:26 Ordered Laboratory Tests 07/18/17 Range/Units 21:41 WBC 5.34 (4.0-11.0) K/uL RBC 4.35 (4.30-5.90) M/uL Hgb 15.2 (12.0-16.0) g/dL Hct 42.1 (36.0-46.0) % MCV 96.8 (80.0-98.0) fL MCH 34.9 H (27.0-32.0) pg MCHC 36.1 (31.0-37.0) g/dL RDW Std Deviation 45.8 (28.0-62.0) fl RDW Coeff of Berny 13 (11.0-15.0) % Plt Count 249 (150-400) K/uL MPV 8.70 (7.40-12.00) fL Neut % (Auto) 53.7 (48.0-80.0) % Lymph % (Auto) 36.9 (16.0-40.0) % [place] % (Auto) 8.8 (0.0-15.0) % Eos % (Auto) 0.0 (0.0-7.0) % Baso % (Auto) 0.6 (0.0-1.5) % Neut # (Auto) 2.9 (1.4-5.7) K/uL Lymph # (Auto) 2.0 (0.6-2.4) K/uL [place] # (Auto) 0.5 (0.0-0.8) K/uL Eos # (Auto) 0.0 (0.0-0.7) K/uL Baso # (Auto) 0.0 (0.0-0.1) K/uL Nucleated RBC % 0.0 /100WBC Nucleated RBCs # 0 K/uL Medications Discontinued Medications Generic Name Dose Route Start Last Admin Trade Name Freq PRN Reason Stop Dose Admin Bacitracin 1 dose 07/18/17 21:37 Bacitracin Oint 1 Gm TOP 07/18/17 21:38 ONETIME ONE Diphtheria/Tetanus/Acell Pertussis 0.5 ml 07/18/17 21:28 07/18/17 21:53 Adacel IM 07/18/17 21:29 0.5 ml .ONCE ONE Administration Octyl Cyanoacrylate 1 applic 07/18/17 21:37 07/18/17 21:54 Dermabond Mini TOP 07/18/17 21:38 1 applic ONETIME ONE Administration Octyl Cyanoacrylate Confirm 07/18/17 21:39 Dermabond Mini Administered 07/18/17 21:40 Dose 1 applic .ROUTE .STK-MED ONE Departure - Departure Time of Disposition: 21:57 Disposition: DC/Tfer to Psych Hosp/Unit 65 Clinical Impression: Suicidal ideation - Discharge Information - My Orders Last 24 Hours: My Active Orders 07/18/17 21:36 Communication Order [RC] STAT - Assessment/Plan Last 24 Hours: My Active Orders 07/18/17 21:36 Communication Order [RC] STAT
[2017-07-18] MEDS ORDERED: Bacitracin Oint 1 GM U/D Packet TOP ONE (21:37)
[2017-07-18] MEDS ORDERED: Octyl 2-Cyanoacrylate 1 APPLIC TUBE TOP ONE (21:37)
[2017-07-18] MEDS ORDERED: Octyl 2-Cyanoacrylate 1 APPLIC TUBE ONE (21:39)
[2017-07-18 22:13] LABS: ACETAMINOPHEN < 3.0 ug/mL; CHLORIDE,CL 94 mmol/L (98-110); SODIUM,NA 130 mmol/L (136-146)
[2017-07-18 23:02] VITALS: BP 141/90
[2017-07-19] MEDS ORDERED: LORazepam 2 MG/ML MDV ONE (00:25)
[2017-07-19] MEDS ORDERED: LORazepam 2 MG/ML MDV IM ONE (00:27)
--- NOTE | 2017-07-20 15:29 | CR ---
EXAM DATE: 07/18/17 PATIENT'S AGE: 41 Patient: SRAAI TOLBERT Facility: [place], [place] Site . Site : 1975 Study: XRay Chest [id number]/[id number] 10:28:50 PM Ordering Physician: Fran Torres Final Report: INDICATION: pain CHEST, ONE VIEW An AP radiograph of the chest was performed. Comparison: 06/21/2017. The lungs appear clear and no pleural effusions are identified. The cardiomediastinal silhouette and pulmonary vasculature appear normal, as do the visualized bones. IMPRESSION: No acute intrathoracic abnormality identified. LIANA GIVENS MD [employer] Dictated by: Cuco Givens MD @ 07/18/2017 23:05:38 (Electronic Signature) Report Signed by Proxy. [facility]
== END 2017-07-19 00:40 ==
LOC: MW.ED 21:24
DX: S61.511A Laceration without foreign body of right wrist, initial encounter (principal); I10 Essential (primary) hypertension; Z88.5 Allergy status to narcotic agent; Z79.899 Other long term (current) drug therapy; Z23 Encounter for immunization; X78.1XXA Intentional self-harm by knife, initial encounter
CPT/HCPCS: 12001; 36415; 71045; 80053; 80305; 81001; 81025; 84443; 84484; 85025; 90471; 90715; 93005; 96372; 99285; A9270; G0480; J2060; 99283

== ENCOUNTER 2018-08-04 16:11 | Emergency (ER) | payer BC, MEDICARE ==
[2018-08-04] MEDS ORDERED: Sodium Chloride 0.9% 10 ML Syringe FLUSH PRN (16:21)
[2018-08-04] MEDS ORDERED: Sodium Chloride 0.9% 2.5 ML Syringe FLUSH PRN (16:21)
--- NOTE | 2018-08-04 16:50 | EDM.PDOC ---
ED HPI GENERAL MEDICAL PROBLEM - General Chief Complaint: Genitourinary Problem Stated Complaint: INFECTION Time Seen by Provider: 08/04/18 16:31 Source of Information: Reports: Patient History Limitations: Reports: No Limitations - History of Present Illness INITIAL COMMENTS - FREE TEXT/NARRATIVE: HISTORY AND PHYSICAL: History of present illness: Patient is a 42-year-old female who presents to the ER today with concerns of right lower abdominal pain and fevers. Patient had a kidney transplant approximately 6 months ago. She states that she did have a kidney infection (of the transplanted kidney) about a month ago; and is currently still on oral cefdinir and Bactrim. Yesterday she started developing fevers again and the right lower abdominal pain. She states that this was the same symptoms she had prior with a kidney infection. She states her fevers at home have been around 101F. She has been alternating Tylenol and ibuprofen for fevers. She has been taking her medications as prescribed and has not missed any doses. She called her provider at [facility] and they recommended that she come to the emergency room for evaluation. She denies change in vision, headache, near-syncope or syncope. Denies any chills, chest pain, shortness of breath or cough. Denies any nausea, vomiting, diarrhea, constipation or dysuria. She has not had any blood in her stools. Review of systems: As per history of present illness and below otherwise all systems reviewed and negative. Past medical history: As per history of present illness and as reviewed below otherwise noncontributory. Surgical history: As per history of present illness and as reviewed below otherwise noncontributory. Social history: See social history for further information Family history: As per history of present illness and as reviewed below otherwise noncontributory. Physical exam: General: Patient is alert, oriented, and in no acute distress. She is nontoxic appearing sitting comfortably on exam table. HEENT: Atraumatic, normocephalic, pupils equal and reactive bilaterally, negative for conjunctival pallor or scleral icterus, mucous membranes moist, TMs normal bilaterally, throat clear, neck supple, nontender, trachea midline. No drooling or trismus noted. No meningeal signs. No hot potato voice noted. Lungs: Clear to auscultation, breath sounds equal bilaterally, chest nontender. Heart: S1S2, regular rate and rhythm without overt murmur Abdomen: Scarring appropriate for surgical history. Patient has moderate to severe tenderness upon palpation over her transplanted kidney in the right lower quadrant. Otherwise, soft, nondistended, nontender. Negative for masses or hepatosplenomegaly. Negative for costovertebral tenderness. Pelvis: Stable nontender. Genitourinary: Deferred. Rectal: Deferred. Skin: Intact, warm, dry. No lesions or rashes noted. Extremities: Atraumatic, moves all extremities per self without difficulty or deficits, negative for cords or calf pain. Neurovascular unremarkable. Neuro: Awake, alert, oriented. Cranial nerves II through XII unremarkable. Cerebellum unremarkable. Motor and sensory unremarkable throughout. Exam nonfocal. Notes: Dr. Braun was directly involved in this case and agrees to plan and disposition. Labs were all ordered and blood cultures and urine cultures obtained. Talked with Dr. Gutierrez at [facility] in [place] for transfer and he has accepted the patient. Supportive care measures were reviewed and discussed. Voices understanding and is agreeable to plan of care. Denies any further questions or concerns at this time. Diagnostics: CBC, CMP, blood cultures, lactic acid, UA, urine cultures Therapeutics: Saline, Rocephin, morphine Impression: 1. immunocompromised 2. h/o recent transplant 3. fever Plan: Transferred to Dr. Gutierrez at [facility] via ground EMS Definitive disposition and diagnosis as appropriate pending reevaluation and review of above. right groin Pain Score (Numeric/FACES): 6 - Related Data Allergies Allergy/AdvReac Type Severity Reaction Status Date / Time No Known Allergies Allergy Verified 08/04/18 16:22 Home Meds: Home Meds Cholecalciferol (Vitamin D3) [Vitamin D3] 2,000 unit PO DAILY 05/26/18 [History] Everolimus [Zortress] 6.5 mg PO BID 05/26/18 [History] Gabapentin [Neurontin] 100 mg PO BID 05/26/18 [History] Gabapentin [Neurontin] 400 mg PO BEDTIME 05/26/18 [History] Sodium Bicarbonate 650 mg PO BID 05/26/18 [History] Sulfamethoxazole/Trimethoprim [Bactrim 400-80 MG] 1 tab PO ASDIRECTED 05/26/18 [ History] Tacrolimus 7 mg PO BID 05/26/18 [History] amLODIPine Besylate [Amlodipine Besylate] 10 mg PO BEDTIME 05/26/18 [History] atorvaSTATin Calcium [Atorvastatin Calcium] 10 mg PO BEDTIME 05/26/18 [History] Calcitriol 0.25 mcg PO QAM 08/04/18 [History] Cefdinir 300 mg PO BID 08/04/18 [History] Inulin/Chromium Picolinate [Fiber Gummies] 1 each PO TID 08/04/18 [History] Multivitamin [Multivitamins] 1 each PO TID 08/04/18 [History] Zolpidem [Ambien] 10 mg PO BEDTIME 08/04/18 [History] Past Medical History HEENT History: Reports: Other (See Below) Other HEENT History: wears glasses/contacts Cardiovascular History: Reports: Hypertension Respiratory History: Reports: None Gastrointestinal History: Reports: None Genitourinary History: Reports: Chronic Renal Insuffiency Other Genitourinary History: FSGF 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 History: Reports: Endometrial Ablation, Other ASSISTANT CHIEF ENGINEER History: Breast Augmentation Musculoskeletal History: Reports: None Neurological History: Reports: Migraines Other Neuro History: restless leg syndrome Psychiatric History: Reports: Anxiety, Depression Endocrine/Metabolic History: Reports: Hyperparathyroidism, Obesity/BMI 30+ Hematologic History: Reports: Blood Transfusion(s) Immunologic History: Reports: Solid Organ Transplant, Other (See Below) Other Immunologic History: kidney transplant Oncologic (Cancer) History: Reports: None Dermatologic History: Reports: Other (See Below) Other Dermatologic History: unexplained bruising - Infectious Disease History Infectious Disease History: Reports: Chicken Pox - Past Surgical History HEENT Surgical History: Reports: None Cardiovascular Surgical History: Reports: Other (See Below) Other Cardiovascular Surgeries/Procedures: AV graft Respiratory Surgical History: Reports: None GI Surgical History: Reports: Bariatric Procedure, Cholecystectomy, Other (See Below) Other GI Surgeries/Procedures: abdominal plasty Female Surgical History: Reports: Hysterectomy, Tubal Ligation Other Female Surgeries/Procedures: uterine ablation Endocrine Surgical History: Reports: None Neurological Surgical History: Reports: None Musculoskeletal Surgical History: Reports: Ganglion Cyst Oncologic Surgical History: Reports: None Dermatological Surgical History: Reports: None Social & Family History - Family History Family Medical History: Noncontributory Cardiac: Reports: CAD Oncologic: Reports: Colon, Liver, Lung, Pancreatic, Other (See Below) Other Oncologic Family History: throat - Tobacco Use Smoking Status *Q: Former Smoker Second Hand Smoke Exposure: No - Caffeine Use Caffeine Use: Reports: Coffee Caffeine Use Comment: occasional - Recreational Drug Use Recreational Drug Use: No ED ROS GENERAL - Review of Systems Review Of Systems: ROS reveals no pertinent complaints other than HPI. ED EXAM, GI/ABD - Physical Exam Exam: See Below (See dictation) Course - Vital Signs Last Recorded V/S: Last Vital Signs Temp 97.6 F 08/04/18 17:53 Pulse 70 08/04/18 17:53 Resp 15 08/04/18 17:53 BP 133/88 08/04/18 17:53 Pulse Ox 95 08/04/18 17:53 - Orders/Labs/Meds Orders: Active Orders 24 hr Category Date Time Status CULTURE BLOOD [BC] Stat Lab 08/04/18 16:42 Received CULTURE BLOOD [BC] Stat Lab 08/04/18 16:54 Received CULTURE URINE [RM] Stat Lab 08/04/18 16:43 Received Sodium Chloride 0.9% [Saline Flush] Med 08/04/18 16:21 Active 10 ml FLUSH ASDIRECTED PRN Sodium Chloride 0.9% [Saline Flush] Med 08/04/18 16:21 Active 2.5 ml FLUSH ASDIRECTED PRN Blood Culture x2 Reflex Set [OM.PC] Stat Oth 08/04/18 16:31 Ordered Saline Lock Insert [OM.PC] Stat Oth 08/04/18 16:21 Ordered Medication Orders Sodium Chloride (Saline Flush) 10 ml FLUSH ASDIRECTED PRN PRN Reason: Keep Vein Open Last Admin: 08/04/18 17:36 Dose: 10 ml Sodium Chloride (Saline Flush) 2.5 ml FLUSH ASDIRECTED PRN PRN Reason: Keep Vein Open Last Admin: 08/04/18 17:36 Dose: 2.5 ml Labs: Laboratory Tests 08/04/18 08/04/18 08/04/18 Range/Units 16:31 16:31 16:31 WBC 2.92 L (4.0-11.0) K/uL RBC 4.67 (4.30-5.90) M/uL Hgb 12.8 (12.0-16.0) g/dL Hct 38.4 (36.0-46.0) % MCV 82.2 (80.0-98.0) fL MCH 27.4 (27.0-32.0) pg MCHC 33.3 (31.0-37.0) g/dL RDW Std Deviation 39.9 (28.0-62.0) fl RDW Coeff of Berny 13 (11.0-15.0) % Plt Count 309 (150-400) K/uL MPV 9.40 (7.40-12.00) fL Neut % (Auto) 64.1 (48.0-80.0) % Lymph % (Auto) 22.9 (16.0-40.0) % [place]cdowell % (Auto) 12.0 (0.0-15.0) % Eos % (Auto) 0.7 (0.0-7.0) % Baso % (Auto) 0.3 (0.0-1.5) % Neut # (Auto) 1.9 (1.4-5.7) K/uL Lymph # (Auto) 0.7 (0.6-2.4) K/uL Mcdowell # (Auto) 0.4 (0.0-0.8) K/uL Eos # (Auto) 0.0 (0.0-0.7) K/uL Baso # (Auto) 0.0 (0.0-0.1) K/uL Nucleated RBC % 0.0 /100WBC Nucleated RBCs # 0 K/uL Lactate 1.0 (0.20-2.00) mmol/L Sodium 136 (136-145) mmol/L Potassium 3.9 (3.5-5.1) mmol/L Chloride 103 (98-107) mmol/L Carbon Dioxide 23.8 (21.0-32.0) mmol/L BUN 23 H (7.0-18.0) mg/dL Creatinine 1.8 H (0.6-1.0) mg/dL Est Cr Clr Drug Dosing 31.54 mL/min Estimated GFR (MDRD) 30.6 ml/min Glucose 182 H (74-106) mg/dL Calcium 9.2 (8.5-10.1) mg/dL Total Bilirubin 0.2 (0.2-1.0) mg/dL AST 13 L (15-37) IU/L ALT 20 (14-63) IU/L Alkaline Phosphatase 133 H (46-116) U/L Total Protein 7.7 (6.4-8.2) g/dL Albumin 3.5 (3.4-5.0) g/dL Globulin 4.2 H (2.6-4.0) g/dL Albumin/Globulin Ratio 0.8 L (0.9-1.6) Urine Color Urine Appearance Urine pH (5.0-8.0) Ur Specific [place] (1.001-1.035) Urine Protein (NEGATIVE) mg/dL Urine Glucose (UA) (NEGATIVE) mg/dL Urine Ketones (NEGATIVE) mg/dL Urine Occult Blood (NEGATIVE) Urine Nitrite (NEGATIVE) Urine Bilirubin (NEGATIVE) Urine Urobilinogen (<2.0) EU/dL Ur Leukocyte Esterase (NEGATIVE) 08/04/18 Range/Units 16:43 WBC (4.0-11.0) K/uL RBC (4.30-5.90) M/uL Hgb (12.0-16.0) g/dL Hct (36.0-46.0) % MCV (80.0-98.0) fL MCH (27.0-32.0) pg MCHC (31.0-37.0) g/dL RDW Std Deviation (28.0-62.0) fl RDW Coeff of Berny (11.0-15.0) % Plt Count (150-400) K/uL MPV (7.40-12.00) fL Neut % (Auto) (48.0-80.0) % Lymph % (Auto) (16.0-40.0) % Mcdowell % (Auto) (0.0-15.0) % Eos % (Auto) (0.0-7.0) % Baso % (Auto) (0.0-1.5) % Neut # (Auto) (1.4-5.7) K/uL Lymph # (Auto) (0.6-2.4) K/uL Mcdowell # (Auto) (0.0-0.8) K/uL Eos # (Auto) (0.0-0.7) K/uL Baso # (Auto) (0.0-0.1) K/uL Nucleated RBC % /100WBC Nucleated RBCs # K/uL Lactate (0.20-2.00) mmol/L Sodium (136-145) mmol/L Potassium (3.5-5.1) mmol/L Chloride (98-107) mmol/L Carbon Dioxide (21.0-32.0) mmol/L BUN (7.0-18.0) mg/dL Creatinine (0.6-1.0) mg/dL Est Cr Clr Drug Dosing mL/min Estimated GFR (MDRD) ml/min Glucose (74-106) mg/dL Calcium (8.5-10.1) mg/dL Total Bilirubin (0.2-1.0) mg/dL AST (15-37) IU/L ALT (14-63) IU/L Alkaline Phosphatase (46-116) U/L Total Protein (6.4-8.2) g/dL Albumin (3.4-5.0) g/dL Globulin (2.6-4.0) g/dL Albumin/Globulin Ratio (0.9-1.6) Urine Color YELLOW Urine Appearance CLEAR Urine pH 6.5 (5.0-8.0) Ur Specific [place] 1.015 (1.001-1.035) Urine Protein NEGATIVE (NEGATIVE) mg/dL Urine Glucose (UA) NEGATIVE (NEGATIVE) mg/dL Urine Ketones NEGATIVE (NEGATIVE) mg/dL Urine Occult Blood NEGATIVE (NEGATIVE) Urine Nitrite NEGATIVE (NEGATIVE) Urine Bilirubin NEGATIVE (NEGATIVE) Urine Urobilinogen 0.2 (<2.0) EU/dL Ur Leukocyte Esterase NEGATIVE (NEGATIVE) Meds: Medications Generic Name Dose Route Start Last Admin Trade Name Freq PRN Reason Stop Dose Admin Sodium Chloride 10 ml 08/04/18 16:21 08/04/18 17:36 Saline Flush FLUSH 10 ml ASDIRECTED PRN Administration Keep Vein Open Sodium Chloride 2.5 ml 08/04/18 16:21 08/04/18 17:36 Saline Flush FLUSH 2.5 ml ASDIRECTED PRN Administration Keep Vein Open Discontinued Medications Generic Name Dose Route Start Last Admin Trade Name Freq PRN Reason Stop Dose Admin Ceftriaxone Sodium/Dextrose 1 50 mls @ 100 mls/hr 08/04/18 17:00 08/04/18 17: 36 gm/ Premix IV 08/04/18 17:29 100 mls/hr ONETIME ONE Administration Sodium Chloride 1,000 mls @ 999 mls/hr 08/04/18 17:01 08/04/18 17:36 Normal Saline IV 08/04/18 18:01 999 mls/hr STAT ONE Administration Morphine Sulfate 4 mg 08/04/18 18:09 Morphine IVPUSH 08/04/18 18:10 ONETIME ONE Departure - Departure Time of Disposition: 17:41 Disposition: DC/Tfer to [facility] 02 Clinical Impression: Immunocompromised, History of kidney transplant Fever Qualifiers: Fever type: unspecified Qualified Code(s): R50.9 - Fever, unspecified - Discharge Information Referrals: Jerome Perkins MD [Primary Care Provider] - Forms: ED Department Discharge, ED Department Discharge - My Orders Last 24 Hours: My Active Orders 08/04/18 16:21 Sodium Chloride 0.9% [Saline Flush] 10 ml FLUSH ASDIRECTED PRN Sodium Chloride 0.9% [Saline Flush] 2.5 ml FLUSH ASDIRECTED PRN Saline Lock Insert [OM.PC] Stat 08/04/18 16:31 Blood Culture x2 Reflex Set [OM.PC] Stat 08/04/18 16:42 CULTURE BLOOD [BC] Stat 08/04/18 16:43 CULTURE URINE [RM] Stat 08/04/18 16:54 CULTURE BLOOD [BC] Stat - Assessment/Plan Last 24 Hours: My Active Orders 08/04/18 16:21 Sodium Chloride 0.9% [Saline Flush] 10 ml FLUSH ASDIRECTED PRN Sodium Chloride 0.9% [Saline Flush] 2.5 ml FLUSH ASDIRECTED PRN Saline Lock Insert [OM.PC] Stat 08/04/18 16:31 Blood Culture x2 Reflex Set [OM.PC] Stat 08/04/18 16:42 CULTURE BLOOD [BC] Stat 08/04/18 16:43 CULTURE URINE [RM] Stat 08/04/18 16:54 CULTURE BLOOD [BC] Stat
[2018-08-04] MEDS ORDERED: cefTRIAXone 1 GM in Premix Bag 1 BAG IV ONE (17:00)
[2018-08-04] MEDS ORDERED: Sodium Chloride 0.9% 1,000 ML IV ONE (17:01)
[2018-08-04 17:54] VITALS: BP 133/88
[2018-08-04] MEDS ORDERED: Morphine 4 MG/ML Syringe IVPUSH ONE (18:09)
== END 2018-08-04 18:18 ==
LOC: MW.ED 16:11
DX: D89.9 Disorder involving the immune mechanism, unspecified (principal); R50.9 Fever, unspecified; I12.9 Hypertensive chronic kidney disease with stage 1 through stage 4 chronic kidney disease, or unspecified chronic kidney disease; N18.9 Chronic kidney disease, unspecified; E66.9 Obesity, unspecified; Z87.891 Personal history of nicotine dependence; Z94.0 Kidney transplant status; Z79.899 Other long term (current) drug therapy
CPT/HCPCS: 36415; 80053; 81003; 83605; 85025; 87040; 87086; 96365; 96375; 99285; J0696; J2270; J7040; 99284

== ENCOUNTER 2018-11-29 14:31 | Observation (INO) | payer BC, MEDICARE ==
--- NOTE | 2018-11-29 15:18 | EDM.PDOC ---
ED HPI GENERAL MEDICAL PROBLEM - General Chief Complaint: Abdominal Pain Stated Complaint: CHECK RT KIDNEY Time Seen by Provider: 11/29/18 14:42 Source of Information: Reports: Patient History Limitations: Reports: No Limitations - History of Present Illness INITIAL COMMENTS - FREE TEXT/NARRATIVE: HISTORY AND PHYSICAL: History of present illness: Patient is a 42-year-old female presents to the ED today with concern of right upper quadrant pain 2 days. Patient had a kidney transplant approximately one year ago s/p immune suppression. Patient states when she began having this right upper quadrant pain she had called over to her transplant team who suggested she come to the ED to be evaluated due to the concern of her transplant kidney. Patient states she gets her rejection medication levels drawn every few weeks and she has never had an issue or change in dose of these. Patient states she was at work yesterday she began to have right upper quadrant pain that has been constant. Patient states she's also had some diarrhea. Patient states she has had her gallbladder removed and has a history of gastric bypass as well. Patient states she's also had a hysterectomy. Patient denies any other abdominal surgeries. Patient denies any other symptoms or concerns at time. Patient denies fever, chills, chest pain, shortness of breath, or cough. Denies headache, neck stiff ness, change in vision, syncope, or near syncope. Denies nausea, vomiting, diarrhea, constipation, or dysuria. Has not noted any blood in urine or stool. Patient has been eating and drinking appropriately. Review of systems: As per history of present illness and below otherwise all systems reviewed and negative. Past medical history: As per history of present illness and as reviewed below otherwise noncontributory. Surgical history: As per history of present illness and as reviewed below otherwise noncontributory. Social history: See social history for further information Family history: As per history of present illness and as reviewed below otherwise noncontributory. Physical exam: General: Patient is alert, oriented, and in no acute distress. Patient sitting comfortably on exam table. HEENT: Atraumatic, normocephalic, pupils equal and reactive bilaterally, negative for conjunctival pallor or scleral icterus, mucous membranes moist, TMs normal bilaterally, throat clear, neck supple, nontender, trachea midline. No drooling or trismus noted. No meningeal signs. No hot potato voice noted. Lungs: Clear to auscultation, breath sounds equal bilaterally, chest nontender. Heart: S1S2, regular rate and rhythm without overt murmur Abdomen: Soft, nondistended. Moderate pain to palpation of the right upper quadrant without guarding. Negative for masses or hepatosplenomegaly. Negative for costovertebral tenderness. Pelvis: Stable nontender. Genitourinary: Deferred. Rectal: Deferred. Skin: Intact, warm, dry. No lesions or rashes noted. Extremities: Atraumatic, negative for cords or calf pain. Neurovascular unremarkable. Neuro: Awake, alert, oriented. Cranial nerves II through XII unremarkable. Cerebellum unremarkable. Motor and sensory unremarkable throughout. Exam nonfocal. Notes: Dr. Braun verbally involved in patient care. Called [facility] and spoke to Dr. Lovett, renal transplant surgeon , in depth about patient's case. Per his request, we'll start Zosyn IV and keep patient nothing by mouth. We'll also obtain urine cultures and blood cultures. According to him, will treat empirically for a potential kidney infection. Per his instruction, if patient's symptoms worsen or do not improve, can called to reevaluate for potential transfer back to [facility]. Her Dr. Lovett, he does not see any need to transfer at this time. Dr. Mcdowell consult on patient and will admit to observation. Voices understanding and is agreeable to plan of care. Denies any further questions or concerns at this time. Diagnostics: CBC, CMP, UA, abdominal pelvic CT, lipase, H. pylori, stool studies, EKG, troponin, urine culture, blood cultures x2 Therapeutics: Zosyn, Dilaudid, NS Impression: Perirenal edema / stranding of transplant kidney on CT Pancreatitis Immunocompromised Plan: 1. Admit to observation to Dr. Mcdowell. Definitive disposition and diagnosis as appropriate pending reevaluation and review of above. RQ abd Pain Score (Numeric/FACES): 5 - Related Data Allergies Allergy/AdvReac Type Severity Reaction Status Date / Time No Known Allergies Allergy Verified 08/04/18 16:22 Home Meds: Home Meds Everolimus [Zortress] 3 mg PO BID 05/26/18 [History] Gabapentin [Neurontin] 100 mg PO BID 05/26/18 [History] Gabapentin [Neurontin] 400 mg PO BEDTIME 05/26/18 [History] Sodium Bicarbonate 650 mg PO BID 05/26/18 [History] Tacrolimus 6 mg PO BID 05/26/18 [History] amLODIPine Besylate [Amlodipine Besylate] 10 mg PO BEDTIME 05/26/18 [History] Calcitriol 0.25 mcg PO QAM 08/04/18 [History] Zolpidem [Ambien] 10 mg PO BEDTIME 08/04/18 [History] Past Medical History HEENT History: Reports: Other (See Below) Other HEENT History: wears glasses/contacts Cardiovascular History: Reports: Hypertension Respiratory History: Reports: None Gastrointestinal History: Reports: None Genitourinary History: Reports: Chronic Renal Insuffiency Other Genitourinary History: FSGF, kidney transplant [place] TI[employer] 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 [employer]AYER History: Reports: Endometrial Ablation, Other [place] [employer] FLOOR [employer]AY[employer] History: Breast Augmentation Musculoskeletal History: Reports: None Neurological History: Reports: Migraines, Neuropathy, Peripheral Other Neuro History: restless leg syndrome Psychiatric History: Reports: Anxiety, Depression Endocrine/Metabolic History: Reports: Hyperparathyroidism, Obesity/BMI 30+ Hematologic History: Reports: Blood Transfusion(s) Immunologic History: Reports: Solid Organ Transplant, Other (See Below) Other Immunologic History: kidney transplant Oncologic (Cancer) History: Reports: None Dermatologic History: Reports: Other (See Below) Other Dermatologic History: unexplained bruising - Infectious Disease History Infectious Disease History: Reports: Chicken Pox - Past Surgical History HEENT Surgical History: Reports: None Respiratory Surgical History: Reports: None GI Surgical History: Reports: Bariatric Procedure, Cholecystectomy, Other (See Below) Other GI Surgeries/Procedures: abdominal plasty Female Surgical History: Reports: Hysterectomy, Tubal Ligation Other Female Surgeries/Procedures: uterine ablation Endocrine Surgical History: Reports: None Neurological Surgical History: Reports: None Musculoskeletal Surgical History: Reports: Ganglion Cyst Oncologic Surgical History: Reports: None Dermatological Surgical History: Reports: None Social & Family History - Family History Family Medical History: Noncontributory Cardiac: Reports: CAD Oncologic: Reports: Colon, Liver, Lung, Pancreatic, Other (See Below) Other Oncologic Family History: throat - Tobacco Use Smoking Status *Q: Never Smoker - Caffeine Use Caffeine Use: Reports: Coffee Caffeine Use Comment: occasional - Recreational Drug Use Recreational Drug Use: No ED ROS GENERAL - Review of Systems Review Of Systems: ROS reveals no pertinent complaints other than HPI. ED EXAM, GI/ABD - Physical Exam Exam: See Below (See dictation) Course - Vital Signs Last Recorded V/S: Last Vital Signs Temp 36.5 C 11/29/18 14:48 Pulse 68 11/29/18 17:54 Resp 17 11/29/18 17:54 BP 154/89 H 11/29/18 17:54 Pulse Ox 98 11/29/18 17:54 - Orders/Labs/Meds Orders: Active Orders 24 hr Category Date Time Status Admission Status [Patient Status] [ADT] Stat ADT 11/29/18 17:58 Ordered EKG Documentation Completion [RC] STAT Care 11/29/18 15:13 Active CDIFF TOX A+B [OP] Stat Lab 11/29/18 15:16 Ordered CULTURE BLOOD [BC] Stat Lab 11/29/18 17:23 Ordered CULTURE BLOOD [BC] Stat Lab 11/29/18 17:23 Ordered CULTURE STOOL + CAMPY+SHIGATOX [RM] Stat Lab 11/29/18 15:16 Ordered CULTURE URINE [RM] Stat Lab 11/29/18 17:24 Ordered OVA & PARASITES BY IMMUNOASSAY [MREF] Stat Lab 11/29/18 15:16 Ordered Calcitriol [Rocaltrol] Med 11/30/18 09:00 Active 0.25 mcg PO QAM Everolimus [Zortress] Med 11/29/18 21:00 Active 3 mg PO BID Gabapentin [Neurontin] Med 11/29/18 21:00 Active 100 mg PO BID Gabapentin [Neurontin] Med 11/29/18 21:00 Active 400 mg PO BEDTIME Sodium Bicarbonate Med 11/29/18 21:00 Active 650 mg PO BID Sodium Chloride 0.9% [Normal Saline] 1,000 ml Med 11/29/18 17:28 Active IV STAT Tacrolimus [Tacrolimus] Med 11/29/18 21:00 Active 6 mg PO BID Zolpidem Med 11/29/18 21:00 Active 10 mg PO BEDTIME amLODIPine [Norvasc] Med 11/29/18 21:00 Active 10 mg PO BEDTIME Blood Culture x2 Reflex Set [OM.PC] Stat Oth 11/29/18 17:23 Ordered Isolation [COMM] Stat Oth 11/29/18 15:16 Ordered Medication Orders Amlodipine Besylate (Norvasc) 10 mg PO BEDTIME ARABELLA Calcitriol (Rocaltrol) 0.25 mcg PO QAM ARABELLA Gabapentin (Neurontin) 100 mg PO BID ARABELLA Gabapentin (Neurontin) 400 mg PO BEDTIME ARABELLA Sodium Chloride (Normal Saline) 1,000 mls @ 999 mls/hr IV STAT ONE Stop: 11/29/18 18:28 Last Admin: 11/29/18 17:48 Dose: 999 mls/hr Non-Formulary Medication (Everolimus [Zortress]) 3 mg PO BID ARABELLA Non-Formulary Medication (Tacrolimus [Tacrolimus]) 6 mg PO BID ARABELLA Non-Formulary Medication (Zolpidem) 10 mg PO BEDTIME ARABELLA Sodium Bicarbonate (Sodium Bicarbonate) 650 mg PO BID ARABELLA Labs: Laboratory Tests 11/29/18 11/29/18 11/29/18 Range/Units 14:47 14:47 14:47 WBC 3.11 L (4.0-11.0) K/uL RBC 5.52 (4.30-5.90) M/uL Hgb 13.2 (12.0-16.0) g/dL Hct 41.7 (36.0-46.0) % MCV 75.5 L (80.0-98.0) fL MCH 23.9 L (27.0-32.0) pg MCHC 31.7 (31.0-37.0) g/dL RDW Std Deviation 39.2 (28.0-62.0) fl RDW Coeff of Berny 14 (11.0-15.0) % Plt Count 254 (150-400) K/uL MPV 9.40 (7.40-12.00) fL Neut % (Auto) 61.4 (48.0-80.0) % Lymph % (Auto) 24.1 (16.0-40.0) % [place] % (Auto) 12.9 (0.0-15.0) % Eos % (Auto) 1.0 (0.0-7.0) % Baso % (Auto) 0.6 (0.0-1.5) % Neut # (Auto) 1.9 (1.4-5.7) K/uL Lymph # (Auto) 0.8 (0.6-2.4) K/uL [place] # (Auto) 0.4 (0.0-0.8) K/uL Eos # (Auto) 0.0 (0.0-0.7) K/uL Baso # (Auto) 0.0 (0.0-0.1) K/uL Nucleated RBC % 0.0 /100WBC Nucleated RBCs # 0 K/uL Sodium 138 (136-145) mmol/L Potassium 3.6 (3.5-5.1) mmol/L Chloride 107 (98-107) mmol/L Carbon Dioxide 22.0 (21.0-32.0) mmol/L BUN 25 H (7.0-18.0) mg/dL Creatinine 1.7 H (0.6-1.0) mg/dL Est Cr Clr Drug Dosing 33.40 mL/min Estimated GFR (MDRD) 32.6 ml/min Glucose 93 (74-106) mg/dL Calcium 9.3 (8.5-10.1) mg/dL Total Bilirubin 0.3 (0.2-1.0) mg/dL AST 11 L (15-37) IU/L ALT 14 (14-63) IU/L Alkaline Phosphatase 140 H (46-116) U/L Troponin I < 0.050 (0.000-0.056) ng/mL Total Protein 7.5 (6.4-8.2) g/dL Albumin 3.6 (3.4-5.0) g/dL Globulin 3.9 (2.6-4.0) g/dL Albumin/Globulin Ratio 0.9 (0.9-1.6) Lipase 704 H (73-393) U/L Urine Color Urine Appearance Urine pH (5.0-8.0) Ur Specific [place] (1.001-1.035) Urine Protein (NEGATIVE) mg/dL Urine Glucose (UA) (NEGATIVE) mg/dL Urine Ketones (NEGATIVE) mg/dL Urine Occult Blood (NEGATIVE) Urine Nitrite (NEGATIVE) Urine Bilirubin (NEGATIVE) Urine Urobilinogen (<2.0) EU/dL Ur Leukocyte Esterase (NEGATIVE) Urine HCG, Qual (NEGATIVE) H. pylori IgG Antibody (NEG) 11/29/18 11/29/18 11/29/18 Range/Units 14:47 14:58 14:58 WBC (4.0-11.0) K/uL RBC (4.30-5.90) M/uL Hgb (12.0-16.0) g/dL Hct (36.0-46.0) % MCV (80.0-98.0) fL MCH (27.0-32.0) pg MCHC (31.0-37.0) g/dL RDW Std Deviation (28.0-62.0) fl RDW Coeff of Berny (11.0-15.0) % Plt Count (150-400) K/uL MPV (7.40-12.00) fL Neut % (Auto) (48.0-80.0) % Lymph % (Auto) (16.0-40.0) % [place] % (Auto) (0.0-15.0) % Eos % (Auto) (0.0-7.0) % Baso % (Auto) (0.0-1.5) % Neut # (Auto) (1.4-5.7) K/uL Lymph # (Auto) (0.6-2.4) K/uL [place] # (Auto) (0.0-0.8) K/uL Eos # (Auto) (0.0-0.7) K/uL Baso # (Auto) (0.0-0.1) K/uL Nucleated RBC % /100WBC Nucleated RBCs # K/uL Sodium (136-145) mmol/L Potassium (3.5-5.1) mmol/L Chloride (98-107) mmol/L Carbon Dioxide (21.0-32.0) mmol/L BUN (7.0-18.0) mg/dL Creatinine (0.6-1.0) mg/dL Est Cr Clr Drug Dosing mL/min Estimated GFR (MDRD) ml/min Glucose (74-106) mg/dL Calcium (8.5-10.1) mg/dL Total Bilirubin (0.2-1.0) mg/dL AST (15-37) IU/L ALT (14-63) IU/L Alkaline Phosphatase (46-116) U/L Troponin I (0.000-0.056) ng/mL Total Protein (6.4-8.2) g/dL Albumin (3.4-5.0) g/dL Globulin (2.6-4.0) g/dL Albumin/Globulin Ratio (0.9-1.6) Lipase (73-393) U/L Urine Color STRAW Urine Appearance CLEAR Urine pH 6.0 (5.0-8.0) Ur Specific [place] <= 1.005 (1.001-1.035) Urine Protein NEGATIVE (NEGATIVE) mg/dL Urine Glucose (UA) NEGATIVE (NEGATIVE) mg/dL Urine Ketones NEGATIVE (NEGATIVE) mg/dL Urine Occult Blood NEGATIVE (NEGATIVE) Urine Nitrite NEGATIVE (NEGATIVE) Urine Bilirubin NEGATIVE (NEGATIVE) Urine Urobilinogen 0.2 (<2.0) EU/dL Ur Leukocyte Esterase NEGATIVE (NEGATIVE) Urine HCG, Qual NEGATIVE (NEGATIVE) H. pylori IgG Antibody NEGATIVE (NEG) Meds: Medications Generic Name Dose Route Start Last Admin Trade Name Freq PRN Reason Stop Dose Admin Amlodipine Besylate 10 mg 11/29/18 21:00 Norvasc PO BEDTIME ARABELLA Calcitriol 0.25 mcg 11/30/18 09:00 Rocaltrol PO QAM ARABELLA Gabapentin 100 mg 11/29/18 21:00 Neurontin PO BID ARABELLA Gabapentin 400 mg 11/29/18 21:00 Neurontin PO BEDTIME ARABELLA Sodium Chloride 1,000 mls @ 999 mls/hr 11/29/18 17:28 11/29/18 17:48 Normal Saline IV 11/29/18 18:28 999 mls/hr STAT ONE Administration Non-Formulary Medication 3 mg 11/29/18 21:00 Everolimus [Zortress] PO BID ARABELLA Non-Formulary Medication 6 mg 11/29/18 21:00 Tacrolimus [Tacrolimus] PO BID ARABELLA Non-Formulary Medication 10 mg 11/29/18 21:00 Zolpidem PO BEDTIME [facility] Sodium Bicarbonate 650 mg 11/29/18 21:00 Sodium Bicarbonate PO BID ARABELLA Discontinued Medications Generic Name Dose Route Start Last Admin Trade Name Freq PRN Reason Stop Dose Admin Hydromorphone HCl 1 mg 11/29/18 17:28 11/29/18 17:44 Dilaudid IVPUSH 11/29/18 17:29 1 mg ONETIME ONE Administration Piperacillin Sod/Tazobactam 50 mls @ 100 mls/hr 11/29/18 17:22 11/29/18 17:44 Sod 3.375 gm/ Sodium Chloride IV 11/29/18 17:51 100 mls/hr ONETIME ONE Administration Departure - Departure Time of Disposition: 18:00 Disposition: Refer to Observation Clinical Impression: Immunocompromised Pancreatitis Qualifiers: Chronicity: acute Pancreatitis type: unspecified pancreatitis type Acute pancreatitis complication: unspecified Qualified Code(s): K85.90 - Acute pancreatitis without necrosis or infection, unspecified Kidney transplant complication Qualifiers: Transplant complication type: unspecified Qualified Code(s): T86.10 - Unspecified complication of kidney transplant - Discharge Information - My Orders Last 24 Hours: My Active Orders 11/29/18 15:13 EKG Documentation Completion [RC] STAT 11/29/18 15:16 CDIFF TOX A+B [OP] Stat CULTURE STOOL + CAMPY+SHIGATOX [RM] Stat OVA & PARASITES BY IMMUNOASSAY [MREF] Stat Isolation [COMM] Stat 11/29/18 17:23 CULTURE BLOOD [BC] Stat CULTURE BLOOD [BC] Stat Blood Culture x2 Reflex Set [OM.PC] Stat 11/29/18 17:24 CULTURE URINE [RM] Stat 11/29/18 17:28 Sodium Chloride 0.9% [Normal Saline] 1,000 ml IV STAT 11/29/18 17:58 Admission Status [Patient Status] [ADT] Stat - Assessment/Plan Last 24 Hours: My Active Orders 11/29/18 15:13 EKG Documentation Completion [RC] STAT 11/29/18 15:16 CDIFF TOX A+B [OP] Stat CULTURE STOOL + CAMPY+SHIGATOX [RM] Stat OVA & PARASITES BY IMMUNOASSAY [MREF] Stat Isolation [COMM] Stat 11/29/18 17:23 CULTURE BLOOD [BC] Stat CULTURE BLOOD [BC] Stat Blood Culture x2 Reflex Set [OM.PC] Stat 11/29/18 17:24 CULTURE URINE [RM] Stat 11/29/18 17:28 Sodium Chloride 0.9% [Normal Saline] 1,000 ml IV STAT 11/29/18 17:58 Admission Status [Patient Status] [ADT] Stat
--- NOTE | 2018-11-29 16:17 | CT ---
CT of the abdomen and pelvis without contrast. HISTORY: Pain TECHNIQUE: Axial CT images were obtained of the abdomen and pelvis without contrast. Coronal and sagittal reconstructions obtained. FINDINGS: The lung bases are clear, no pleural effusion. The liver, spleen, adrenal glands, and pancreas appear unremarkable for noncontrast examination. Cholecystectomy clips are noted. There is no bulky retroperitoneal lymphadenopathy. No abdominal ascites. Gastric bypass changes noted. The [place] kidneys appear atrophic. There is a right lower quadrant transplant kidney noted with mild perirenal stranding. The transplant renal pelvis faces outward. There is mild edema also noted within the hilum without definitive hydronephrosis. The large and small bowel are normal in caliber without evidence of obstruction. The appendix appears normal. There is no bulky pelvic lymphadenopathy. No free fluid. No free air. The urinary bladder appears normal. The visualized osseous structures appear normal. IMPRESSION: 1. There is perirenal edema and stranding adjacent to the right lower quadrant transplant kidney. There is no definite hydronephrosis. This may represent underlying pyelonephritis, however other factors such as ejection or venous thrombosis cannot be excluded.
[2018-11-29] MEDS ORDERED: Piperacillin/Tazobactam 3.375 GM in Sodium Chloride 0.9% 50 ML IV ONE (17:22)
[2018-11-29] MEDS ORDERED: HYDROmorphone 2 MG/ML Syringe IVPUSH ONE (17:28)
[2018-11-29] MEDS ORDERED: Sodium Chloride 0.9% 1,000 ML IV ONE (17:28)
[2018-11-29] MEDS ORDERED: Docusate Sodium 100 MG Cap PO PRN (18:00)
[2018-11-29] MEDS ORDERED: Acetaminophen 325 MG Tab PO PRN (18:00)
[2018-11-29] MEDS ORDERED: oxyCODONE 5 MG Tab PO PRN (18:00)
[2018-11-29] MEDS ORDERED: Ondansetron 4 MG Tab.DIS PO PRN (18:00)
[2018-11-29] MEDS ORDERED: Heparin Sodium 5,000 Units/ML Vial SUBCUT SCH (18:00)
[2018-11-29] MEDS ORDERED: Morphine 10 MG/ML Syringe IVPUSH PRN (18:00)
--- NOTE | 2018-11-29 18:05 | PCM.HP ---
H&P History of Present Illness - General Date of Service: 11/29/18 Admit Problem/Dx: Admission Diagnosis/Problem Admission Diagnosis/Problem Pancreatitis Source of Information: Patient History Limitations: Reports: No Limitations - History of Present Illness Initial Comments - Free Text/Narative: The patient is a 42-year-old lady who had presented to the emergency department primarily with a complaint of upper abdominal pain. The patient had a renal transplant one year ago secondary to chronic renal failure and she has been doing well with this. The patient says the pain previously had been where her transplanted kidney was but now for the past several days pain is located higher up in her abdomen. The transplant team had been called by emergency department provider and had recommended that the patient be treated for pyelonephritis. The patient has denied any nausea or vomiting. She has felt cold even on warm days. No diarrhea or constipation. She's had no dizziness or lightheadedness. The patient has been taking her antirejection medication on a regular basis. Onset of Symptoms: Reports: Gradual Duration of Symptoms: Reports: Day(s): Location: Reports: Abdomen Quality: Reports: Ache, Dull Severity: Mild Improves with: Reports: None Worsens with: Reports: None Context: Reports: Other (Renal transplant) Associated Symptoms: Reports: Fever/Chills RQ abd Pain Score (Numeric/FACES): 5 - Related Data Allergies/Adverse Reactions: Allergies Allergy/AdvReac Type Severity Reaction Status Date / Time No Known Allergies Allergy Verified 08/04/18 16:22 Home Medications: Home Meds Everolimus [Zortress] 3 mg PO BID 05/26/18 [History] Gabapentin [Neurontin] 100 mg PO BID 05/26/18 [History] Gabapentin [Neurontin] 400 mg PO BEDTIME 05/26/18 [History] Sodium Bicarbonate 650 mg PO BID 05/26/18 [History] Tacrolimus 6 mg PO BID 05/26/18 [History] amLODIPine Besylate [Amlodipine Besylate] 10 mg PO BEDTIME 05/26/18 [History] Calcitriol 0.25 mcg PO QAM 08/04/18 [History] Zolpidem [Ambien] 10 mg PO BEDTIME 08/04/18 [History] Past Medical History HEENT History: Reports: Other (See Below) Other HEENT History: wears glasses/contacts Cardiovascular History: Reports: Hypertension Respiratory History: Reports: None Gastrointestinal History: Reports: None Genitourinary History: Reports: Chronic Renal Insuffiency Other Genitourinary History: FSGF, kidney transplant [employer] History: Reports: Endometrial Ablation, Other OB/BYN History: Breast Augmentation Musculoskeletal History: Reports: None Neurological History: Reports: Migraines, Neuropathy, Peripheral Other Neuro History: restless leg syndrome Psychiatric History: Reports: Anxiety, Depression Endocrine/Metabolic History: Reports: Hyperparathyroidism, Obesity/BMI 30+ Hematologic History: Reports: Blood Transfusion(s) Immunologic History: Reports: Solid Organ Transplant, Other (See Below) Other Immunologic History: kidney transplant Oncologic (Cancer) History: Reports: None Dermatologic History: Reports: Other (See Below) Other Dermatologic History: unexplained bruising - Infectious Disease History Infectious Disease History: Reports: Chicken Pox - Past Surgical History HEENT Surgical History: Reports: None Respiratory Surgical History: Reports: None GI Surgical History: Reports: Bariatric Procedure, Cholecystectomy, Other (See Below) Other GI Surgeries/Procedures: abdominal plasty Female Surgical History: Reports: Hysterectomy, Tubal Ligation, Other (See Below) (Renal transplant) Other Female Surgeries/Procedures: uterine ablation Endocrine Surgical History: Reports: None Neurological Surgical History: Reports: None Musculoskeletal Surgical History: Reports: Ganglion Cyst Oncologic Surgical History: Reports: None Dermatological Surgical History: Reports: None Social & Family History - Family History Family Medical History: Noncontributory Cardiac: Reports: CAD Oncologic: Reports: Colon, Liver, Lung, Pancreatic, Other (See Below) Other Oncologic Family History: throat - Tobacco Use Smoking Status *Q: Never Smoker - Caffeine Use Caffeine Use: Reports: Coffee Caffeine Use Comment: occasional - Recreational Drug Use Recreational Drug Use: No - Living Situation & Occupation Living situation: Reports: Occupation: Unemployed H&P Review of Systems - Review of Systems: Review Of Systems: See Below General: Reports: Weakness HEENT: Reports: No Symptoms Pulmonary: Reports: No Symptoms Cardiovascular: Reports: No Symptoms Gastrointestinal: Reports: Abdominal Pain Genitourinary: Reports: No Symptoms Musculoskeletal: Reports: No Symptoms Skin: Reports: No Symptoms Psychiatric: Reports: No Symptoms Neurological: Reports: No Symptoms Hematologic/Lymphatic: Reports: No Symptoms Immunologic: Reports: No Symptoms Exam - Exam Exam: See Below - Vital Signs Vital Signs: Last Vital Signs Temp 36.5 C 11/29/18 14:48 Pulse 68 11/29/18 17:54 Resp 17 11/29/18 17:54 BP 154/89 H 11/29/18 17:54 Pulse Ox 98 11/29/18 17:54 Weight: 86.183 kg - Exam Quality Assessment: No: Supplemental Oxygen General: Alert, Oriented, Cooperative HEENT: Conjunctiva Clear, EACs Clear, EOMI, Nares Patent, Pupils Equal, PERRLA. No: Mucosa Moist & [place] (Dry) Neck: Supple, Trachea Midline Lungs: Clear to Auscultation, Normal Respiratory Effort Cardiovascular: Regular Rate, Regular Rhythm GI/Abdominal Exam: Normal Bowel Sounds, Soft, Non-Tender, No Distention, Other ( Multiple surgery scars). No: Guarding, Rigid, Rebound Back Exam: Normal Inspection, Full Range of Motion Extremities: Normal Inspection, Normal Range of Motion, No Pedal Edema Skin: Warm, Dry, Intact Neurological: Cranial Nerves Intact Neuro Extensive - Mental Status: Alert, Oriented x3 Neuro Extensive - Motor, Sensory, Reflexes: CN II-XII Intact, Normal Gait Psychiatric: Alert, Normal Affect, Normal Mood - Patient Data Lab Results Last 24 hrs: Laboratory Results - last 24 hr 11/29/18 11/29/18 11/29/18 Range/Units 14:47 14:47 14:47 WBC 3.11 L (4.0-11.0) K/uL RBC 5.52 (4.30-5.90) M/uL Hgb 13.2 (12.0-16.0) g/dL Hct 41.7 (36.0-46.0) % MCV 75.5 L (80.0-98.0) fL MCH 23.9 L (27.0-32.0) pg MCHC 31.7 (31.0-37.0) g/dL RDW Std Deviation 39.2 (28.0-62.0) fl RDW Coeff of Berny 14 (11.0-15.0) % Plt Count 254 (150-400) K/uL MPV 9.40 (7.40-12.00) fL Neut % (Auto) 61.4 (48.0-80.0) % Lymph % (Auto) 24.1 (16.0-40.0) % [place] % (Auto) 12.9 (0.0-15.0) % Eos % (Auto) 1.0 (0.0-7.0) % Baso % (Auto) 0.6 (0.0-1.5) % Neut # (Auto) 1.9 (1.4-5.7) K/uL Lymph # (Auto) 0.8 (0.6-2.4) K/uL [place] # (Auto) 0.4 (0.0-0.8) K/uL Eos # (Auto) 0.0 (0.0-0.7) K/uL Baso # (Auto) 0.0 (0.0-0.1) K/uL Nucleated RBC % 0.0 /100WBC Nucleated RBCs # 0 K/uL Sodium 138 (136-145) mmol/L Potassium 3.6 (3.5-5.1) mmol/L Chloride 107 (98-107) mmol/L Carbon Dioxide 22.0 (21.0-32.0) mmol/L BUN 25 H (7.0-18.0) mg/dL Creatinine 1.7 H (0.6-1.0) mg/dL Est Cr Clr Drug Dosing 33.40 mL/min Estimated GFR (MDRD) 32.6 ml/min Glucose 93 (74-106) mg/dL Calcium 9.3 (8.5-10.1) mg/dL Total Bilirubin 0.3 (0.2-1.0) mg/dL AST 11 L (15-37) IU/L ALT 14 (14-63) IU/L Alkaline Phosphatase 140 H (46-116) U/L Troponin I < 0.050 (0.000-0.056) ng/mL Total Protein 7.5 (6.4-8.2) g/dL Albumin 3.6 (3.4-5.0) g/dL Globulin 3.9 (2.6-4.0) g/dL Albumin/Globulin Ratio 0.9 (0.9-1.6) Lipase 704 H (73-393) U/L Urine Color Urine Appearance Urine pH (5.0-8.0) Ur Specific [place] (1.001-1.035) Urine Protein (NEGATIVE) mg/dL Urine Glucose (UA) (NEGATIVE) mg/dL Urine Ketones (NEGATIVE) mg/dL Urine Occult Blood (NEGATIVE) Urine Nitrite (NEGATIVE) Urine Bilirubin (NEGATIVE) Urine Urobilinogen (<2.0) EU/dL Ur Leukocyte Esterase (NEGATIVE) Urine HCG, Qual (NEGATIVE) H. pylori IgG Antibody (NEG) 11/29/18 11/29/18 11/29/18 Range/Units 14:47 14:58 14:58 WBC (4.0-11.0) K/uL RBC (4.30-5.90) M/uL Hgb (12.0-16.0) g/dL Hct (36.0-46.0) % MCV (80.0-98.0) fL MCH (27.0-32.0) pg MCHC (31.0-37.0) g/dL RDW Std Deviation (28.0-62.0) fl RDW Coeff of Berny (11.0-15.0) % Plt Count (150-400) K/uL MPV (7.40-12.00) fL Neut % (Auto) (48.0-80.0) % Lymph % (Auto) (16.0-40.0) % [place] % (Auto) (0.0-15.0) % Eos % (Auto) (0.0-7.0) % Baso % (Auto) (0.0-1.5) % Neut # (Auto) (1.4-5.7) K/uL Lymph # (Auto) (0.6-2.4) K/uL [place] # (Auto) (0.0-0.8) K/uL Eos # (Auto) (0.0-0.7) K/uL Baso # (Auto) (0.0-0.1) K/uL Nucleated RBC % /100WBC Nucleated RBCs # K/uL Sodium (136-145) mmol/L Potassium (3.5-5.1) mmol/L Chloride (98-107) mmol/L Carbon Dioxide (21.0-32.0) mmol/L BUN (7.0-18.0) mg/dL Creatinine (0.6-1.0) mg/dL Est Cr Clr Drug Dosing mL/min Estimated GFR (MDRD) ml/min Glucose (74-106) mg/dL Calcium (8.5-10.1) mg/dL Total Bilirubin (0.2-1.0) mg/dL AST (15-37) IU/L ALT (14-63) IU/L Alkaline Phosphatase (46-116) U/L Troponin I (0.000-0.056) ng/mL Total Protein (6.4-8.2) g/dL Albumin (3.4-5.0) g/dL Globulin (2.6-4.0) g/dL Albumin/Globulin Ratio (0.9-1.6) Lipase (73-393) U/L Urine Color STRAW Urine Appearance CLEAR Urine pH 6.0 (5.0-8.0) Ur Specific [place] <= 1.005 (1.001-1.035) Urine Protein NEGATIVE (NEGATIVE) mg/dL Urine Glucose (UA) NEGATIVE (NEGATIVE) mg/dL Urine Ketones NEGATIVE (NEGATIVE) mg/dL Urine Occult Blood NEGATIVE (NEGATIVE) Urine Nitrite NEGATIVE (NEGATIVE) Urine Bilirubin NEGATIVE (NEGATIVE) Urine Urobilinogen 0.2 (<2.0) EU/dL Ur Leukocyte Esterase NEGATIVE (NEGATIVE) Urine HCG, Qual NEGATIVE (NEGATIVE) H. pylori IgG Antibody NEGATIVE (NEG) Result Diagrams: 11/29/18 14:47 11/29/18 14:47 - Problem List (1) Pancreatitis SNOMED Code(s): 56820169 ICD Code: K85.90 - ACUTE PANCREATITIS WITHOUT NECROSIS OR INFECTION, UNSP Status: Acute Priority: High Current Visit: Yes Qualifiers: Chronicity: acute Pancreatitis type: unspecified pancreatitis type Acute pancreatitis complication: unspecified Qualified Code(s): K85.90 - Acute pancreatitis without necrosis or infection, unspecified (2) Immunocompromised SNOMED Code(s): 823858026 ICD Code: D84.9 - IMMUNODEFICIENCY, UNSPECIFIED Status: Chronic Priority : High Current Visit: Yes (3) Kidney transplant complication SNOMED Code(s): 29773777 ICD Code: T86.10 - UNSPECIFIED COMPLICATION OF KIDNEY TRANSPLANT Status: Chronic Priority: Medium Current Visit: Yes Qualifiers: Transplant complication type: unspecified Qualified Code(s): T86.10 - Unspecified complication of kidney transplant (4) Abdominal pain SNOMED Code(s): 63647074 ICD Code: R10.9 - UNSPECIFIED ABDOMINAL PAIN Status: Acute Priority: High Current Visit: Yes (5) Anxiety SNOMED Code(s): 55356334 ICD Code: F41.9 - ANXIETY DISORDER, UNSPECIFIED Status: Chronic Priority : High Current Visit: Yes (6) Dehydration, mild SNOMED Code(s): 3187246140016 ICD Code: E86.0 - DEHYDRATION Status: Acute Priority: High Current Visit: Yes Problem List Initiated/Reviewed/Updated: Yes Orders Last 24hrs: Active Orders 24 hr Category Date Time Status Admission Status [Patient Status] [ADT] Stat ADT 11/29/18 17:58 Active EKG Documentation Completion [RC] STAT Care 11/29/18 15:13 Active Oxygen Therapy [RC] PRN Care 11/29/18 18:00 Active Up ad Dayan [RC] ASDIRECTED Care 11/29/18 18:00 Active VTE/DVT Education [RC] PER UNIT ROUTINE Care 11/29/18 18:00 Active Vital Signs [RC] Q4H Care 11/29/18 18:00 Active Nothing per Oral Now Diet [DIET] Diet 11/29/18 Breakfast Active CBC WITH AUTO DIFF [HEME] AM Lab 11/30/18 05:11 Ordered CDIFF TOX A+B [OP] Stat Lab 11/29/18 15:16 Ordered COMPREHENSIVE METABOLIC PN,CMP [CHEM] AM Lab 11/30/18 05:11 Ordered CULTURE BLOOD [BC] Stat Lab 11/29/18 17:23 Ordered CULTURE BLOOD [BC] Stat Lab 11/29/18 17:23 Ordered CULTURE STOOL + CAMPY+SHIGATOX [RM] Stat Lab 11/29/18 15:16 Ordered CULTURE URINE [RM] Stat Lab 11/29/18 17:24 Ordered OVA & PARASITES BY IMMUNOASSAY [MREF] Stat Lab 11/29/18 15:16 Ordered Acetaminophen [Tylenol] Med 11/29/18 18:00 Active 650 mg PO Q4H PRN Calcitriol [Rocaltrol] Med 11/30/18 09:00 Active 0.25 mcg PO QAM Docusate Sodium [Colace] Med 11/29/18 18:00 Active 100 mg PO BID PRN Everolimus [Zortress] Med 11/29/18 21:00 Active 3 mg PO BID Gabapentin [Neurontin] Med 11/29/18 21:00 Active 100 mg PO BID Gabapentin [Neurontin] Med 11/29/18 21:00 Active 400 mg PO BEDTIME Heparin Sodium Med 11/29/18 18:00 Active 5,000 units SUBCUT Q8H Morphine Med 11/29/18 18:00 Active 2 mg IVPUSH Q2H PRN Ondansetron [Zofran ODT] Med 11/29/18 18:00 Active 4 mg PO Q6H PRN Sodium Bicarbonate Med 11/29/18 21:00 Active 650 mg PO BID Sodium Chloride 0.9% [Normal Saline] 1,000 ml Med 11/29/18 18:00 Active IV ASDIRECTED Sodium Chloride 0.9% [Normal Saline] 1,000 ml Med 11/29/18 17:28 Active IV STAT Tacrolimus [Tacrolimus] Med 11/29/18 21:00 Active 6 mg PO BID Zolpidem Med 11/29/18 21:00 Active 10 mg PO BEDTIME amLODIPine [Norvasc] Med 11/29/18 21:00 Active 10 mg PO BEDTIME oxyCODONE Med 11/29/18 18:00 Active 5 mg PO Q4H PRN Blood Culture x2 Reflex Set [OM.PC] Stat Oth 11/29/18 17:23 Ordered Isolation [COMM] Stat Oth 11/29/18 15:16 Ordered Resuscitation Status Routine Resus Stat 11/29/18 18:00 Ordered Medication Orders Acetaminophen (Tylenol) 650 mg PO Q4H PRN PRN Reason: Pain (Mild 1-3)/fever Amlodipine Besylate (Norvasc) 10 mg PO BEDTIME [facility] Calcitriol (Rocaltrol) 0.25 mcg PO QAM [facility] Docusate Sodium (Colace) 100 mg PO BID PRN PRN Reason: Constipation Gabapentin (Neurontin) 100 mg PO BID [facility] Gabapentin (Neurontin) 400 mg PO BEDTIME [facility] Heparin Sodium (Porcine) (Heparin Sodium) 5,000 units SUBCUT Q8H [facility] Sodium Chloride (Normal Saline) 1,000 mls @ 999 mls/hr IV STAT ONE Stop: 11/29/18 18:28 Last Admin: 11/29/18 17:48 Dose: 999 mls/hr Sodium Chloride (Normal Saline) 1,000 mls @ 100 mls/hr IV ASDIRECTED [facility]ABE[facility] Morphine Sulfate (Morphine) 2 mg IVPUSH Q2H PRN PRN Reason: Pain (severe 7-10) Stop: 11/30/18 18:01 Non-Formulary Medication (Everolimus [Zortress]) 3 mg PO BID [facility] Non-Formulary Medication (Tacrolimus [Tacrolimus]) 6 mg PO BID [facility] Non-Formulary Medication (Zolpidem) 10 mg PO BEDTIME [facility] Ondansetron HCl (Zofran Odt) 4 mg PO Q6H PRN PRN Reason: nausea, able to take PO Oxycodone HCl (Oxycodone) 5 mg PO Q4H PRN PRN Reason: Pain (moderate 4-6) Sodium Bicarbonate (Sodium Bicarbonate) 650 mg PO BID [facility] Assessment/Plan Comment:: The patient is a 42-year-old lady who had presented to the emergency department primarily out of concern for abdominal pain and was noted to have a mild elevation of her lipase. Interestingly, CT scan had showed stranding around her transplanted kidney. Confirmation to the emergency department with regards to discussion with the patient's transplant team had recommended that the patient be placed here in observation. The patient will be kept on Zosyn. 3.375 g every 12 hours due to her renal insufficiency. The patient will also be provided with heparin for DVT prophylaxis. For now the patient will be kept on normal saline at 100 mL per hour and she will have pain control with regards to pancreatitis. I've ordered repeat laboratory testing for tomorrow. Patient has been encouraged to ambulate.
[2018-11-29] MEDS: Sodium Chloride 0.9% 1,000 ML IV SCH (20:00)
[2018-11-29] MEDS ORDERED: Morphine 2 MG/ML Syringe IVPUSH PRN (20:45)
[2018-11-29] MEDS ORDERED: EVEROLIMUS PO SCH (21:00)
[2018-11-29] MEDS ORDERED: TACROLIMUS 6 MG PO SCH (21:00)
[2018-11-29] MEDS ORDERED: Non-Formulary Medication 1 Each (Zolpidem 10 MG) PO SCH (21:00)
[2018-11-29] MEDS ORDERED: Gabapentin 100 MG Cap PO SCH (21:00)
[2018-11-29] MEDS: Gabapentin 100 MG Cap PO SCH (21:02)
[2018-11-29] MEDS: Sodium Bicarbonate 650 MG Tab PO SCH (21:03)
[2018-11-29] MEDS: amLODIPine 5 MG Tab PO SCH (21:03)
[2018-11-29] MEDS: Heparin Sodium 5,000 Units/ML Vial SUBCUT SCH (21:12)
[2018-11-29] MEDS: HYDROmorphone 1 MG/ML Syringe IVPUSH PRN (22:35)
[2018-11-30] MEDS: HYDROmorphone 1 MG/ML Syringe IVPUSH PRN ×7 (04:00→23:11)
[2018-11-30] MEDS: Sodium Chloride 0.9% 1,000 ML IV SCH ×2 (04:03→19:21)
[2018-11-30] MEDS: Heparin Sodium 5,000 Units/ML Vial SUBCUT SCH ×3 (05:21→21:01)
--- NOTE | 2018-11-30 08:41 | PCM.PN ---
- General Info Date of Service: 11/30/18 Admission Dx/Problem (Free Text): Admission Diagnosis/Problem Admission Diagnosis/Problem Pancreatitis, pyelonephritis, transplanted kidney, immunocompromised Subjective Update: The patient is a 42-year-old lady who had been admitted to acute hospitalization secondary to pancreatitis, abdominal pain CT scan was suggestive of pyelonephritis with her transplanted kidney. The patient is doing well today. She has less abdominal pain although it is more localized to her transplanted kidney. The patient has been nothing by mouth however, she feels like she can eat. The patient has denied any fever or chills. Functional Status: Reports: Pain Controlled - Review of Systems General: Reports: No Symptoms HEENT: Reports: No Symptoms Pulmonary: Reports: No Symptoms Cardiovascular: Reports: No Symptoms Gastrointestinal: Reports: Abdominal Pain Genitourinary: Reports: No Symptoms Musculoskeletal: Reports: No Symptoms Skin: Reports: No Symptoms Neurological: Reports: No Symptoms Psychiatric: Reports: No Symptoms - Patient Data Vitals - Most Recent: Last Vital Signs Temp 36.9 C 11/30/18 08:00 Pulse 73 11/30/18 08:00 Resp 18 11/30/18 08:00 BP 134/84 11/30/18 08:00 Pulse Ox 98 11/30/18 08:00 Weight - Most Recent: 81.828 kg I&O - Last 24 Hours: Intake & Output 11/29/18 11/30/18 11/30/18 22:59 06:59 14:59 Intake Total 943 Balance 943 Lab Results Last 24 Hours: Laboratory Results - last 24 hr 11/29/18 11/29/18 11/29/18 Range/Units 14:47 14:47 14:47 WBC 3.11 L (4.0-11.0) K/uL RBC 5.52 (4.30-5.90) M/uL Hgb 13.2 (12.0-16.0) g/dL Hct 41.7 (36.0-46.0) % MCV 75.5 L (80.0-98.0) fL MCH 23.9 L (27.0-32.0) pg MCHC 31.7 (31.0-37.0) g/dL RDW Std Deviation 39.2 (28.0-62.0) fl RDW Coeff of Berny 14 (11.0-15.0) % Plt Count 254 (150-400) K/uL MPV 9.40 (7.40-12.00) fL Neut % (Auto) 61.4 (48.0-80.0) % Lymph % (Auto) 24.1 (16.0-40.0) % [place] % (Auto) 12.9 (0.0-15.0) % Eos % (Auto) 1.0 (0.0-7.0) % Baso % (Auto) 0.6 (0.0-1.5) % Neut # (Auto) 1.9 (1.4-5.7) K/uL Lymph # (Auto) 0.8 (0.6-2.4) K/uL [place] # (Auto) 0.4 (0.0-0.8) K/uL Eos # (Auto) 0.0 (0.0-0.7) K/uL Baso # (Auto) 0.0 (0.0-0.1) K/uL Add Manual Diff Neutrophils % (Manual) (48.0-80.0) % Band Neutrophils % % Lymphocytes % (Manual) (16.0-40.0) % Monocytes % (Manual) (0.0-15.0) % Nucleated RBC % 0.0 /100WBC Absolute Seg Neuts (1.4-5.7) Band Neutrophils # Lymphocytes # (Manual) (0.6-2.4) Monocytes # (Manual) (0.0-0.8) Nucleated RBCs # 0 K/uL Sodium 138 (136-145) mmol/L Potassium 3.6 (3.5-5.1) mmol/L Chloride 107 (98-107) mmol/L Carbon Dioxide 22.0 (21.0-32.0) mmol/L BUN 25 H (7.0-18.0) mg/dL Creatinine 1.7 H (0.6-1.0) mg/dL Est Cr Clr Drug Dosing 33.40 mL/min Estimated GFR (MDRD) 32.6 ml/min Glucose 93 (74-106) mg/dL Calcium 9.3 (8.5-10.1) mg/dL Total Bilirubin 0.3 (0.2-1.0) mg/dL AST 11 L (15-37) IU/L ALT 14 (14-63) IU/L Alkaline Phosphatase 140 H (46-116) U/L Troponin I < 0.050 (0.000-0.056) ng/mL Total Protein 7.5 (6.4-8.2) g/dL Albumin 3.6 (3.4-5.0) g/dL Globulin 3.9 (2.6-4.0) g/dL Albumin/Globulin Ratio 0.9 (0.9-1.6) Lipase 704 H (73-393) U/L Urine Color Urine Appearance Urine pH (5.0-8.0) Ur Specific [place] (1.001-1.035) Urine Protein (NEGATIVE) mg/dL Urine Glucose (UA) (NEGATIVE) mg/dL Urine Ketones (NEGATIVE) mg/dL Urine Occult Blood (NEGATIVE) Urine Nitrite (NEGATIVE) Urine Bilirubin (NEGATIVE) Urine Urobilinogen (<2.0) EU/dL Ur Leukocyte Esterase (NEGATIVE) Urine HCG, Qual (NEGATIVE) H. pylori IgG Antibody (NEG) 11/29/18 11/29/18 11/29/18 Range/Units 14:47 14:58 14:58 WBC (4.0-11.0) K/uL RBC (4.30-5.90) M/uL Hgb (12.0-16.0) g/dL Hct (36.0-46.0) % MCV (80.0-98.0) fL MCH (27.0-32.0) pg MCHC (31.0-37.0) g/dL RDW Std Deviation (28.0-62.0) fl RDW Coeff of Berny (11.0-15.0) % Plt Count (150-400) K/uL MPV (7.40-12.00) fL Neut % (Auto) (48.0-80.0) % Lymph % (Auto) (16.0-40.0) % [place] % (Auto) (0.0-15.0) % Eos % (Auto) (0.0-7.0) % Baso % (Auto) (0.0-1.5) % Neut # (Auto) (1.4-5.7) K/uL Lymph # (Auto) (0.6-2.4) K/uL [place] # (Auto) (0.0-0.8) K/uL Eos # (Auto) (0.0-0.7) K/uL Baso # (Auto) (0.0-0.1) K/uL Add Manual Diff Neutrophils % (Manual) (48.0-80.0) % Band Neutrophils % % Lymphocytes % (Manual) (16.0-40.0) % Monocytes % (Manual) (0.0-15.0) % Nucleated RBC % /100WBC Absolute Seg Neuts (1.4-5.7) Band Neutrophils # Lymphocytes # (Manual) (0.6-2.4) Monocytes # (Manual) (0.0-0.8) Nucleated RBCs # K/uL Sodium (136-145) mmol/L Potassium (3.5-5.1) mmol/L Chloride (98-107) mmol/L Carbon Dioxide (21.0-32.0) mmol/L BUN (7.0-18.0) mg/dL Creatinine (0.6-1.0) mg/dL Est Cr Clr Drug Dosing mL/min Estimated GFR (MDRD) ml/min Glucose (74-106) mg/dL Calcium (8.5-10.1) mg/dL Total Bilirubin (0.2-1.0) mg/dL AST (15-37) IU/L ALT (14-63) IU/L Alkaline Phosphatase (46-116) U/L Troponin I (0.000-0.056) ng/mL Total Protein (6.4-8.2) g/dL Albumin (3.4-5.0) g/dL Globulin (2.6-4.0) g/dL Albumin/Globulin Ratio (0.9-1.6) Lipase (73-393) U/L Urine Color STRAW Urine Appearance CLEAR Urine pH 6.0 (5.0-8.0) Ur Specific [place] <= 1.005 (1.001-1.035) Urine Protein NEGATIVE (NEGATIVE) mg/dL Urine Glucose (UA) NEGATIVE (NEGATIVE) mg/dL Urine Ketones NEGATIVE (NEGATIVE) mg/dL Urine Occult Blood NEGATIVE (NEGATIVE) Urine Nitrite NEGATIVE (NEGATIVE) Urine Bilirubin NEGATIVE (NEGATIVE) Urine Urobilinogen 0.2 (<2.0) EU/dL Ur Leukocyte Esterase NEGATIVE (NEGATIVE) Urine HCG, Qual NEGATIVE (NEGATIVE) H. pylori IgG Antibody NEGATIVE (NEG) 11/30/18 11/30/18 11/30/18 Range/Units 05:34 05:34 05:34 WBC 2.40 L (4.0-11.0) K/uL RBC 4.78 (4.30-5.90) M/uL Hgb 11.5 L (12.0-16.0) g/dL Hct 36.1 (36.0-46.0) % MCV 75.5 L (80.0-98.0) fL MCH 24.1 L (27.0-32.0) pg MCHC 31.9 (31.0-37.0) g/dL RDW Std Deviation 38.9 (28.0-62.0) fl RDW Coeff of Berny 14 (11.0-15.0) % Plt Count 225 (150-400) K/uL MPV 9.90 (7.40-12.00) fL Neut % (Auto) (48.0-80.0) % Lymph % (Auto) (16.0-40.0) % [place] % (Auto) (0.0-15.0) % Eos % (Auto) (0.0-7.0) % Baso % (Auto) (0.0-1.5) % Neut # (Auto) (1.4-5.7) K/uL Lymph # (Auto) (0.6-2.4) K/uL [place] # (Auto) (0.0-0.8) K/uL Eos # (Auto) (0.0-0.7) K/uL Baso # (Auto) (0.0-0.1) K/uL Add Manual Diff YES Neutrophils % (Manual) 58 (48.0-80.0) % Band Neutrophils % 4 % Lymphocytes % (Manual) 26 (16.0-40.0) % Monocytes % (Manual) 12 (0.0-15.0) % Nucleated RBC % 0.0 /100WBC Absolute Seg Neuts 1.4 (1.4-5.7) Band Neutrophils # 0.1 Lymphocytes # (Manual) 0.6 (0.6-2.4) Monocytes # (Manual) 0.3 (0.0-0.8) Nucleated RBCs # 0 K/uL Sodium 139 (136-145) mmol/L Potassium 3.8 (3.5-5.1) mmol/L Chloride 110 H (98-107) mmol/L Carbon Dioxide 19.4 L (21.0-32.0) mmol/L BUN 18 (7.0-18.0) mg/dL Creatinine 1.5 H (0.6-1.0) mg/dL Est Cr Clr Drug Dosing 37.85 mL/min Estimated GFR (MDRD) 37.7 ml/min Glucose 88 (74-106) mg/dL Calcium 8.5 (8.5-10.1) mg/dL Total Bilirubin 0.3 (0.2-1.0) mg/dL AST 10 L (15-37) IU/L ALT 14 (14-63) IU/L Alkaline Phosphatase 115 (46-116) U/L Troponin I (0.000-0.056) ng/mL Total Protein 6.2 L (6.4-8.2) g/dL Albumin 3.0 L (3.4-5.0) g/dL Globulin 3.2 (2.6-4.0) g/dL Albumin/Globulin Ratio 0.9 (0.9-1.6) Lipase 105 (73-393) U/L Urine Color Urine Appearance Urine pH (5.0-8.0) Ur Specific [place] (1.001-1.035) Urine Protein (NEGATIVE) mg/dL Urine Glucose (UA) (NEGATIVE) mg/dL Urine Ketones (NEGATIVE) mg/dL Urine Occult Blood (NEGATIVE) Urine Nitrite (NEGATIVE) Urine Bilirubin (NEGATIVE) Urine Urobilinogen (<2.0) EU/dL Ur Leukocyte Esterase (NEGATIVE) Urine HCG, Qual (NEGATIVE) H. pylori IgG Antibody (NEG) Med Orders - Current: Current Medications Acetaminophen (Tylenol) 650 mg PO Q4H PRN PRN Reason: Pain (Mild 1-3)/fever Amlodipine Besylate (Norvasc) 10 mg PO BEDTIME [facility] Last Admin: 11/29/18 21:03 Dose: 10 mg Calcitriol (Rocaltrol) 0.25 mcg PO QAM [facility] Docusate Sodium (Colace) 100 mg PO BID PRN PRN Reason: Constipation Gabapentin (Neurontin) 400 mg PO BEDTIME [facility] Last Admin: 11/29/18 21:02 Dose: 400 mg Gabapentin (Neurontin) 200 mg PO DAILY [facility] Heparin Sodium (Porcine) (Heparin Sodium) 5,000 units SUBCUT Q8H [facility] Last Admin: 11/30/18 05:21 Dose: 5,000 units Hydromorphone HCl (Dilaudid) 0.5 mg IVPUSH Q2H PRN PRN Reason: Pain Last Admin: 11/30/18 07:44 Dose: 0.5 mg Sodium Chloride (Normal Saline) 1,000 mls @ 100 mls/hr IV ASDIRECTED [facility] Last Admin: 11/30/18 04:03 Dose: 100 mls/hr Piperacillin Sod/Tazobactam (Sod 3.375 gm/ Sodium Chloride) 50 mls @ 100 mls/ hr IV BID [facility] Ondansetron HCl (Zofran Odt) 4 mg PO Q6H PRN PRN Reason: nausea, able to take PO Oxycodone HCl (Oxycodone) 5 mg PO Q4H PRN PRN Reason: Pain (moderate 4-6) Everolimus [Zortress (] 0.5 Mg Capsule) 6 each PO BID [facility] Sodium Bicarbonate (Sodium Bicarbonate) 650 mg PO BID [facility] Last Admin: 11/29/18 21:03 Dose: 650 mg Tacrolimus (Prograf) 6 mg PO BID [facility] Zaleplon (Sonata) 5 mg PO BEDTIME PRN PRN Reason: SLEEP Discontinued Medications Gabapentin (Neurontin) 100 mg PO BID [facility] Heparin Sodium (Porcine) (Heparin Sodium) 5,000 units SUBCUT Q8H [facility] Last Admin: 11/29/18 20:55 Dose: Not Given Hydromorphone HCl (Dilaudid) 1 mg IVPUSH ONETIME ONE Stop: 11/29/18 17:29 Last Admin: 11/29/18 17:44 Dose: 1 mg Piperacillin Sod/Tazobactam (Sod 3.375 gm/ Sodium Chloride) 50 mls @ 100 mls/ hr IV ONETIME ONE Stop: 11/29/18 17:51 Last Admin: 11/29/18 17:44 Dose: 100 mls/hr Sodium Chloride (Normal Saline) 1,000 mls @ 999 mls/hr IV STAT ONE Stop: 11/29/18 18:28 Last Admin: 11/29/18 17:48 Dose: 999 mls/hr Morphine Sulfate (Morphine) 2 mg IVPUSH Q2H PRN PRN Reason: Pain (severe 7-10) Stop: 11/30/18 18:01 Morphine Sulfate (Morphine) 2 mg IVPUSH Q2H PRN PRN Reason: Pain (severe 7-10) Stop: 11/30/18 18:01 Last Admin: 11/29/18 21:08 Dose: 2 mg Non-Formulary Medication (Everolimus [Zortress]) 3 mg PO BID [facility] Last Admin: 11/29/18 21:11 Dose: 3 mg Non-Formulary Medication (Tacrolimus [Tacrolimus]) 6 mg PO BID [facility] Last Admin: 11/29/18 21:11 Dose: 6 mg Non-Formulary Medication (Zolpidem) 10 mg PO BEDTIME [facility] Last Admin: 11/30/18 00:09 Dose: 10 mg - Exam Quality Assessment: No: Supplemental Oxygen General: Alert, Oriented, Cooperative, No Acute Distress HEENT: Pupils Equal, Pupils Reactive, EOMI. No: Mucous Membr. Moist/[place] (Dry) Neck: Supple, Trachea Midline Lungs: Clear to Auscultation, Normal Respiratory Effort Cardiovascular: Regular Rate, Regular Rhythm GI/Abdominal Exam: Normal Bowel Sounds, Soft, No Distention, Tender (Lower right quadrant with edema transplanted kidney) Extremities: Normal Inspection, Normal Range of Motion, Non-Tender Neurological: No New Focal Deficit Psy/Mental Status: Alert, Normal Affect, Normal Mood - Problem List & Annotations (1) Pancreatitis SNOMED Code(s): 96989929 Code(s): K85.90 - ACUTE PANCREATITIS WITHOUT NECROSIS OR INFECTION, UNSP Status: Resolved Priority: High Current Visit: Yes Qualifiers: Chronicity: acute Pancreatitis type: unspecified pancreatitis type Acute pancreatitis complication: unspecified Qualified Code(s): K85.90 - Acute pancreatitis without necrosis or infection, unspecified (2) Immunocompromised SNOMED Code(s): 052195750 Code(s): D84.9 - IMMUNODEFICIENCY, UNSPECIFIED Status: Chronic Priority: High Current Visit: Yes (3) Kidney transplant complication SNOMED Code(s): 70610746 Code(s): T86.10 - UNSPECIFIED COMPLICATION OF KIDNEY TRANSPLANT Status: Chronic Priority: Medium Current Visit: Yes Qualifiers: Transplant complication type: unspecified Qualified Code(s): T86.10 - Unspecified complication of kidney transplant (4) Abdominal pain SNOMED Code(s): 97261324 Code(s): R10.9 - UNSPECIFIED ABDOMINAL PAIN Status: Acute Priority: High Current Visit: Yes (5) Anxiety SNOMED Code(s): 13322951 Code(s): F41.9 - ANXIETY DISORDER, UNSPECIFIED Status: Chronic Priority: High Current Visit: Yes (6) Dehydration, mild SNOMED Code(s): 2565103823387 Code(s): E86.0 - DEHYDRATION Status: Acute Priority: High Current Visit : Yes - Problem List Review Problem List Initiated/Reviewed/Updated: Yes - My Orders Last 24 Hours: My Active Orders 11/29/18 18:00 Oxygen Therapy [RC] PRN Up ad Dayan [RC] ASDIRECTED VTE/DVT Education [RC] PER UNIT ROUTINE Vital Signs [RC] Q4H Acetaminophen [Tylenol] 650 mg PO Q4H PRN Docusate Sodium [Colace] 100 mg PO BID PRN Ondansetron [Zofran ODT] 4 mg PO Q6H PRN Sodium Chloride 0.9% [Normal Saline] 1,000 ml IV ASDIRECTED oxyCODONE 5 mg PO Q4H PRN Resuscitation Status Routine 11/29/18 21:00 Gabapentin [Neurontin] 400 mg PO BEDTIME Sodium Bicarbonate 650 mg PO BID amLODIPine [Norvasc] 10 mg PO BEDTIME 11/29/18 21:30 HYDROmorphone [Dilaudid] 0.5 mg IVPUSH Q2H PRN 11/29/18 22:00 Heparin Sodium 5,000 units SUBCUT Q8H 11/30/18 07:15 Tacrolimus [Prograf] 6 mg PO BID 11/30/18 07:19 Zaleplon [Sonata] 5 mg PO BEDTIME PRN 11/30/18 09:00 Calcitriol [Rocaltrol] 0.25 mcg PO QAM Gabapentin [Neurontin] 200 mg PO DAILY Patient's Own Medication [Ptom] 6 each PO BID Piperacillin/Tazobactam [Piperacil-Tazobact] 3.375 gm Sodium Chloride 0.9% [ Normal Saline] 50 ml IV BID - Plan Plan:: The patient is a 42-year-old lady had been admitted out of concern for pancreatitis, pyelonephritis. She has been on IV Zosyn and this will be continued renally dosed for her. The patient also be kept on IV fluids consisting of normal saline at 75 mL per hour. The patient also has been encouraged to ambulate. Patient's diet will be advanced as tolerated. Her dehydration is essentially resolved and her pancreatitis is improved significantly. The patient will be kept in hospital for at least 1 more day with regards to likely pyelonephritis. Cultures are currently pending. The patient will also be kept on heparin for DVT prophylaxis.
[2018-11-30] MEDS: Gabapentin 100 MG Cap PO SCH ×2 (09:28→20:02)
[2018-11-30] MEDS: Piperacillin/Tazobactam 3.375 GM in Sodium Chloride 0.9% 50 ML IV SCH ×2 (09:30→20:07)
[2018-11-30] MEDS: Sodium Bicarbonate 650 MG Tab PO SCH ×2 (09:34→20:02)
[2018-11-30] MEDS: Calcitriol 0.25 MCG Cap PO SCH (09:34)
[2018-11-30] MEDS: Tacrolimus 1 MG Cap PO SCH ×2 (12:30→20:02)
[2018-11-30] MEDS: EVEROLIMUS 0.5 MG PO SCH ×2 (12:31→20:35)
[2018-11-30] MEDS: amLODIPine 5 MG Tab PO SCH (20:02)
[2018-12-01] MEDS: Heparin Sodium 5,000 Units/ML Vial SUBCUT SCH ×3 (05:26→21:04)
[2018-12-01] MEDS: HYDROmorphone 1 MG/ML Syringe IVPUSH PRN ×4 (05:58→19:54)
--- NOTE | 2018-12-01 08:09 | PCM.PN ---
- General Info Date of Service: 12/01/18 Admission Dx/Problem (Free Text): Admission Diagnosis/Problem Admission Diagnosis/Problem Pancreatitis, pyelonephritis, transplanted kidney, immunocompromised Subjective Update: The patient is a 42-year-old lady who had been admitted secondary to pancreatitis which is resolved along with increasing abdominal pain. The patient also has a history of renal transplant and that she is on immunosuppressant medications. Patient still having pain in the area of her transplanted kidney. The patient has had her diet advanced. She has denied any fever or chills. No other complaints. Functional Status: Reports: Pain Controlled - Review of Systems General: Reports: No Symptoms HEENT: Reports: No Symptoms Pulmonary: Reports: No Symptoms Cardiovascular: Reports: No Symptoms Gastrointestinal: Reports: Abdominal Pain Genitourinary: Reports: No Symptoms Musculoskeletal: Reports: No Symptoms Skin: Reports: No Symptoms Neurological: Reports: No Symptoms Psychiatric: Reports: No Symptoms - Patient Data Vitals - Most Recent: Last Vital Signs Temp 37.0 C 12/01/18 05:00 Pulse 72 11/30/18 16:00 Resp 17 12/01/18 05:00 BP 112/72 12/01/18 05:00 Pulse Ox 94 L 12/01/18 05:00 Weight - Most Recent: 81.828 kg I&O - Last 24 Hours: Intake & Output 11/30/18 12/01/18 12/01/18 22:59 06:59 14:59 Intake Total 1169 1506 Output Total 1550 Balance 1169 -44 Lab Results Last 24 Hours: Laboratory Results - last 24 hr 12/01/18 12/01/18 Range/Units 05:15 05:15 WBC 3.12 L (4.0-11.0) K/uL RBC 4.57 (4.30-5.90) M/uL Hgb 10.8 L (12.0-16.0) g/dL Hct 34.7 L (36.0-46.0) % MCV 75.9 L (80.0-98.0) fL MCH 23.6 L (27.0-32.0) pg MCHC 31.1 (31.0-37.0) g/dL RDW Std Deviation 39.6 (28.0-62.0) fl RDW Coeff of Berny 14 (11.0-15.0) % Plt Count 207 (150-400) K/uL MPV 10.10 (7.40-12.00) fL Add Manual Diff YES Neutrophils % (Manual) 62 (48.0-80.0) % Band Neutrophils % 7 % Lymphocytes % (Manual) 17 (16.0-40.0) % Monocytes % (Manual) 14 (0.0-15.0) % Nucleated RBC % 0.0 /100WBC Absolute Seg Neuts 1.9 (1.4-5.7) Band Neutrophils # 0.2 Lymphocytes # (Manual) 0.5 L (0.6-2.4) Monocytes # (Manual) 0.4 (0.0-0.8) Nucleated RBCs # 0 K/uL Sodium 138 (136-145) mmol/L Potassium 3.8 (3.5-5.1) mmol/L Chloride 107 (98-107) mmol/L Carbon Dioxide 21.2 (21.0-32.0) mmol/L BUN 18 (7.0-18.0) mg/dL Creatinine 1.6 H (0.6-1.0) mg/dL Est Cr Clr Drug Dosing 35.49 mL/min Estimated GFR (MDRD) 35.0 ml/min Glucose 88 (74-106) mg/dL Calcium 8.3 L (8.5-10.1) mg/dL Cj Results Last 24 Hours: Microbiology 11/29/18 17:43 Aerobic Blood Culture - Preliminary Blood - Venous - Lab Draw NO GROWTH AFTER 1 DAY Anaerobic Blood Culture - Preliminary NO GROWTH AFTER 1 DAY 11/29/18 17:31 Aerobic Blood Culture - Preliminary Blood - Venous NO GROWTH AFTER 1 DAY Anaerobic Blood Culture - Preliminary NO GROWTH AFTER 1 DAY Med Orders - Current: Current Medications Acetaminophen (Tylenol) 650 mg PO Q4H PRN PRN Reason: Pain (Mild 1-3)/fever Amlodipine Besylate (Norvasc) 10 mg PO BEDTIME [facility] Last Admin: 11/30/18 20:02 Dose: 10 mg Calcitriol (Rocaltrol) 0.25 mcg PO QAM [facility] Last Admin: 11/30/18 09:34 Dose: 0.25 mcg Docusate Sodium (Colace) 100 mg PO BID PRN PRN Reason: Constipation Gabapentin (Neurontin) 400 mg PO BEDTIME [facility] Last Admin: 06/18/19 20:02 Dose: 400 mg Gabapentin (Neurontin) 200 mg PO DAILY [facility] Last Admin: 11/30/18 09:28 Dose: 200 mg Heparin Sodium (Porcine) (Heparin Sodium) 5,000 units SUBCUT Q8H [facility] Last Admin: 12/01/18 05:26 Dose: 5,000 units Hydromorphone HCl (Dilaudid) 0.5 mg IVPUSH Q2H PRN PRN Reason: Pain Last Admin: 12/01/18 05:58 Dose: 0.5 mg Sodium Chloride (Normal Saline) 1,000 mls @ 100 mls/hr IV ASDIRECTED [facility] Last Admin: 11/30/18 19:21 Dose: 75 mls/hr Piperacillin Sod/Tazobactam (Sod 3.375 gm/ Sodium Chloride) 50 mls @ 100 mls/ hr IV BID [facility] Last Admin: 11/30/18 20:07 Dose: 100 mls/hr Ondansetron HCl (Zofran Odt) 4 mg PO Q6H PRN PRN Reason: nausea, able to take PO Oxycodone HCl (Oxycodone) 5 mg PO Q4H PRN PRN Reason: Pain (moderate 4-6) Everolimus [Zortress (] 0.5 Mg Capsule) 6 each PO BID [facility] Last Admin: 11/30/18 20:35 Dose: 6 each Sodium Bicarbonate (Sodium Bicarbonate) 650 mg PO BID [facility] Last Admin: 11/30/18 20:02 Dose: 650 mg Tacrolimus (Prograf) 6 mg PO BID [facility] Last Admin: 11/30/18 20:02 Dose: 6 mg Zaleplon (Sonata) 5 mg PO BEDTIME PRN PRN Reason: SLEEP Discontinued Medications Gabapentin (Neurontin) 100 mg PO BID [facility] Heparin Sodium (Porcine) (Heparin Sodium) 5,000 units SUBCUT Q8H [facility] Last Admin: 11/29/18 20:55 Dose: Not Given Hydromorphone HCl (Dilaudid) 1 mg IVPUSH ONETIME ONE Stop: 11/29/18 17:29 Last Admin: 11/29/18 17:44 Dose: 1 mg Piperacillin Sod/Tazobactam (Sod 3.375 gm/ Sodium Chloride) 50 mls @ 100 mls/ hr IV ONETIME ONE Stop: 11/29/18 17:51 Last Admin: 11/29/18 17:44 Dose: 100 mls/hr Sodium Chloride (Normal Saline) 1,000 mls @ 999 mls/hr IV STAT ONE Stop: 11/29/18 18:28 Last Admin: 11/29/18 17:48 Dose: 999 mls/hr Morphine Sulfate (Morphine) 2 mg IVPUSH Q2H PRN PRN Reason: Pain (severe 7-10) Stop: 11/30/18 18:01 Morphine Sulfate (Morphine) 2 mg IVPUSH Q2H PRN PRN Reason: Pain (severe 7-10) Stop: 11/30/18 18:01 Last Admin: 11/29/18 21:08 Dose: 2 mg Non-Formulary Medication (Everolimus [Zortress]) 3 mg PO BID [facility] Last Admin: 11/29/18 21:11 Dose: 3 mg Non-Formulary Medication (Tacrolimus [Tacrolimus]) 6 mg PO BID [facility] Last Admin: 11/29/18 21:11 Dose: 6 mg Non-Formulary Medication (Zolpidem) 10 mg PO BEDTIME [facility] Last Admin: 11/30/18 00:09 Dose: 10 mg - Exam Quality Assessment: No: Supplemental Oxygen General: Alert, Oriented, Cooperative, No Acute Distress HEENT: Pupils Equal, Pupils Reactive, EOMI, Mucous Membr. Moist/[place] Neck: Supple, Trachea Midline Lungs: Clear to Auscultation, Normal Respiratory Effort Cardiovascular: Regular Rate, Regular Rhythm GI/Abdominal Exam: Normal Bowel Sounds, Soft, No Distention, Tender (Lower abdomen). No: Guarding, Rigid, Rebound Back Exam: Normal Inspection, Full Range of Motion Extremities: Normal Inspection, Normal Range of Motion, No Pedal Edema Skin: Warm, Dry, Intact Neurological: No New Focal Deficit Psy/Mental Status: Alert, Normal Affect, Normal Mood - Problem List & Annotations (1) Kidney transplant complication SNOMED Code(s): 19566709 Code(s): T86.10 - UNSPECIFIED COMPLICATION OF KIDNEY TRANSPLANT Status: Chronic Priority: Medium Current Visit: Yes Qualifiers: Transplant complication type: unspecified Qualified Code(s): T86.10 - Unspecified complication of kidney transplant (2) Pancreatitis SNOMED Code(s): 24389395 Code(s): K85.90 - ACUTE PANCREATITIS WITHOUT NECROSIS OR INFECTION, UNSP Status: Resolved Priority: High Current Visit: Yes Qualifiers: Chronicity: acute Pancreatitis type: unspecified pancreatitis type Acute pancreatitis complication: unspecified Qualified Code(s): K85.90 - Acute pancreatitis without necrosis or infection, unspecified (3) Immunocompromised SNOMED Code(s): 094543948 Code(s): D84.9 - IMMUNODEFICIENCY, UNSPECIFIED Status: Chronic Priority: High Current Visit: Yes (4) Abdominal pain SNOMED Code(s): 60938080 Code(s): R10.9 - UNSPECIFIED ABDOMINAL PAIN Status: Acute Priority: High Current Visit: Yes (5) Anxiety SNOMED Code(s): 66737828 Code(s): F41.9 - ANXIETY DISORDER, UNSPECIFIED Status: Chronic Priority: High Current Visit: Yes (6) Dehydration, mild SNOMED Code(s): 4908080145135 Code(s): E86.0 - DEHYDRATION Status: Resolved Priority: High Current Visit: Yes - Problem List Review Problem List Initiated/Reviewed/Updated: Yes - My Orders Last 24 Hours: My Active Orders 11/30/18 07:15 Tacrolimus [Prograf] 6 mg PO BID 11/30/18 07:19 Zaleplon [Sonata] 5 mg PO BEDTIME PRN 11/30/18 09:00 Calcitriol [Rocaltrol] 0.25 mcg PO QAM Gabapentin [Neurontin] 200 mg PO DAILY Patient's Own Medication [Ptom] 6 each PO BID Piperacillin/Tazobactam [Piperacil-Tazobact] 3.375 gm Sodium Chloride 0.9% [ Normal Saline] 50 ml IV BID 11/30/18 18:57 Abdomen w wo Cont [MR] Routine 11/30/18 Lunch Regular Diet [DIET] 12/01/18 Renal Transplant [US] Routine - Plan Plan:: The patient is a 42-year-old lady who is doing much better today. The patient's pancreatitis is essentially resolved. I have been maintaining correspondence with transplant team in [place] and it was recommended that the patient have an MR of her abdomen along with a ultrasound of her transplanted kidney. The patient is physically better today. Her white cell count is improved. The patient's EGFR is essentially unchanged. The patient also be kept on Zyvox for now as recommended by transplant team. Cultures are currently pending. The patient will also be kept on heparin for DVT prophylaxis. Patient should be appropriate for discharge in 1-2 days.
[2018-12-01] MEDS: Sodium Chloride 0.9% 1,000 ML IV SCH ×2 (09:22→23:46)
[2018-12-01] MEDS: Piperacillin/Tazobactam 3.375 GM in Sodium Chloride 0.9% 50 ML IV SCH ×2 (09:23→20:05)
--- NOTE | 2018-12-01 11:33 | US ---
EXAMINATION: Renal transplant ultrasound HISTORY: Renal transplant COMPARISON: CT dated 11/29/2018 TECHNIQUE: Grayscale, color Doppler, and spectral Doppler imaging obtained. FINDINGS: The right lower quadrant transplant kidney measures approximately 12.2 cm [id number] without evidence of hydronephrosis. The renal cortical echotexture is normal. No significant hydronephrosis. Renal artery appears patent with normal arterial waveforms. No perinephric fluid collection or renal mass. IMPRESSION: 1. Grossly unremarkable renal transplant ultrasound.
[2018-12-01] MEDS: Gabapentin 100 MG Cap PO SCH ×2 (13:48→20:00)
[2018-12-01] MEDS: Tacrolimus 1 MG Cap PO SCH ×2 (13:49→20:00)
[2018-12-01] MEDS: EVEROLIMUS 0.5 MG PO SCH ×2 (13:50→20:05)
[2018-12-01] MEDS: Calcitriol 0.25 MCG Cap PO SCH (13:51)
[2018-12-01] MEDS: Sodium Bicarbonate 650 MG Tab PO SCH ×2 (13:51→20:01)
--- NOTE | 2018-12-01 16:07 | MR ---
EXAMINATION: MRI abdomen with and without contrast HISTORY: Renal artery stenosis COMPARISON: None TECHNIQUE: Multiplanar and multisequence imaging obtained of the abdomen before and following the administration of 4.5 mL of Gadavist. FINDINGS: The liver is normal in signal. The spleen, adrenal glands, and pancreas appear normal. No bulky retroperitoneal lymphadenopathy. The [place] kidneys are atrophic without evidence of obstructive uropathy. Visualized large and small bowel are normal in caliber. There is a right lower quadrant transplant kidney noted. The transplant renal artery appears patent, without significant stenosis. There is mild stenosis at the anastomosis of the right renal transplant vein, however there is no evidence of an underlying venous thrombus. The transplant kidney enhances and functions normally excretion on the delayed imaging. There is a trace perirenal stranding. No evidence of obstructive uropathy. IMPRESSION: 1. There is suboptimal opacification of the right renal artery however there is no significant stenosis noted. 2. Mild transplant perirenal edema. No evidence of obstructive uropathy or venous thrombus. 3. Atrophic [place] kidneys.
[2018-12-01] MEDS: amLODIPine 5 MG Tab PO SCH (20:00)
[2018-12-02] MEDS: HYDROmorphone 1 MG/ML Syringe IVPUSH PRN ×2 (04:54→07:52)
[2018-12-02] MEDS: Heparin Sodium 5,000 Units/ML Vial SUBCUT SCH (05:02)
--- NOTE | 2018-12-02 07:55 | PCM.DCSUM1 ---
Discharge Summary - Hospital Course HPI Initial Comments: Admitted for pyelonephritis, pancreatitis, renal transplant patient Diagnosis: Stroke: No - Discharge Data Discharge Date: 12/02/18 Discharge Disposition: Home, Self-Care 01 Condition: Good - Discharge Diagnosis/Problem(s) (1) Kidney transplant complication SNOMED Code(s): 07168410 ICD Code: T86.10 - UNSPECIFIED COMPLICATION OF KIDNEY TRANSPLANT Status: Chronic Priority: Medium Current Visit: Yes Qualifiers: Transplant complication type: infection Qualified Code(s): T86.13 - Kidney transplant infection (2) Pancreatitis SNOMED Code(s): 59438408 ICD Code: K85.90 - ACUTE PANCREATITIS WITHOUT NECROSIS OR INFECTION, UNSP Status: Resolved Priority: High Current Visit: Yes Qualifiers: Chronicity: acute Pancreatitis type: unspecified pancreatitis type Acute pancreatitis complication: unspecified Qualified Code(s): K85.90 - Acute pancreatitis without necrosis or infection, unspecified (3) Immunocompromised SNOMED Code(s): 229929503 ICD Code: D84.9 - IMMUNODEFICIENCY, UNSPECIFIED Status: Chronic Priority : High Current Visit: Yes (4) Abdominal pain SNOMED Code(s): 16488581 ICD Code: R10.9 - UNSPECIFIED ABDOMINAL PAIN Status: Chronic Priority: High Current Visit: Yes (5) Anxiety SNOMED Code(s): 89449837 ICD Code: F41.9 - ANXIETY DISORDER, UNSPECIFIED Status: Chronic Priority : High Current Visit: Yes (6) Dehydration, mild SNOMED Code(s): 9455132646738 ICD Code: E86.0 - DEHYDRATION Status: Resolved Priority: High Current Visit: Yes - Patient Summary/Data Hospital Course: The patient is a 42-year-old lady who had presented initially to the emergency department on November 29, 2018 with a complaint of upper abdominal pain. Initially , the patient had an elevation of her lipase at 704 U/L. The patient had CT scan of her abdomen and pelvis which was completed on November 29, 2018 which showed perirenal edema with stranding adjacent to the right lower quadrant transplant kidney. It was thought that this might represent pyelonephritis or otherwise venous thrombosis could not be excluded. Close contact was maintained with the patient's transplant team at the [facility]. It was recommended that the patient have a renal transplant ultrasound along with MRI of the abdomen. Both these were completed. It was noticed on the MRI that there was suboptimal opacification of the right renal artery and no significant stenosis was noted. The patient also had mild transplant renal edema without evidence of obstructive uropathy or venous thrombosis. The patient did have atrophic [place] kidneys. Renal ultrasound was otherwise negative. Initially the patient upon admission was noted to have a creatinine of 1.7 and this remained stable between 1.5 and 1.7. The patient also had cultures obtained and urine culture showed normal urinary michael less than 1000 colony-forming units. The patient's vital signs had remained stable throughout hospitalization and she was febrile at one point with a maximum temperature of 38.6 Celsius. By day of discharge the patient had continued to improve remarkably. She was still having some pain located around her transplanted kidney and there was some concern with regards to the possibility of rejection. The patient has a follow-up appointment with her transplant team next week and she has been strongly encouraged to maintain this appointment. The patient also had been given a prescription for Omnicef 300 mg by mouth twice a day as well as oxycodone 15 mg by mouth every 4 hours as needed for her chronic posttransplant abdominal pain. The patient has been tolerating her diet and she is recommended to continue with the diet as tolerated. The patient also is to have activity as tolerated. Patient will follow-up with her primary care physician as well as transplant team. She has been hemodynamically stable and she is discharged from acute hospitalization with the recommendations listed above. - Patient Instructions Diet: Heart Healthy Diet, Renal Diet Activity: As Tolerated Notify Provider of: Fever, Increased Pain - Discharge Plan *PRESCRIPTION DRUG MONITORING PROGRAM REVIEWED*: No *COPY OF PRESCRIPTION DRUG MONITORING REPORT IN PATIENT ARACELY: No Prescriptions/Med Rec: Cefdinir [Omnicef] 300 mg PO BID #14 cap oxyCODONE 15 mg PO Q4H PRN #12 tab PRN Reason: Abdominal Pain Home Medications: Home Meds Everolimus [Zortress] 3 mg PO BID 05/26/18 [History] Gabapentin [Neurontin] 200 mg PO DAILY 05/26/18 [History] Gabapentin [Neurontin] 400 mg PO BEDTIME 05/26/18 [History] Sodium Bicarbonate 650 mg PO BID 05/26/18 [History] Tacrolimus 6 mg PO BID 05/26/18 [History] amLODIPine Besylate [Amlodipine Besylate] 10 mg PO BEDTIME 05/26/18 [History] Calcitriol 0.25 mcg PO QAM 08/04/18 [History] Zolpidem [Ambien] 10 mg PO BEDTIME 08/04/18 [History] Cefdinir [Omnicef] 300 mg PO BID #14 cap 12/02/18 [Rx] oxyCODONE 15 mg PO Q4H PRN #12 tab 12/02/18 [Rx] Oxygen Therapy Mode: Room Air Patient Handouts: Cefdinir capsules, Acute Pancreatitis, [id number], Pyelonephritis, Adult, [id number], Oxycodone tablets or capsules Referrals: Jerome Perkins MD [Ordering Only Provider] - 12/20/18 8:00 am - Discharge Summary/Plan Comment DC Time >30 min.: Yes - General Info Date of Service: 12/02/18 Admission Dx/Problem (Free Text: Admission Diagnosis/Problem Admission Diagnosis/Problem Pancreatitis, pyelonephritis, transplanted kidney, immunocompromised Subjective Update: The patient is a 42-year-old lady who had been admitted secondary to pancreatitis which is resolved along with increasing abdominal pain. The patient also has a history of renal transplant and that she is on immunosuppressant medications. Patient still having pain in the area of her transplanted kidney. The patient has had her diet advanced. She has denied any fever or chills. No other complaints. Functional Status: Reports: Pain Controlled - Review of Systems General: Reports: No Symptoms HEENT: Reports: No Symptoms Pulmonary: Reports: No Symptoms Cardiovascular: Reports: No Symptoms Gastrointestinal: Reports: Abdominal Pain Genitourinary: Reports: No Symptoms Musculoskeletal: Reports: No Symptoms Skin: Reports: No Symptoms Neurological: Reports: No Symptoms Psychiatric: Reports: No Symptoms - Patient Data Vitals - Most Recent: Last Vital Signs Temp 36.6 C 12/02/18 04:55 Pulse 67 12/02/18 04:55 Resp 16 12/02/18 04:55 BP 114/64 12/02/18 04:55 Pulse Ox 96 12/02/18 04:55 Weight - Most Recent: 81.828 kg I&O - Last 24 hours: Intake & Output 12/01/18 12/02/18 12/02/18 22:59 06:59 14:59 Intake Total 1243 1376 Output Total 1100 1500 Balance 143 -124 Lab Results - Last 24 hrs: Laboratory Results - last 24 hr 12/02/18 12/02/18 Range/Units 05:25 05:25 WBC 2.29 L (4.0-11.0) K/uL RBC 4.68 (4.30-5.90) M/uL Hgb 11.0 L (12.0-16.0) g/dL Hct 35.6 L (36.0-46.0) % MCV 76.1 L (80.0-98.0) fL MCH 23.5 L (27.0-32.0) pg MCHC 30.9 L (31.0-37.0) g/dL RDW Std Deviation 40.3 (28.0-62.0) fl RDW Coeff of Berny 14 (11.0-15.0) % Plt Count 198 (150-400) K/uL MPV 9.70 (7.40-12.00) fL Add Manual Diff YES Neutrophils % (Manual) 53 (48.0-80.0) % Band Neutrophils % 3 % Lymphocytes % (Manual) 25 (16.0-40.0) % Monocytes % (Manual) 17 H (0.0-15.0) % Eosinophils % (Manual) 1 (0.0-7.0) % Basophils % (Manual) 1 (0.0-1.5) % Nucleated RBC % 0.0 /100WBC Absolute Seg Neuts 1.2 L (1.4-5.7) Band Neutrophils # 0.1 Lymphocytes # (Manual) 0.6 (0.6-2.4) Monocytes # (Manual) 0.4 (0.0-0.8) Eosinophils # (Manual) 0.0 (0.0-0.7) Basophils # (Manual) 0.0 (0.0-0.1) Nucleated RBCs # 0 K/uL Sodium 139 (136-145) mmol/L Potassium 3.9 (3.5-5.1) mmol/L Chloride 109 H (98-107) mmol/L Carbon Dioxide 21.2 (21.0-32.0) mmol/L BUN 14 (7.0-18.0) mg/dL Creatinine 1.6 H (0.6-1.0) mg/dL Est Cr Clr Drug Dosing 35.49 mL/min Estimated GFR (MDRD) 35.0 ml/min Glucose 93 (74-106) mg/dL Calcium 8.3 L (8.5-10.1) mg/dL DEREJE Results - Last 24 hrs: Microbiology 11/29/18 17:43 Aerobic Blood Culture - Preliminary Blood - Venous - Lab Draw NO GROWTH AFTER 2 DAYS Anaerobic Blood Culture - Preliminary NO GROWTH AFTER 2 DAYS 11/29/18 17:31 Aerobic Blood Culture - Preliminary Blood - Venous NO GROWTH AFTER 2 DAYS Anaerobic Blood Culture - Preliminary NO GROWTH AFTER 2 DAYS 11/29/18 22:33 Urine Culture - Final Urine, Bladder MIXED MICHAEL <1000 CFU/ML Med Orders - Current: Current Medications Acetaminophen (Tylenol) 650 mg PO Q4H PRN PRN Reason: Pain (Mild 1-3)/fever Amlodipine Besylate (Norvasc) 10 mg PO BEDTIME [facility] Last Admin: 12/01/18 20:00 Dose: 10 mg Calcitriol (Rocaltrol) 0.25 mcg PO QAM [facility] Last Admin: 12/01/18 13:51 Dose: 0.25 mcg Docusate Sodium (Colace) 100 mg PO BID PRN PRN Reason: Constipation Gabapentin (Neurontin) 400 mg PO BEDTIME [facility] Last Admin: 12/01/18 20:00 Dose: 400 mg Gabapentin (Neurontin) 200 mg PO DAILY [facility] Last Admin: 12/01/18 13:48 Dose: 200 mg Heparin Sodium (Porcine) (Heparin Sodium) 5,000 units SUBCUT Q8H [facility] Last Admin: 12/02/18 05:02 Dose: 5,000 units Hydromorphone HCl (Dilaudid) 0.5 mg IVPUSH Q2H PRN PRN Reason: Pain Last Admin: 12/02/18 07:52 Dose: 0.5 mg Sodium Chloride (Normal Saline) 1,000 mls @ 100 mls/hr IV ASDIRECTED [facility] Last Admin: 12/01/18 23:46 Dose: 75 mls/hr Piperacillin Sod/Tazobactam (Sod 3.375 gm/ Sodium Chloride) 50 mls @ 100 mls/ hr IV BID [facility] Last Admin: 12/01/18 20:05 Dose: 100 mls/hr Ondansetron HCl (Zofran Odt) 4 mg PO Q6H PRN PRN Reason: nausea, able to take PO Oxycodone HCl (Oxycodone) 5 mg PO Q4H PRN PRN Reason: Pain (moderate 4-6) Everolimus [Zortress (] 0.5 Mg Capsule) 6 each PO BID [facility] Last Admin: 12/01/18 20:05 Dose: 6 each Sodium Bicarbonate (Sodium Bicarbonate) 650 mg PO BID [facility] Last Admin: 12/01/18 20:01 Dose: 650 mg Tacrolimus (Prograf) 6 mg PO BID [facility] Last Admin: 12/01/18 20:00 Dose: 6 mg Zaleplon (Sonata) 5 mg PO BEDTIME PRN PRN Reason: SLEEP Discontinued Medications Gabapentin (Neurontin) 100 mg PO BID [facility] Heparin Sodium (Porcine) (Heparin Sodium) 5,000 units SUBCUT Q8H [facility] Last Admin: 11/29/18 20:55 Dose: Not Given Hydromorphone HCl (Dilaudid) 1 mg IVPUSH ONETIME ONE Stop: 11/29/18 17:29 Last Admin: 11/29/18 17:44 Dose: 1 mg Piperacillin Sod/Tazobactam (Sod 3.375 gm/ Sodium Chloride) 50 mls @ 100 mls/ hr IV ONETIME ONE Stop: 11/29/18 17:51 Last Admin: 11/29/18 17:44 Dose: 100 mls/hr Sodium Chloride (Normal Saline) 1,000 mls @ 999 mls/hr IV STAT ONE Stop: 11/29/18 18:28 Last Admin: 11/29/18 17:48 Dose: 999 mls/hr Morphine Sulfate (Morphine) 2 mg IVPUSH Q2H PRN PRN Reason: Pain (severe 7-10) Stop: 11/30/18 18:01 Morphine Sulfate (Morphine) 2 mg IVPUSH Q2H PRN PRN Reason: Pain (severe 7-10) Stop: 11/30/18 18:01 Last Admin: 11/29/18 21:08 Dose: 2 mg Non-Formulary Medication (Everolimus [Zortress]) 3 mg PO BID [facility] Last Admin: 11/29/18 21:11 Dose: 3 mg Non-Formulary Medication (Tacrolimus [Tacrolimus]) 6 mg PO BID [facility] Last Admin: 11/29/18 21:11 Dose: 6 mg Non-Formulary Medication (Zolpidem) 10 mg PO BEDTIME [facility] Last Admin: 11/30/18 00:09 Dose: 10 mg - Exam Quality Assessment: Denies: Supplemental Oxygen General: Reports: Alert, Oriented, Cooperative, No Acute Distress HEENT: Reports: Pupils Equal, Pupils Reactive, EOMI, Mucous Membr. Moist/[place] Neck: Reports: Supple, Trachea Midline Lungs: Reports: Clear to Auscultation, Normal Respiratory Effort Cardiovascular: Reports: Regular Rate, Regular Rhythm GI/Abdominal Exam: Normal Bowel Sounds, Soft, No Distention, Tender (Around transplanted kidney). No: Guarding, Rigid, Rebound Back Exam: Reports: Normal Inspection, Full Range of Motion, Vertebral Tenderness Extremities: Normal Inspection, No Pedal Edema Skin: Reports: Warm, Dry, Intact Neurological: Reports: No New Focal Deficit Psy/Mental Status: Reports: Alert, Normal Affect, Normal Mood
[2018-12-02] MEDS: Piperacillin/Tazobactam 3.375 GM in Sodium Chloride 0.9% 50 ML IV SCH (08:31)
[2018-12-02] MEDS: Calcitriol 0.25 MCG Cap PO SCH (08:32)
[2018-12-02] MEDS: Gabapentin 100 MG Cap PO SCH (08:32)
[2018-12-02] MEDS: Sodium Bicarbonate 650 MG Tab PO SCH (08:32)
[2018-12-02] MEDS: Tacrolimus 1 MG Cap PO SCH (08:32)
[2018-12-02] MEDS: EVEROLIMUS 0.5 MG PO SCH (08:33)
[2018-12-02 09:41] VITALS: BP 113/74
== END 2018-12-02 10:28 | disposition home or self-care (01) ==
LOC: MW.ED 14:31 → MW.ICU 17:58 → UNDOADMOB 18:03 → MW.ICU 18:03
PROVIDERS: ADMIT Internal Medicine; ATTEND Internal Medicine
DX: K85.90 Acute pancreatitis without necrosis or infection, unspecified (principal); T86.13 Kidney transplant infection; E86.0 Dehydration; I10 Essential (primary) hypertension; D84.9 Immunodeficiency, unspecified; F41.9 Anxiety disorder, unspecified; Z79.899 Other long term (current) drug therapy
CPT/HCPCS: 36415; 74176; 74176-26; 74183; 74183-26; 76776; 76776-26; 80048; 80053; 81003; 81025; 82570; 83690; 83735; 84156; 84484; 85025; 86677; 87040; 87086; 87799; 93005; 96361; 96365; 96366; 96372; 96375; 96376; 99284; 99285-25; A9270-GY; G0378; J1170; J1644; J2270; J2543; J7040; J7050

== ENCOUNTER 2019-04-29 22:37 | Emergency (ER) | payer MEDICARE, BC ==
[2019-04-29] MEDS ORDERED: Sodium Chloride 0.9% 2.5 ML Syringe FLUSH PRN (23:12)
[2019-04-29] MEDS ORDERED: Sodium Chloride 0.9% 10 ML Syringe FLUSH PRN (23:12)
[2019-04-29] MEDS ORDERED: Ondansetron 4 MG/2 ML SDV IVPUSH ONE (23:20)
[2019-04-29] MEDS ORDERED: HYDROmorphone 1 MG/ML Syringe IVPUSH ONE (23:20)
[2019-04-29] MEDS ORDERED: Sodium Chloride 0.9% 1,000 ML IV ONE (23:20)
[2019-04-29] MEDS ORDERED: diphenhydrAMINE 50 MG/ML SDV IVPUSH ONE (23:28)
[2019-04-29] MEDS ORDERED: diphenhydrAMINE 50 MG/ML SDV ONE (23:28)
--- NOTE | 2019-04-29 23:28 | EDM.PDOC ---
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 The patient has also undergone gastric bypass and cholecystectomy in the past and follows on an annual basis with her transplant team, lasting them last month in March. She said her kidney was evaluated and she also saw the pain specialist there for her chronic pain issues and was cleared to come back in one year. The patient also seES a pain specialist in [place] at [facility] for her chronic incisional pain in her right lower abdomen. She says that she takes Ambien for sleep and the gabapentin for the chronic pain and also follows here locally with [facility] and Dr. Perkins. The patient says that she had a normal day today and ate normally and did all of her normal activities and was very active but no more than usual. She does drink 2 cups of coffee a day and says that she may not have hydrated as much as she should have and she tried to catch up this evening. About 12:30 PM she started feeling a twinge in some discomfort in her right upper quadrant right lower chest wall area but he was manageable and she did not take anything specifically for the pain. THis evening she was getting ready for bed and the pain seemed to worsen a bit so she took half a tablet of Ambien to go to sleep and then the pain intensified dramatically and she was crying and came here 20 minutes after the exacerbation. The patient says that the pain is up underneath her rib cage on the right and not near her kidney transplant in the right lower quadrant. She's had normal bowel movements no fevers or chills and is making normal urine output. She had no direct trauma today and no abdominal pain in the upper abdomen. She's had a slight dry cough but no congestion runny nose or phlegm production. She has no back or flank pain and no left-sided abdominal pain. The patient takes Ambien as needed for sleep and only takes gabapentin for pain management and did not have any other prescription meds to take this evening. The patient had an admission here November 28 through December 02 of this year for similar presentation of right upper quadrant pain. She was evaluated by labs and a CAT scan in the ED and there was some question of some perinephric edema around the transplant and she also had an elevated lipase. On her admission she subsequently underwent a renal ultrasound and an MRI of her abdomen which did not reveal any acute abnormalities to trigger her pain. There was some concern that she could have a pyelonephritis and she was treated with respect to that but the cultures did not vegas out. The patient was eventually discharged with follow-up at her local clinic and with her transplant team and her transplant team was involved in directing her care on that last admission. She says she's been doing well since that time and did have her follow up in [place] just last month. Earlier today the patient had blood work done which is routine and I have reviewed that and will compare those results with our results of today Review of systems: As per history of present illness and below otherwise all systems reviewed and negative. Past medical history: As per history of present illness and as reviewed below otherwise noncontributory. Surgical history: As per history of present illness and as reviewed below otherwise noncontributory. Social history: No reported history of drug or alcohol abuse. Family history: As per history of present illness and as reviewed below otherwise noncontributory. Physical exam: General: Well-developed well-nourished female who is nontoxic and seems a bit drowsy here in the ED but is answering questions appropriately and vital signs are noted by me. HEENT: Atraumatic, normocephalic, pupils reactive, negative for conjunctival pallor or scleral icterus, mucous membranes a little tachycardia throat clear, neck supple, nontender, trachea midline. Lungs: Clear to auscultation, breath sounds equal bilaterally, chest nontender. I cannot reproduce the pain with palpation of the chest wall area on the right nor are there any defects or deformities appreciated Heart: S1S2, regular, negative for clicks, rubs, or JVD. Abdomen: Soft, nondistended, on deep palpation of the right upper quadrant I cannot elicit much tenderness and there is no left-sided abdominal pain on palpation but there is diffuse tympany in the upper abdomen and in the left mid quadrant. There is some mild discomfort in the periumbilical area and a soft umbilical hernia appreciated without any swelling. The transplanted kidney is appreciated in the right lower quadrant and it does not feel boggy or congestion and there is only minimal tenderness with palpation of this area. Negative for masses or hepatosplenomegaly. Throughout my exam of the area and question of the left upper quadrant I can palpate very deeply and not elicit the pain and the patient directs me that it is up underneath her rib cage that she is feeling this. Pelvis: Stable nontender. Genitourinary: Deferred. Rectal: Deferred. Extremities: Atraumatic, negative for cords or calf pain. Neurovascular unremarkable. No pedal edema or leg asymmetry Neuro: Awake, alert, oriented. Cranial nerves II through XII unremarkable. Cerebellum unremarkable. Motor and sensory unremarkable throughout. Exam nonfocal. Diagnostics: CBC CMP amylase lipase lactic acid alcohol level UA UDS x-ray of the chest and abdomen Therapeutics: IV, IV fluids, Dilaudid Benadryl Zofran Labs from this evening were compared to those done earlier today and also those done several weeks ago in March. Her creatinine seems to hover around 1.8 and tonight it is 2.0 and her BUN is slightly elevated but was also up in March. Patient's blood pressure has normalized without intervention. I discussed all testing results with the patient and at bedside and the patient is feeling significantly improved. I have offered them CT scan of the abdomen and pelvis to evaluate this right upper quadrant and I also offered ultrasound of the kidney although that is not the area of her pain. She and the like to decline this imaging at this time and would like to monitor the symptoms at home and if they continue to evolve or change and/or she has new symptoms such as fever nausea and vomiting they will return. They are aware of my concerns and I will advise him to call their transplant team in the morning for further direction Impression: Right upper quadrant pain, history of same, etiology unclear improved Definitive disposition and diagnosis as appropriate pending reevaluation and review of above. RUQ abdomen Pain Score (Numeric/FACES): 8 - Related Data Allergies Allergy/AdvReac Type Severity Reaction Status Date / Time No Known Allergies Allergy Verified 04/29/19 22:43 Home Meds: Home Meds Everolimus [Zortress] 3 mg PO DAILY 05/26/18 [History] Gabapentin [Neurontin] 300 mg PO DAILY 05/26/18 [History] Tacrolimus 6 mg PO BID 05/26/18 [History] amLODIPine Besylate [Amlodipine Besylate] 10 mg PO BEDTIME 05/26/18 [History] Zolpidem Tartrate [Ambien] 5 mg PO BEDTIME 04/29/19 [History] Past Medical History - Past Health History Medical/Surgical History: Denies Medical/Surgical History HEENT History: Reports: Impaired Vision, Other (See Below) Other HEENT History: wears glasses/contacts Cardiovascular History: Reports: Hypertension Respiratory History: Reports: None Gastrointestinal History: Reports: None Genitourinary History: Reports: Chronic Renal Insuffiency, Renal Disease Other Genitourinary History: FSGF, kidney transplant IT SYSTEMS MANAGER History: Reports: Endometrial Ablation, Other IT SYSTEMS MANAGER History: Breast Augmentation Musculoskeletal History: Reports: None Neurological History: Reports: Migraines, Neuropathy, Peripheral Other Neuro History: restless leg syndrome Psychiatric History: Reports: Anxiety, Depression Endocrine/Metabolic History: Reports: Hyperparathyroidism, Obesity/BMI 30+ Hematologic History: Reports: Blood Transfusion(s) Immunologic History: Reports: Solid Organ Transplant, Other (See Below) Other Immunologic History: kidney transplant Oncologic (Cancer) History: Reports: None Dermatologic History: Reports: Other (See Below) Other Dermatologic History: unexplained bruising - Infectious Disease History Infectious Disease History: Reports: Chicken Pox - Past Surgical History HEENT Surgical History: Reports: None Respiratory Surgical History: Reports: None GI Surgical History: Reports: Bariatric Procedure, Cholecystectomy, Other (See Below) Other GI Surgeries/Procedures: abdominal plasty Female Surgical History: Reports: Hysterectomy, Tubal Ligation, Other (See Below) Other Female Surgeries/Procedures: uterine ablation Endocrine Surgical History: Reports: None Neurological Surgical History: Reports: None Musculoskeletal Surgical History: Reports: Ganglion Cyst Oncologic Surgical History: Reports: None Dermatological Surgical History: Reports: None Social & Family History - Family History Family Medical History: Noncontributory Cardiac: Reports: CAD Oncologic: Reports: Colon, Liver, Lung, Pancreatic, Other (See Below) Other Oncologic Family History: throat - Tobacco Use Smoking Status *Q: Never Smoker - Caffeine Use Caffeine Use: Reports: Coffee Caffeine Use Comment: occasional - Recreational Drug Use Recreational Drug Use: No - Living Situation & Occupation Living situation: Reports: Occupation: Unemployed ED ROS GENERAL - Review of Systems Review Of Systems: Comprehensive ROS is negative, except as noted in HPI. ED EXAM, GENERAL - Physical Exam Exam: See Below (See dictation) Course - Vital Signs Last Recorded V/S: Last Vital Signs Temp 36.4 C 04/29/19 22:45 Pulse 78 04/30/19 00:19 Resp 18 04/30/19 00:19 BP 130/87 04/30/19 00:19 Pulse Ox 97 04/30/19 00:19 - Orders/Labs/Meds Orders: Active Orders 24 hr Category Date Time Status Sodium Chloride 0.9% [Saline Flush] Med 04/29/19 23:12 Active 10 ml FLUSH ASDIRECTED PRN Sodium Chloride 0.9% [Saline Flush] Med 04/29/19 23:12 Active 2.5 ml FLUSH ASDIRECTED PRN Saline Lock Insert [OM.PC] Stat Oth 04/29/19 23:12 Ordered Medication Orders Sodium Chloride (Saline Flush) 10 ml FLUSH ASDIRECTED PRN PRN Reason: Keep Vein Open Sodium Chloride (Saline Flush) 2.5 ml FLUSH ASDIRECTED PRN PRN Reason: Keep Vein Open Labs: Laboratory Tests 04/29/19 04/29/19 04/29/19 Range/Units 23:15 23:15 23:20 WBC 5.47 (4.0-11.0) K/uL RBC 5.51 (4.30-5.90) M/uL Hgb 12.1 (12.0-16.0) g/dL Hct 39.6 (36.0-46.0) % MCV 71.9 L (80.0-98.0) fL MCH 22.0 L (27.0-32.0) pg MCHC 30.6 L (31.0-37.0) g/dL RDW Std Deviation 45.5 (28.0-62.0) fl RDW Coeff of Berny 18 H (11.0-15.0) % Plt Count 255 (150-400) K/uL MPV 9.70 (7.40-12.00) fL Neut % (Auto) 76.9 (48.0-80.0) % Lymph % (Auto) 13.2 L (16.0-40.0) % Villalba % (Auto) 9.1 (0.0-15.0) % Eos % (Auto) 0.4 (0.0-7.0) % Baso % (Auto) 0.4 (0.0-1.5) % Neut # (Auto) 4.2 (1.4-5.7) K/uL Lymph # (Auto) 0.7 (0.6-2.4) K/uL Villalba # (Auto) 0.5 (0.0-0.8) K/uL Eos # (Auto) 0.0 (0.0-0.7) K/uL Baso # (Auto) 0.0 (0.0-0.1) K/uL Nucleated RBC % 0.0 /100WBC Nucleated RBCs # 0 K/uL Lactate (0.20-2.00) mmol/L Sodium (136-145) mmol/L Potassium (3.5-5.1) mmol/L Chloride (98-107) mmol/L Carbon Dioxide (21.0-32.0) mmol/L BUN (7.0-18.0) mg/dL Creatinine (0.6-1.0) mg/dL Est Cr Clr Drug Dosing mL/min Estimated GFR (MDRD) ml/min Glucose (74-106) mg/dL Calcium (8.5-10.1) mg/dL Total Bilirubin (0.2-1.0) mg/dL AST (15-37) IU/L ALT (14-63) IU/L Alkaline Phosphatase (46-116) U/L Total Protein (6.4-8.2) g/dL Albumin (3.4-5.0) g/dL Globulin (2.6-4.0) g/dL Albumin/Globulin Ratio (0.9-1.6) Amylase (25-115) U/L Lipase (73-393) U/L Urine Color YELLOW Urine Appearance CLEAR Urine pH 6.5 (5.0-8.0) Ur Specific [place] 1.010 (1.001-1.035) Urine Protein NEGATIVE (NEGATIVE) mg/dL Urine Glucose (UA) NEGATIVE (NEGATIVE) mg/dL Urine Ketones NEGATIVE (NEGATIVE) mg/dL Urine Occult Blood NEGATIVE (NEGATIVE) Urine Nitrite NEGATIVE (NEGATIVE) Urine Bilirubin NEGATIVE (NEGATIVE) Urine Urobilinogen 0.2 (<2.0) EU/dL Ur Leukocyte Esterase NEGATIVE (NEGATIVE) Urine Opiates Screen NEGATIVE (NEGATIVE) Ur Oxycodone Screen NEGATIVE (NEGATIVE) Urine Methadone Screen NEGATIVE (NEGATIVE) Ur Barbiturates Screen NEGATIVE (NEGATIVE) Ur Phencyclidine Scrn NEGATIVE (NEGATIVE) Ur Amphetamine Screen NEGATIVE (NEGATIVE) U Methamphetamines Scrn NEGATIVE (NEGATIVE) U Benzodiazepines Scrn NEGATIVE (NEGATIVE) U Cocaine Metab Screen NEGATIVE (NEGATIVE) U Marijuana (THC) Screen NEGATIVE (NEGATIVE) Ethyl Alcohol mg/dL 04/29/19 04/29/19 Range/Units 23:20 23:20 WBC (4.0-11.0) K/uL RBC (4.30-5.90) M/uL Hgb (12.0-16.0) g/dL Hct (36.0-46.0) % MCV (80.0-98.0) fL MCH (27.0-32.0) pg MCHC (31.0-37.0) g/dL RDW Std Deviation (28.0-62.0) fl RDW Coeff of Berny (11.0-15.0) % Plt Count (150-400) K/uL MPV (7.40-12.00) fL Neut % (Auto) (48.0-80.0) % Lymph % (Auto) (16.0-40.0) % Villalba % (Auto) (0.0-15.0) % Eos % (Auto) (0.0-7.0) % Baso % (Auto) (0.0-1.5) % Neut # (Auto) (1.4-5.7) K/uL Lymph # (Auto) (0.6-2.4) K/uL Villalba # (Auto) (0.0-0.8) K/uL Eos # (Auto) (0.0-0.7) K/uL Baso # (Auto) (0.0-0.1) K/uL Nucleated RBC % /100WBC Nucleated RBCs # K/uL Lactate 0.6 (0.20-2.00) mmol/L Sodium 141 (136-145) mmol/L Potassium 4.4 (3.5-5.1) mmol/L Chloride 109 H (98-107) mmol/L Carbon Dioxide 23.4 (21.0-32.0) mmol/L BUN 21 H (7.0-18.0) mg/dL Creatinine 2.0 H (0.6-1.0) mg/dL Est Cr Clr Drug Dosing 28.09 mL/min Estimated GFR (MDRD) 26.9 ml/min Glucose 92 (74-106) mg/dL Calcium 8.2 L (8.5-10.1) mg/dL Total Bilirubin 0.3 (0.2-1.0) mg/dL AST 10 L (15-37) IU/L ALT 15 (14-63) IU/L Alkaline Phosphatase 112 (46-116) U/L Total Protein 6.9 (6.4-8.2) g/dL Albumin 3.3 L (3.4-5.0) g/dL Globulin 3.6 (2.6-4.0) g/dL Albumin/Globulin Ratio 0.9 (0.9-1.6) Amylase 71 (25-115) U/L Lipase 123 (73-393) U/L Urine Color Urine Appearance Urine pH (5.0-8.0) Ur Specific [place] (1.001-1.035) Urine Protein (NEGATIVE) mg/dL Urine Glucose (UA) (NEGATIVE) mg/dL Urine Ketones (NEGATIVE) mg/dL Urine Occult Blood (NEGATIVE) Urine Nitrite (NEGATIVE) Urine Bilirubin (NEGATIVE) Urine Urobilinogen (<2.0) EU/dL Ur Leukocyte Esterase (NEGATIVE) Urine Opiates Screen (NEGATIVE) Ur Oxycodone Screen (NEGATIVE) Urine Methadone Screen (NEGATIVE) Ur Barbiturates Screen (NEGATIVE) Ur Phencyclidine Scrn (NEGATIVE) Ur Amphetamine Screen (NEGATIVE) U Methamphetamines Scrn (NEGATIVE) U Benzodiazepines Scrn (NEGATIVE) U Cocaine Metab Screen (NEGATIVE) U Marijuana (THC) Screen (NEGATIVE) Ethyl Alcohol 3 mg/dL Meds: Medications Generic Name Dose Route Start Last Admin Trade Name Freq PRN Reason Stop Dose Admin Sodium Chloride 10 ml 04/29/19 23:12 Saline Flush FLUSH ASDIRECTED PRN Keep Vein Open Sodium Chloride 2.5 ml 04/29/19 23:12 Saline Flush FLUSH ASDIRECTED PRN Keep Vein Open Discontinued Medications Generic Name Dose Route Start Last Admin Trade Name Freq PRN Reason Stop Dose Admin Diphenhydramine HCl 25 mg 04/29/19 23:28 04/29/19 23:34 Benadryl IVPUSH 04/29/19 23:29 25 mg ONETIME ONE Administration Diphenhydramine HCl Confirm 04/29/19 23:28 04/29/19 23:34 Benadryl Administered 04/29/19 23:29 Not Given Dose 50 mg .ROUTE .STK-MED ONE Hydromorphone HCl 1 mg 04/29/19 23:20 04/29/19 23:34 Dilaudid IVPUSH 04/29/19 23:21 1 mg ONETIME ONE Administration Sodium Chloride 1,000 mls @ 999 mls/hr 04/29/19 23:20 04/29/19 23:33 Normal Saline IV 04/30/19 00:20 999 mls/hr STAT ONE Administration Ondansetron HCl 4 mg 04/29/19 23:20 04/29/19 23:34 Zofran IVPUSH 04/29/19 23:21 4 mg ONETIME ONE Administration Departure - Departure Time of Disposition: 00:36 Disposition: Home, Self-Care 01 Condition: Good Clinical Impression: Abdominal pain Qualifiers: Abdominal location: right upper quadrant Qualified Code(s): R10.11 - Right upper quadrant pain - Discharge Information Referrals: Jerome Perkins MD [Primary Care Provider] - Forms: ED Department Discharge Additional Instructions: The following information is given to patients seen in the emergency department who are being discharged to home. This information is to outline your options for follow-up care. We provide all patients seen in our emergency department with a follow-up referral. The need for follow-up, as well as the timing and circumstances, are variable depending upon the specifics of your emergency department visit. If you don't have a primary care physician on staff, we will provide you with a referral. We always advise you to contact your personal physician following an emergency department visit to inform them of the circumstance of the visit and for follow-up with them and/or the need for any referrals to a consulting specialist. The emergency department will also refer you to a specialist when appropriate. This referral assures that you have the opportunity for followup care with a specialist. All of these measure are taken in an effort to provide you with optimal care, which includes your followup. Under all circumstances we always encourage you to contact your private physician who remains a resource for coordinating your care. When calling for followup care, please make the office aware that this follow-up is from your recent emergency room visit. If for any reason you are refused follow-up, please contact the [facility] emergency department at and ask to speak to the emergency department charge nurse. [address] [place] [address] These continue all home medications and push hydration. Continue to monitor your symptoms and return to ER as needed and as we discussed. Please also connect with your transplant team in the morning to discuss tonight's visit and any further management that they feel you may need. Also call and schedule a follow-up appointment with your provider at [facility] for reevaluation and further care next week. - My Orders Last 24 Hours: My Active Orders 04/29/19 23:12 Sodium Chloride 0.9% [Saline Flush] 10 ml FLUSH ASDIRECTED PRN Sodium Chloride 0.9% [Saline Flush] 2.5 ml FLUSH ASDIRECTED PRN Saline Lock Insert [OM.PC] Stat - Assessment/Plan Last 24 Hours: My Active Orders 04/29/19 23:12 Sodium Chloride 0.9% [Saline Flush] 10 ml FLUSH ASDIRECTED PRN Sodium Chloride 0.9% [Saline Flush] 2.5 ml FLUSH ASDIRECTED PRN Saline Lock Insert [OM.PC] Stat
[2019-04-29 23:47] LABS: CARBON DIOXIDE,CO2 23.4 mmol/L (21.0-32.0); POTASSIUM,K 4.4 mmol/L (3.5-5.1)
[2019-04-30 00:20] VITALS: BP 130/87; PULSE 78
--- NOTE | 2019-04-30 00:25 | CR ---
INDICATION: Upper abdominal pain TECHNIQUE: Abdomen/Pelvis radiograph 1 view COMPARISON: None FINDINGS: Bowel: The bowel gas pattern in the upper abdomen is normal without evidence of bowel obstruction. Most of the lower abdomen and pelvis are excluded and cannot be evaluated. Soft tissue: No evidence of pneumoperitoneum present. No suspicious calcifications noted. Surgical clips are noted in the right upper quadrant from prior cholecystectomy. Bone: Unremarkable for age. IMPRESSIONS: 1. Unremarkable appearance of the visualized abdomen. 2. Most of the lower abdomen and pelvis are excluded and cannot be evaluated. Dictated by Andry Puga MD @ 04/30/2019 12:24:09 AM Dictated by: Andry Puga MD @ 04/30/2019 00:24:14 (Electronically Signed)
--- NOTE | 2019-04-30 00:25 | CR ---
INDICATION: Upper abdominal pain. Chest pain TECHNIQUE: Chest radiograph 2 views COMPARISON: 07/18/2017 FINDINGS: Mediastinum: The mediastinum is normal in appearance. The heart silhouette is normal in size and morphology. Lung: Small lung volumes are present with mild subsegmental bibasilar atelectasis seen. No sign of pleural effusion seen. No pneumothorax is identified. Bone and Soft tissue: Unremarkable for age. IMPRESSION: 1. Small lung volumes are present with mild subsegmental bibasilar atelectasis seen. Dictated by Andry Puga MD @ 04/30/2019 12:25:02 AM Dictated by: Andry Puga MD @ 04/30/2019 00:25:05 (Electronically Signed)
== END 2019-04-30 00:45 | disposition home or self-care (01) ==
LOC: MW.ED 22:37
DX: R10.11 Right upper quadrant pain (principal); I10 Essential (primary) hypertension; Z79.899 Other long term (current) drug therapy; Z98.51 Tubal ligation status; Z90.710 Acquired absence of both cervix and uterus; Z90.49 Acquired absence of other specified parts of digestive tract; Z48.22 Encounter for aftercare following kidney transplant
CPT/HCPCS: 36415; 71046; 74018; 80048; 80053; 80305; 81003; 82150; 83605; 83690; 85025; 85027; 96361; 96374; 96375; 99285; G0480; J1170; J1200; J2405; J7030; 99284

== ENCOUNTER 2019-08-08 13:22 | Emergency (ER) | payer MEDICARE, BC ==
[2019-08-08 14:29] LABS: CARBON DIOXIDE,CO2 25.1 mmol/L (21.0-32.0); POTASSIUM,K 4.1 mmol/L (3.5-5.1)
[2019-08-08] MEDS ORDERED: Sodium Chloride 0.9% 1,000 ML IV ONE (14:39)
[2019-08-08] MEDS ORDERED: Morphine 4 MG/ML Syringe IVPUSH ONE (14:40)
[2019-08-08] MEDS ORDERED: Ondansetron 4 MG/2 ML SDV IVPUSH ONE ×2 (14:40→16:19)
[2019-08-08] MEDS ORDERED: HYDROmorphone 1 MG/ML Syringe IVPUSH ONE ×2 (15:01→16:19)
--- NOTE | 2019-08-08 15:20 | EDM.PDOC ---
<Wyatt Iniguez - Last Filed: 08/08/19 20:22> ED HPI GENERAL MEDICAL PROBLEM - General Chief Complaint: Abdominal Pain Stated Complaint: UPPER RIGHT ABDOMIAL PAIN Time Seen by Provider: 08/08/19 20:24 - Related Data Allergies Allergy/AdvReac Type Severity Reaction Status Date / Time No Known Allergies Allergy Verified 08/08/19 13:26 Home Meds: Home Meds Everolimus [Zortress] 3.5 mg PO DAILY 05/26/18 [History] Gabapentin [Neurontin] 300 mg PO TID 05/26/18 [History] Tacrolimus 6 mg PO BID 05/26/18 [History] amLODIPine Besylate [Amlodipine Besylate] 10 mg PO BEDTIME 05/26/18 [History] Zolpidem Tartrate [Ambien] 12.5 mg PO BEDTIME 04/29/19 [History] Alum Hydrox/Mag Hydrox/Simeth [Maalox Advanced] 1 ml PO BID #355 ml 08/08/19 [Rx ] Dapsone 100 mg PO DAILY 08/08/19 [History] Lidocaine 2% [Xylocaine 2% Viscous] 15 ml MUCMEM BID #1 bottle 08/08/19 [Rx] ED ROS GENERAL - Review of Systems Review Of Systems: See Below ED EXAM, GI/ABD - Physical Exam Exam: See Below Course - Vital Signs Last Recorded V/S: Last Vital Signs Temp 97.8 F 08/08/19 20:37 Pulse 69 08/08/19 20:37 Resp 18 08/08/19 20:37 BP 156/91 H 08/08/19 20:37 Pulse Ox 96 08/08/19 20:37 - Orders/Labs/Meds Labs: Laboratory Tests 08/08/19 08/08/19 08/08/19 Range/Units 13:50 13:50 13:50 WBC 3.80 L (4.0-11.0) K/uL RBC 3.87 L (4.30-5.90) M/uL Hgb 11.1 L (12.0-16.0) g/dL Hct 36.7 (36.0-46.0) % MCV 94.8 (80.0-98.0) fL MCH 28.7 (27.0-32.0) pg MCHC 30.2 L (31.0-37.0) g/dL RDW Std Deviation 60.4 (28.0-62.0) fl RDW Coeff of Berny 17 H (11.0-15.0) % Plt Count 258 (150-400) K/uL MPV 9.80 (7.40-12.00) fL Neut % (Auto) 74.2 (48.0-80.0) % Lymph % (Auto) 13.4 L (16.0-40.0) % [place] % (Auto) 11.6 (0.0-15.0) % Eos % (Auto) 0.8 (0.0-7.0) % Baso % (Auto) 0.0 (0.0-1.5) % Neut # (Auto) 2.8 (1.4-5.7) K/uL Lymph # (Auto) 0.5 L (0.6-2.4) K/uL [place] # (Auto) 0.4 (0.0-0.8) K/uL Eos # (Auto) 0.0 (0.0-0.7) K/uL Baso # (Auto) 0.0 (0.0-0.1) K/uL Nucleated RBC % 0.0 /100WBC Nucleated RBCs # 0 K/uL Sodium 141 (136-145) mmol/L Potassium 4.1 (3.5-5.1) mmol/L Chloride 106 (98-107) mmol/L Carbon Dioxide 25.1 (21.0-32.0) mmol/L BUN 20 H (7.0-18.0) mg/dL Creatinine 1.8 H (0.6-1.0) mg/dL Est Cr Clr Drug Dosing 31.22 mL/min Estimated GFR (MDRD) 30.4 ml/min Glucose 96 (74-106) mg/dL Calcium 9.0 (8.5-10.1) mg/dL Total Bilirubin 0.8 (0.2-1.0) mg/dL AST 13 L (15-37) IU/L ALT 19 (14-63) IU/L Alkaline Phosphatase 90 (46-116) U/L Total Protein 7.1 (6.4-8.2) g/dL Albumin 3.7 (3.4-5.0) g/dL Globulin 3.4 (2.6-4.0) g/dL Albumin/Globulin Ratio 1.1 (0.9-1.6) Lipase 102 (73-393) U/L Urine Color YELLOW Urine Appearance CLEAR Urine pH 5.5 (5.0-8.0) Ur Specific Otto 1.015 (1.001-1.035) Urine Protein NEGATIVE (NEGATIVE) mg/dL Urine Glucose (UA) NEGATIVE (NEGATIVE) mg/dL Urine Ketones NEGATIVE (NEGATIVE) mg/dL Urine Occult Blood NEGATIVE (NEGATIVE) Urine Nitrite NEGATIVE (NEGATIVE) Urine Bilirubin NEGATIVE (NEGATIVE) Urine Urobilinogen 0.2 (<2.0) EU/dL Ur Leukocyte Esterase NEGATIVE (NEGATIVE) Meds: Medications Discontinued Medications Generic Name Dose Route Start Last Admin Trade Name Freq PRN Reason Stop Dose Admin Al Hydroxide/Mg Hydroxide 30 ml 08/08/19 19:43 08/08/19 20:24 Mag-Al Plus PO 08/08/19 19:44 Not Given ONETIME ONE Al Hydroxide/Mg Hydroxide 15 0 ml 08/08/19 19:53 08/08/19 19:59 ml/ Lidocaine HCl 5 ml PO 08/08/19 19:54 5 each ONETIME ONE Administration Famotidine 20 mg 08/08/19 19:43 08/08/19 20:03 Pepcid IVPUSH 08/08/19 19:44 20 mg ONETIME ONE Administration Hydromorphone HCl 1 mg 08/08/19 15:01 08/08/19 15:05 Dilaudid IVPUSH 08/08/19 15:02 1 mg ONETIME ONE Administration Hydromorphone HCl 1 mg 08/08/19 16:19 08/08/19 16:24 Dilaudid IVPUSH 08/08/19 16:20 1 mg ONETIME ONE Administration Sodium Chloride 1,000 mls @ 999 mls/hr 08/08/19 14:39 08/08/19 14:55 Normal Saline IV 08/08/19 15:39 999 mls/hr .Bolus ONE Administration Lidocaine HCl 20 ml 08/08/19 19:43 08/08/19 20:24 Xylocaine 2% Viscous PO 08/08/19 19:44 Not Given ONETIME ONE Lidocaine HCl Confirm 08/08/19 19:52 08/08/19 19:58 Xylocaine 2% Viscous Administered 02/24/20 19:53 Not Given Dose 15 ml .ROUTE .STK-MED ONE Morphine Sulfate 4 mg 08/08/19 14:40 08/08/19 15:13 Morphine IVPUSH 08/08/19 14:41 Not Given ONETIME ONE Ondansetron HCl 4 mg 08/08/19 14:40 08/08/19 14:56 Zofran IVPUSH 08/08/19 14:41 4 mg ONETIME ONE Administration Ondansetron HCl 4 mg 08/08/19 16:19 08/08/19 16:24 Zofran IVPUSH 08/08/19 16:20 4 mg ONETIME ONE Administration Departure - Departure Time of Disposition: 20:24 Disposition: Home, Self-Care 01 Clinical Impression: Abdominal pain - Discharge Information Sepsis Event Note - Focused Exam Date Exam was Performed: 08/08/19 Time Exam was Performed: :22 - Assessment/Plan Assessment:: Patient is a 43-year-old male assumed care after Dr. Begum. Patient continuing to have some abdominal pain which was mildly improved after administration of medication earlier. Patient does admit that she had a prior history of gastric bypass. Patient's last endoscopy was about 18 months ago. Patient's renal ultrasound and CT scan reviewed without any acute abnormalities. Patient's abdominal exam is unremarkable. My concern at this point is higher for gastritis versus ulcer formation. I administered a GI cocktail which significantly improved the patient's pain. Patient does not wish to be admitted and wishes to follow-up with her primary care physician tomorrow. Given the patient is tolerating p.o. has no significant lab abnormalities, I feel this is reasonable. Patient will be discharged with oral medications for her symptoms. Patient given strict return precautions. I explained to her the risks and benefits of admission versus discharge which she states she understands. 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 Patient states this episode is similar to prior episode of pancreatitis. Has been vomiting has been having nausea. no Diarrhea no fever. When the pain is severe, feels palpitations. Been urinating normally. Denied cough. Right Upper Abdomen Pain Score (Numeric/FACES): 6 Past Medical History - Past Health History Medical/Surgical History: Denies Medical/Surgical History HEENT History: Reports: Impaired Vision, Other (See Below) Other HEENT History: wears glasses/contacts Cardiovascular History: Reports: Hypertension Respiratory History: Reports: None Gastrointestinal History: Reports: None Genitourinary History: Reports: Chronic Renal Insuffiency, Renal Disease Other Genitourinary History: FSGF, kidney transplant [employer] History: Reports: Endometrial Ablation, Other [employer] History: Breast Augmentation Musculoskeletal History: Reports: None Neurological History: Reports: Migraines, Neuropathy, Peripheral Other Neuro History: restless leg syndrome Psychiatric History: Reports: Anxiety, Depression Endocrine/Metabolic History: Reports: Obesity/BMI 30+ Hematologic History: Reports: Blood Transfusion(s) Immunologic History: Reports: Solid Organ Transplant, Other (See Below) Other Immunologic History: kidney transplant Oncologic (Cancer) History: Reports: None Dermatologic History: Reports: Other (See Below) Other Dermatologic History: unexplained bruising - Infectious Disease History Infectious Disease History: Reports: Chicken Pox - Past Surgical History HEENT Surgical History: Reports: None Respiratory Surgical History: Reports: None GI Surgical History: Reports: Bariatric Procedure, Cholecystectomy, Other (See Below) Other GI Surgeries/Procedures: abdominal plasty Female Surgical History: Reports: Hysterectomy, Tubal Ligation, Other (See Below) Other Female Surgeries/Procedures: uterine ablation Endocrine Surgical History: Reports: None Neurological Surgical History: Reports: None Musculoskeletal Surgical History: Reports: Ganglion Cyst Oncologic Surgical History: Reports: None Dermatological Surgical History: Reports: None Social & Family History - Family History Family Medical History: Noncontributory Cardiac: Reports: CAD Oncologic: Reports: Colon, Liver, Lung, Pancreatic, Other (See Below) Other Oncologic Family History: throat - Tobacco Use Smoking Status *Q: Never Smoker - Caffeine Use Caffeine Use: Reports: Coffee Caffeine Use Comment: occasional - Recreational Drug Use Recreational Drug Use: No - Living Situation & Occupation Living situation: Reports: Occupation: Unemployed ED ROS GENERAL - Review of Systems Constitutional: Reports: No Symptoms HEENT: Reports: No Symptoms Respiratory: Reports: No Symptoms Cardiovascular: Reports: No Symptoms Endocrine: Reports: No Symptoms GI/Abdominal: Reports: Abdominal Pain : Reports: No Symptoms Musculoskeletal: Reports: No Symptoms Skin: Reports: No Symptoms Neurological: Reports: No Symptoms Psychiatric: Reports: No Symptoms Hematologic/Lymphatic: Reports: No Symptoms Immunologic: Reports: No Symptoms ED EXAM, GI/ABD - Physical Exam Exam Limited By: No Limitations General Appearance: Alert, WD/WN Eyes: Bilateral: EOMI Ears: Normal External Exam Nose: Normal Inspection Throat/Mouth: Normal Inspection Head: Atraumatic, Normocephalic Neck: Supple Respiratory/Chest: No Respiratory Distress, Lungs Clear, Normal Breath Sounds Cardiovascular: Normal Peripheral Pulses, Regular Rate, Rhythm, No Edema, No JVD GI/Abdominal Exam: Soft, No Distention, Tender, Other (RUQ pain) (Female) Exam: Deferred Rectal (Female) Exam: Deferred Back Exam: Normal Inspection Extremities: Normal Inspection, No Pedal Edema Neurological: Alert, Oriented, Normal Cognition Psychiatric: Normal Affect Skin Exam: Warm Lymphatic: No Adenopathy Course - Re-Assessments/Exams Free Text/Narrative Re-Assessment/Exam: 08/08/19 19:30 Cr at baseline. no leukocytosis. sono of transplanted kidney was unremarkable overall, similar to prior studies. RUQ sono also [place] for hepatobilliary pathology. Unclear etiology of her pain right now. CT A/P pending. May need admission for pain control and IV hydration once CT scan is done. Sepsis Event Note - Evaluation Sepsis Screening Result: No Definite Risk - Focused Exam Date Exam was Performed: 08/09/19 Time Exam was Performed: 20:00
--- NOTE | 2019-08-08 16:20 | CR ---
Chest: 2 views of the chest were obtained. Comparison: Prior chest x-ray of 04/30/19. Heart size is generous which appears similar to previous exam. Lungs are clear with no acute parenchymal change. Bony structures are unremarkable. Prior cholecystectomy is noted. Impression: 1. Heart size is generous which is similar to prior study. 2. Nothing acute is otherwise seen on 2 view chest x-ray. Diagnostic code #2 This report was dictated in [place] Standard Time
--- NOTE | 2019-08-08 16:28 | US ---
Renal ultrasound: Multiple real-time images of right-sided transplant kidney were obtained as well as Doppler and duplex imaging. Comparison: Prior renal transplant kidney exam of 12/01/18. Slightly prominent collecting system of the right kidney is seen which is stable from previous exam. Renal cortex is slightly echogenic. No focal abnormality is otherwise seen within the kidney. Small echogenic area noted within the upper right kidney possibly due to minimal stone measuring 3 mm. Right kidney length is 12.0 cm. Symmetric blood flow noted within the right kidney. Proximal right renal artery after its anastomosis to the iliac artery has a peak systolic velocity of 2.49 m/s. Difficult to completely exclude developing stenosis at the anastomosis. No additional vascular abnormality is seen. Impression: 1. Questionable small stone within the upper transplant kidney. 2. Cortex is slightly echogenic. 3. Slightly elevated velocity measurement within the right renal artery at its anastomosis to the iliac artery. Difficult to exclude developing anastomotic stenosis. Recommend follow-up exam in one month to see if this persists. Diagnostic code #3 This report was dictated in [place] Standard Time
--- NOTE | 2019-08-08 17:42 | US ---
Limited abdominal ultrasound: Multiple real-time images of the upper right abdomen were obtained. Atrophied lower [place] right kidney is seen. Liver shows no focal abnormality. Visualized portions of the pancreas are within normal limits. Gallbladder not seen compatible with prior cholecystectomy. No biliary duct dilatation is seen. Impression: 1. Atrophied lower [place] right kidney. 2. Prior cholecystectomy. No biliary duct dilatation is seen. 3. No additional abnormality is seen on right upper quadrant abdominal ultrasound exam. Diagnostic code #2 This report was dictated in [place] Standard Time
--- NOTE | 2019-08-08 19:21 | CT ---
CT abdomen and pelvis Technique: Multiple axial sections were obtained from above the dome of the diaphragm inferiorly through the pubic symphysis. Intravenous contrast was not utilized. Oral contrast has been given. Comparison: Prior right upper quadrant abdominal ultrasound performed earlier on the same day (5:18 PM). Partially visualized bilateral breast prosthesis are noted. Visualized lung bases show nothing acute. Noncontrast appearance of the liver shows no discrete abnormality. Spleen appears within normal limits. Atrophic kidneys are seen on both sides. Transplant kidney is noted within the right pelvis. Pancreas is within normal limits. Surgical clips are seen from prior cholecystectomy. Aorta shows no aneurysm. No retroperitoneal adenopathy is seen. No pelvic mass or adenopathy is noted. There is areas of bowel wall thickening being seen within the nonopacified loops of bowel. No bowel wall thickening is seen within the loops containing sufficient contrast. Bowel wall thickening is likely artifact. Size of proximal small bowel loops is increased within the left upper abdomen believed to be due to hypertonic effect of the contrast. Prior stomach surgery is noted. Small low density finding noted within the lower right kidney felt compatible with a cyst measuring 1.0 cm. Appendix is visualized. Appendix is normal in size. Bone window settings were reviewed which shows no acute osseous findings. Scattered lucent areas are scattered within the lumbar spine which are likely incidental. Bony structures are diffusely osteosclerotic which is most likely due to renal osteodystrophy. Unilateral spondylolytic defect is noted at L5-S1. Impression: 1. Transplant kidney within the right lower pelvis showing a small 1 cm cyst. 2. Scattered lucent lesions within the vertebral bodies throughout the spine which are felt to be incidental. Diffuse sclerosis is noted within the osseous structures which is felt compatible with renal osteodystrophy. 3. Other findings as noted above believed to be incidental. Nothing acute is definitely appreciated. Diagnostic code #2 This report was dictated in [place] Standard Time
[2019-08-08] MEDS ORDERED: Famotidine 20 MG/2 ML SDV IVPUSH ONE (19:43)
[2019-08-08] MEDS ORDERED: Aluminum Hydroxide/Magnesium Hydroxide/Simethicone Susp 30 ML Cup PO ONE (19:43)
[2019-08-08] MEDS ORDERED: Lidocaine 2% Viscous Solution 100 ML Bottle PO ONE (19:43)
[2019-08-08] MEDS ORDERED: Lidocaine 2% Viscous Solution 15 ML Cup ONE (19:52)
[2019-08-08] MEDS ORDERED: Alum Hydrox/Mag Hydrox/Simeth 15 ML, Lidocaine 2% 5 ML PO ONE ×2 (19:53)
[2019-08-08 20:38] VITALS: BP 156/91; PULSE 69
== END 2019-08-08 20:38 | disposition home or self-care (01) ==
LOC: MW.ED 13:22 → MW.MS 19:30 → UNDOADMOB 19:30 → UNDODISOB 21:20
DX: R10.11 Right upper quadrant pain (principal); I12.9 Hypertensive chronic kidney disease with stage 1 through stage 4 chronic kidney disease, or unspecified chronic kidney disease; N18.9 Chronic kidney disease, unspecified; F41.9 Anxiety disorder, unspecified; F32.9 Major depressive disorder, single episode, unspecified; E66.9 Obesity, unspecified; Z87.448 Personal history of other diseases of urinary system; Z94.0 Kidney transplant status; Z79.899 Other long term (current) drug therapy; Z68.31 Body mass index [BMI] 31.0-31.9, adult
CPT/HCPCS: 36415; 71046; 74176; 76705; 76776; 80053; 80197; 81003; 83690; 85025; 96361; 96374; 96375; 96376; 99284; A9270; J1170; J2405; J3490; J7030

== ENCOUNTER 2020-02-23 17:41 | Emergency (ER) | payer BC, MEDICARE ==
[2020-02-23] MEDS ORDERED: Sodium Chloride 0.9% 2.5 ML Syringe FLUSH PRN (17:58)
[2020-02-23] MEDS ORDERED: Sodium Chloride 0.9% 10 ML Syringe FLUSH PRN (17:58)
[2020-02-23] MEDS ORDERED: Dexamethasone 10 MG/ML SDV IVPUSH ONE (18:03)
--- NOTE | 2020-02-23 18:06 | EDM.PDOC ---
<Preston Allen - Last Filed: 02/23/20 18:50> ED HPI GENERAL MEDICAL PROBLEM - General Chief Complaint: Chest Pain Stated Complaint: CHEST PAIN Time Seen by Provider: 02/23/20 17:50 - History of Present Illness INITIAL COMMENTS - FREE TEXT/NARRATIVE: HPI the patient began to have chest pain while resting at her desk at work at 4 PM today. It was a heavy pressure with a severity of 7 out of 10 in the center of her left chest. It was not associated with diaphoresis although she did feel a bit hot. There was nausea but no shortness of breath. It did not change with exertion. Nothing is made it better or worse. It is been constant since. The patient is a non-smoker but her mother had a coronary bypass after an abnormal stress test and she only survived a few days after the bypass. There is no other significant family history of atherosclerotic disease. There is no history of thromboembolic disease in the family and the patient has no personal history of thromboembolic disease. The patient has no recent immobilization surgery cast or long trips. The patient is not on exogenous hormones and does not smoke. History of present illness: [] Review of systems: As per history of present illness and below otherwise all systems reviewed and negative. Past medical history: As per history of present illness and as reviewed below otherwise noncontributory. Surgical history: As per history of present illness and as reviewed below otherwise noncontributory. Social history: No reported history of drug or alcohol abuse. Family history: As per history of present illness and as reviewed below otherwise noncontributory. Physical exam: Constitutional - well developed, well-nourished and in no acute distress HEENT - normocephalic, no evidence of trauma - external nose and mouth normal - no mass in neck and no JVD - mucosae moist EYES - full EOM, PERRL, no icterus - no evidence of inflammation, injection, or drainage Respiratory -the patient has a reproducible pain. When I push on the left sternal border she winces and tries to move away. She says that reproduces her pain exactly. No respiratory distress, equal bilateral expansion, lungs clear to auscultation and no abnormal lung sounds Cardiovascular - Regular Rhythm with S1 and S2 appreciated and no murmur, gallop or rub. Full pulses are intact in the extremities and symmetric. GI - abdomen soft without distension or organomegaly - normal bowel sounds - no guard or rebound Musculoskeletal no gross deformity of long bones or joints - no tenderness, swelling or edema Neurologic - Alert and oriented times four - CN II-XII grossly intact - motor sensory and coordination symmetrically normal Psychiatric - appropriate mood and affect with normal thought content Hematologic - No petechiae or purpura - mucosa appropriate color and sclera not pale - normal nail bed color and refill Integument - no rash or evidence of trauma - normal turgor Diagnostics: [] Therapeutics: [] Impression: [] Plan: [] Definitive disposition and diagnosis as appropriate pending reevaluation and review of above. left chest Pain Score (Numeric/FACES): 7 - Related Data Allergies Allergy/AdvReac Type Severity Reaction Status Date / Time No Known Allergies Allergy Verified 02/23/20 17:49 Home Meds: Home Meds Everolimus [Zortress] 3.5 mg PO BID 05/26/18 [History] Gabapentin [Neurontin] 300 mg PO TID 05/26/18 [History] Tacrolimus 6 mg PO BID 05/26/18 [History] amLODIPine Besylate [Amlodipine Besylate] 10 mg PO BEDTIME 05/26/18 [History] Zolpidem Tartrate [Ambien] 12.5 mg PO BEDTIME 04/29/19 [History] Dapsone 100 mg PO DAILY 08/08/19 [History] Acetaminophen/oxyCODONE [Percocet 325-5 MG] 1 each PO Q6HR PRN #6 tab 02/23/20 [Rx] methylPREDNISolone [Medrol Dose Pack] 4 mg PO DAILY #21 tab 02/23/20 [Rx] Past Medical History - Past Health History Medical/Surgical History: Denies Medical/Surgical History HEENT History: Reports: Impaired Vision, Other (See Below) Other HEENT History: wears glasses/contacts Cardiovascular History: Reports: Hypertension Respiratory History: Reports: None Gastrointestinal History: Reports: None Genitourinary History: Reports: Chronic Renal Insuffiency, Renal Disease Other Genitourinary History: FSGF, kidney transplant 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: Reports: Endometrial Ablation, Other 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: Breast Augmentation Musculoskeletal History: Reports: None Neurological History: Reports: Migraines, Neuropathy, Peripheral Other Neuro History: restless leg syndrome Psychiatric History: Reports: Anxiety, Depression Endocrine/Metabolic History: Reports: Obesity/BMI 30+ Hematologic History: Reports: Blood Transfusion(s) Immunologic History: Reports: Solid Organ Transplant, Other (See Below) Other Immunologic History: kidney transplant Oncologic (Cancer) History: Reports: None Dermatologic History: Reports: Other (See Below) Other Dermatologic History: unexplained bruising - Infectious Disease History Infectious Disease History: Reports: Chicken Pox - Past Surgical History HEENT Surgical History: Reports: None Respiratory Surgical History: Reports: None GI Surgical History: Reports: Bariatric Procedure, Cholecystectomy, Other (See Below) Other GI Surgeries/Procedures: abdominal plasty Female Surgical History: Reports: Hysterectomy, Tubal Ligation, Other (See Below) Other Female Surgeries/Procedures: uterine ablation Endocrine Surgical History: Reports: None Neurological Surgical History: Reports: None Musculoskeletal Surgical History: Reports: Ganglion Cyst Oncologic Surgical History: Reports: None Dermatological Surgical History: Reports: None Social & Family History - Family History Family Medical History: Noncontributory Cardiac: Reports: CAD Oncologic: Reports: Colon, Liver, Lung, Pancreatic, Other (See Below) Other Oncologic Family History: throat - Tobacco Use Smoking Status *Q: Never Smoker - Caffeine Use Caffeine Use: Reports: Coffee Caffeine Use Comment: occasional - Recreational Drug Use Recreational Drug Use: No - Living Situation & Occupation Living situation: Reports: Occupation: Unemployed ED ROS GENERAL - Review of Systems Review Of Systems: Comprehensive ROS is negative, except as noted in HPI. ED EXAM, GENERAL - Physical Exam Exam: See Below Free Text/Narrative:: My physical exam is in the HPI EKG INTERPRETATION EKG Date: 02/23/20 Rhythm: NSR P-Wave: Present QRS: Other (Late transition to R wave in the precordium) ST-T: Other (inverted in V1 and V2) Comparison: No Change EKG Interpretation Comments: No acute ischemia Course - Vital Signs Text/Narrative:: Chest x-ray no acute disease compared to 08 August 2019 no change Departure - Departure Disposition: Home, Self-Care 01 Condition: Good Clinical Impression: Costochondritis, acute, Chest pain - Discharge Information Prescriptions: methylPREDNISolone [Medrol Dose Pack] 4 mg PO DAILY #21 tab Instructions: Costochondritis, [id number], Chest Wall Pain, [id number] Referrals: Heidy Reid [Primary Care Provider] - Forms: ED Department Discharge Additional Instructions: [facility] - Primary Care [address] [place] [id number] [facility] [address] [place] [id number] The following information is given to patients seen in the emergency department who are being discharged to home. This information is to outline your options for follow-up care. We provide all patients seen in our emergency department with a follow-up referral. The need for follow-up, as well as the timing and circumstances, are variable depending upon the specifics of your emergency department visit. If you don't have a primary care physician on staff, we will provide you with a referral. We always advise you to contact your personal physician following an emergency department visit to inform them of the circumstance of the visit and for follow-up with them and/or the need for any referrals to a consulting specialist. The emergency department will also refer you to a specialist when appropriate. This referral assures that you have the opportunity for follow-up care with a specialist. All of these measure are taken in an effort to provide you with optimal care, which includes your follow-up. Under all circumstances we always encourage you to contact your private physic roman who remains a resource for coordinating your care. When calling for follow- up care, please make the office aware that this follow-up is from your recent emergency room visit. If for any reason you are refused follow-up, please contact the [facility] Emergency Department at and asked to speak to the emergency department charge nurse. Sepsis Event Note (ED) - Evaluation Sepsis Screening Result: No Definite Risk <Claude Elizabeth - Last Filed: 02/23/20 20:35> ED HPI GENERAL MEDICAL PROBLEM - History of Present Illness INITIAL COMMENTS - FREE TEXT/NARRATIVE: 8:30 PM: Signout received from Dr. Allen at 7 PM. Patient seen and evaluated by me. Patient reports she has reproducible pain to palpation to her left anterior chest wall. Patient reports that the pain increases with palpation as well as inspiration. Patient reports that the medication given to her earlier by Dr. Allen is helped her pain slightly. Patient's ER work-up is been otherwise unremarkable for cardiac etiology of her chest pain. Patient's 2-hour troponin level is negative. Patient will be discharged home with instructions to follow- up with her primary care physician tomorrow as scheduled. Patient will be given a prescription for short course of Percocet to assist her with her pain. Constitutional: Patient is oriented to person, place, and time. Appears well- developed and well-nourished. No distress. HEENT: Moist mucous membranes Head: Normocephalic and atraumatic Eyes: Right eye exhibits no discharge. Left eye exhibits no discharge. No scleral icterus Neck: Normal range of motion. No tracheal deviation present. Cardiovascular: Reproducible tenderness to palpation to her left anterior chest wall. Pulmonary: Effort normal, no respiratory distress. Abdominal: No distention Musculoskeletal: Normal range of motion. Left forearm AV fistula with positive bruit/thrill Neurologic: Alert and oriented to person, place and time. Skin: [place], warm and dry. Psychiatric: Normal mood and affect. Behavior is normal. Judgment and thought content normal. Nursing note and vital signs have been reviewed Reassessment at the time of disposition demonstrates that the patient is in no acute distress. The patient has remained stable throughout the entire ED visit and is without objective evidence for acute process requiring urgent intervention or hospitalization. The patient is stable for discharge, counseling is provided as documented above, discussed symptomatic treatment and specific conditions for return. I have spoken with the patient/caregive and discussed todays findings, in addition to providing specific details for the plan of care. Questions are answered and there is agreement with the plan. Course - Vital Signs Last Recorded V/S: Last Vital Signs Temp 97.2 F 02/23/20 17:45 Pulse 65 02/23/20 19:00 Resp 18 02/23/20 18:35 BP 160/85 H 02/23/20 18:35 Pulse Ox 91 L 02/23/20 19:00 - Orders/Labs/Meds Orders: Active Orders 24 hr Category Date Time Status EKG Documentation Completion [RC] AM Care 02/23/20 17:58 Active Labs: Laboratory Tests 02/23/20 02/23/20 02/23/20 Range/Units 18:00 18:00 19:45 WBC 4.80 (4.0-11.0) K/uL RBC 4.18 L (4.30-5.90) M/uL Hgb 10.8 L (12.0-16.0) g/dL Hct 35.9 L (36.0-46.0) % MCV 85.9 (80.0-98.0) fL MCH 25.8 L (27.0-32.0) pg MCHC 30.1 L (31.0-37.0) g/dL RDW Std Deviation 51.2 (28.0-62.0) fl RDW Coeff of Berny 16 H (11.0-15.0) % Plt Count 200 (150-400) K/uL MPV 9.70 (7.40-12.00) fL Neut % (Auto) 63.8 (48.0-80.0) % Lymph % (Auto) 21.3 (16.0-40.0) % Emanuel % (Auto) 13.5 (0.0-15.0) % Eos % (Auto) 1.0 (0.0-7.0) % Baso % (Auto) 0.4 (0.0-1.5) % Neut # (Auto) 3.1 (1.4-5.7) K/uL Lymph # (Auto) 1.0 (0.6-2.4) K/uL Emanuel # (Auto) 0.7 (0.0-0.8) K/uL Eos # (Auto) 0.1 (0.0-0.7) K/uL Baso # (Auto) 0.0 (0.0-0.1) K/uL Nucleated RBC % 0.0 /100WBC Nucleated RBCs # 0 K/uL Sodium 139 (136-145) mmol/L Potassium 3.7 (3.5-5.1) mmol/L Chloride 104 (98-107) mmol/L Carbon Dioxide 25.7 (21.0-32.0) mmol/L BUN 15 (7.0-18.0) mg/dL Creatinine 1.6 H (0.6-1.0) mg/dL Est Cr Clr Drug Dosing 34.75 mL/min Estimated GFR (MDRD) 34.7 ml/min Glucose 75 (74-106) mg/dL Calcium 7.7 L (8.5-10.1) mg/dL Total Bilirubin 0.7 (0.2-1.0) mg/dL AST 16 (15-37) IU/L ALT 15 (14-63) IU/L Alkaline Phosphatase 93 (46-116) U/L Troponin I < 0.050 < 0.050 (0.000-0.056) ng/mL Total Protein 6.9 (6.4-8.2) g/dL Albumin 3.3 L (3.4-5.0) g/dL Globulin 3.6 (2.6-4.0) g/dL Albumin/Globulin Ratio 0.9 (0.9-1.6) Meds: Medications Discontinued Medications Generic Name Dose Route Start Last Admin Trade Name Freq PRN Reason Stop Dose Admin Dexamethasone 4 mg 02/23/20 18:03 02/23/20 18:33 Dexamethasone IVPUSH 02/23/20 18:04 Not Given ONETIME ONE Dexamethasone 4 mg 02/23/20 18:30 02/23/20 18:32 Dexamethasone IM 02/23/20 18:31 4 mg ONETIME ONE Administration Sodium Chloride 10 ml 02/23/20 17:58 Saline Flush FLUSH ASDIRECTED PRN Keep Vein Open Sodium Chloride 2.5 ml 02/23/20 17:58 Saline Flush FLUSH ASDIRECTED PRN Keep Vein Open Departure - Departure Time of Disposition: 20:31 Sepsis Event Note (ED) - Focused Exam Vital Signs: Vital Signs Temp Pulse Resp BP Pulse Ox 02/23/20 19:00 65 91 L 02/23/20 18:35 85 18 160/85 H 92 L 02/23/20 17:45 97.2 F 68 12 159/90 H 94 L
[2020-02-23] MEDS ORDERED: Dexamethasone 10 MG/ML SDV IM ONE (18:30)
--- NOTE | 2020-02-23 18:30 | CR ---
Chest: Frontal view of the chest was obtained. Comparison: Prior chest x-ray of 08/08/19. Heart size at the upper limits of normal. Upper mediastinum is normal. Lungs are clear with no acute parenchymal change. Bony structures are grossly intact. Impression: 1. Nothing acute is seen on frontal chest x-ray. No change from previous study is seen. Diagnostic code #1 This report was dictated in MDT
[2020-02-23 18:33] LABS: BLOOD UREA NITROGEN,BUN 15 mg/dL (7.0-18.0); CARBON DIOXIDE,CO2 25.7 mmol/L (21.0-32.0); CHLORIDE,CL 104 mmol/L (98-107); GLUCOSE RANDOM 75 mg/dL (74-106); POTASSIUM,K 3.7 mmol/L (3.5-5.1); SODIUM,NA 139 mmol/L (136-145)
[2020-02-23 20:59] VITALS: BP 148/78; PULSE 78
== END 2020-02-23 20:57 | disposition home or self-care (01) ==
LOC: MW.ED 17:41
DX: M94.0 Chondrocostal junction syndrome [Tietze] (principal); I12.9 Hypertensive chronic kidney disease with stage 1 through stage 4 chronic kidney disease, or unspecified chronic kidney disease; N18.9 Chronic kidney disease, unspecified; F41.9 Anxiety disorder, unspecified; F32.9 Major depressive disorder, single episode, unspecified; G62.9 Polyneuropathy, unspecified; E66.9 Obesity, unspecified; Z68.32 Body mass index [BMI] 32.0-32.9, adult; Z79.899 Other long term (current) drug therapy
CPT/HCPCS: 36415; 71045; 80053; 84484; 85025; 93005; 96372; 99285; J1100; 99283

== ENCOUNTER 2020-05-03 13:44 | Emergency (ER) | payer BC, MEDICARE ==
[2020-05-03 14:03] VITALS: PULSE 108
--- NOTE | 2020-05-03 14:14 | EDM.PDOC ---
ED HPI GENERAL MEDICAL PROBLEM - General Chief Complaint: Respiratory Problem Stated Complaint: COVID LIKE SYMPTOMS Time Seen by Provider: 05/03/20 14:01 Source of Information: Reports: Patient History Limitations: Reports: No Limitations - History of Present Illness INITIAL COMMENTS - FREE TEXT/NARRATIVE: Patient is a 44-year-old female with a history of renal transplant 2 years ago presents today for fever chills body aches nausea vomiting shortness of breath. 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 Patient states symptoms started on Thursday. Patient states she still taken immunosuppressive medication as prescribed and having regular urine output. abdominal Pain Score (Numeric/FACES): 5 - Related Data Allergies Allergy/AdvReac Type Severity Reaction Status Date / Time No Known Allergies Allergy Verified 05/03/20 13:57 Home Meds: Home Meds Everolimus [Zortress] 3.5 mg PO BID 05/26/18 [History] Gabapentin [Neurontin] 300 mg PO TID 05/26/18 [History] Tacrolimus 6 mg PO BID 05/26/18 [History] amLODIPine Besylate [Amlodipine Besylate] 10 mg PO BEDTIME 05/26/18 [History] Zolpidem Tartrate [Ambien] 12.5 mg PO BEDTIME 04/29/19 [History] Dapsone 50 mg PO DAILY 08/08/19 [History] Amoxicillin 875 mg PO Q8HR 5 Days #15 tablet 05/03/20 [Rx] Past Medical History - Past Health History Medical/Surgical History: Denies Medical/Surgical History HEENT History: Reports: Impaired Vision, Other (See Below) Other HEENT History: wears glasses/contacts Cardiovascular History: Reports: Hypertension Respiratory History: Reports: None Gastrointestinal History: Reports: None Genitourinary History: Reports: Chronic Renal Insuffiency, Renal Disease Other Genitourinary History: FSGF, kidney transplant 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: Endometrial Ablation, Other SEAT SCOOPER MACHINE History: Breast Augmentation Musculoskeletal History: Reports: None Neurological History: Reports: Migraines, Neuropathy, Peripheral Other Neuro History: restless leg syndrome Psychiatric History: Reports: Anxiety, Depression Endocrine/Metabolic History: Reports: Obesity/BMI 30+ Hematologic History: Reports: Blood Transfusion(s) Immunologic History: Reports: Solid Organ Transplant, Other (See Below) Other Immunologic History: kidney transplant Oncologic (Cancer) History: Reports: None Dermatologic History: Reports: Other (See Below) Other Dermatologic History: unexplained bruising - Infectious Disease History Infectious Disease History: Reports: Chicken Pox - Past Surgical History Head Surgeries/Procedures: Reports: None HEENT Surgical History: Reports: None Cardiovascular Surgical History: Reports: Other (See Below) Other Cardiovascular Surgeries/Procedures: AV graft Respiratory Surgical History: Reports: None GI Surgical History: Reports: Bariatric Procedure, Cholecystectomy, Other (See Below) Other GI Surgeries/Procedures: abdominal plasty Female Surgical History: Reports: Hysterectomy, Tubal Ligation, Other (See Below) Other Female Surgeries/Procedures: uterine ablation Endocrine Surgical History: Reports: None Neurological Surgical History: Reports: None Musculoskeletal Surgical History: Reports: Ganglion Cyst Oncologic Surgical History: Reports: None Dermatological Surgical History: Reports: None Social & Family History - Family History Family Medical History: No Pertinent Family History Cardiac: Reports: CAD Oncologic: Reports: Colon, Liver, Lung, Pancreatic, Other (See Below) Other Oncologic Family History: throat - Tobacco Use Tobacco Use Status *Q: Never Tobacco User - Caffeine Use Caffeine Use: Reports: Coffee Caffeine Use Comment: occasional - Recreational Drug Use Recreational Drug Use: No - Living Situation & Occupation Living situation: Reports: Occupation: Unemployed ED ROS GENERAL - Review of Systems Review Of Systems: Comprehensive ROS is negative, except as noted in HPI. ED EXAM, GENERAL - Physical Exam Exam: See Below Exam Limited By: No Limitations General Appearance: Alert, No Apparent Distress Eye Exam: Bilateral Eye: EOMI, PERRL Respiratory/Chest: No Respiratory Distress, Lungs Clear, Normal Breath Sounds Cardiovascular: Regular Rate, Rhythm, No Edema GI/Abdominal: Normal Bowel Sounds, Soft, Non-Tender, No Mass Extremities: Normal Range of Motion Neurological: Alert, Oriented, CN II-XII Intact, Normal Cognition, Normal Gait Skin Exam: Warm Course - Vital Signs Last Recorded V/S: Last Vital Signs Temp 98 F 05/03/20 13:52 Pulse 108 H 05/03/20 13:52 Resp 18 05/03/20 13:52 BP Pulse Ox 93 L 05/03/20 13:52 - Orders/Labs/Meds Orders: Active Orders 24 hr Category Date Time Status CORONAVIRUS COVID-19 PCR PHL Stat Lab 05/03/20 15:46 Received UA W/DEREJE RFLX IF INDICATED [URIN] Stat Lab 05/03/20 14:15 Ordered Labs: Laboratory Tests 05/03/20 05/03/20 05/03/20 Range/Units 14:28 14:28 15:46 WBC 4.12 (4.0-11.0) K/uL RBC 4.57 (4.30-5.90) M/uL Hgb 11.4 L (12.0-16.0) g/dL Hct 38.4 (36.0-46.0) % MCV 84.0 (80.0-98.0) fL MCH 24.9 L (27.0-32.0) pg MCHC 29.7 L (31.0-37.0) g/dL RDW Std Deviation 49.5 (28.0-62.0) fl RDW Coeff of Berny 16 H (11.0-15.0) % Plt Count 128 L (150-400) K/uL MPV 9.80 (7.40-12.00) fL Neut % (Auto) 76.9 (48.0-80.0) % Lymph % (Auto) 11.7 L (16.0-40.0) % Leon % (Auto) 11.2 (0.0-15.0) % Eos % (Auto) 0.0 (0.0-7.0) % Baso % (Auto) 0.2 (0.0-1.5) % Neut # (Auto) 3.2 (1.4-5.7) K/uL Lymph # (Auto) 0.5 L (0.6-2.4) K/uL Leon # (Auto) 0.5 (0.0-0.8) K/uL Eos # (Auto) 0.0 (0.0-0.7) K/uL Baso # (Auto) 0.0 (0.0-0.1) K/uL Nucleated RBC % 0.0 /100WBC Nucleated RBCs # 0 K/uL Sodium 136 (136-145) mmol/L Potassium 3.6 (3.5-5.1) mmol/L Chloride 103 (98-107) mmol/L Carbon Dioxide 24.8 (21.0-32.0) mmol/L BUN 12 (7.0-18.0) mg/dL Creatinine 1.9 H (0.6-1.0) mg/dL Est Cr Clr Drug Dosing 29.26 mL/min Estimated GFR (MDRD) 28.5 ml/min Glucose 109 H (74-106) mg/dL Calcium 8.3 L (8.5-10.1) mg/dL Total Bilirubin 0.3 (0.2-1.0) mg/dL AST 31 (15-37) IU/L ALT 41 (14-63) IU/L Alkaline Phosphatase 138 H (46-116) U/L Total Protein 6.8 (6.4-8.2) g/dL Albumin 2.8 L (3.4-5.0) g/dL Globulin 4.0 (2.6-4.0) g/dL Albumin/Globulin Ratio 0.7 L (0.9-1.6) SARS CoV-2 RNA Rapid FARZAD NEGATIVE (NEGATIVE) Meds: Medications Discontinued Medications Generic Name Dose Route Start Last Admin Trade Name Freq PRN Reason Stop Dose Admin Sodium Chloride 1,000 mls @ 1,000 mls/hr 05/03/20 17:45 Normal Saline IV ASDIRECTED ARABELLA - Re-Assessments/Exams Free Text/Narrative Re-Assessment/Exam: 05/03/20 17:58 : Spoke to the [facility]'s circuit court clerk concrete mixer operator with the patient and their as patient is negative Covid test but has some hypoxia and bilateral infiltrates on x-ray. Patient does not want to be transferred therefore and is possibly considering AMA. We can do for patient is to give her antibiotics and have her follow-up with her primary doctor if you choose AMA. 05/03/20 18:16 Dr. Thrasher from [facility] renal department was made aware the patient AMA and we can hope that they can call them even convince patient to be seen at their facility. I did attempt to call patient and I sent her home with amoxicillin for possible pneumonia patient understood the risks of eloping and signing out. 05/03/20 18:17 Oxygen level was 90% while resting but when moving around it dropped down to 88%. Departure - Departure Time of Disposition: 18:17 Disposition: Against Medical Advice 07 Condition: Good Clinical Impression: Hypoxia - Discharge Information *PRESCRIPTION DRUG MONITORING PROGRAM REVIEWED*: Not Applicable *COPY OF PRESCRIPTION DRUG MONITORING REPORT IN PATIENT ARACELY: Not Applicable Prescriptions: Amoxicillin 875 mg PO Q8HR 5 Days #15 tablet Referrals: Jerome Perkins MD [Primary Care Provider] - Forms: ED Department Discharge Sepsis Event Note (ED) - Evaluation Sepsis Screening Result: No Definite Risk - Focused Exam Vital Signs: Vital Signs Temp Pulse Resp Pulse Ox 05/03/20 13:52 98 F 108 H 18 93 L - My Orders Last 24 Hours: My Active Orders 05/03/20 14:15 UA W/DEREJE RFLX IF INDICATED [URIN] Stat 05/03/20 15:46 CORONAVIRUS COVID-19 PCR PHL Stat - Assessment/Plan Last 24 Hours: My Active Orders 05/03/20 14:15 UA W/DEREJE RFLX IF INDICATED [URIN] Stat 05/03/20 15:46 CORONAVIRUS COVID-19 PCR PHL Stat Plan: Patient is a 44-year-old female presents today for nausea vomiting fever chills and body aches. Patient also during transplant patient who is followed with [facility] will obtain labs UA Covid swab and reassess.
[2020-05-03 14:55] LABS: CARBON DIOXIDE,CO2 24.8 mmol/L (21.0-32.0); POTASSIUM,K 3.6 mmol/L (3.5-5.1)
--- NOTE | 2020-05-03 14:58 | CR ---
Indication: Fever chills Comparison: Single view chest February 23, 2020 Technique: Single AP view chest Findings: There is hyperinflation and chronic interstitial change. There is patchy airspace opacities seen in the bilateral hemithoraces new from comparison likely representing developing infiltrates. The cardiomediastinal silhouette is within normal limits. The bony thorax is grossly intact. Impression: There are developing interstitial and airspace opacities of the bilateral hemithoraces likely representing multifocal infiltrates. Dictated by Keo Payne MD @ May 03 2020 2:56PM Signed by Dr. Keo Payne @ May 03 2020 2:57PM
[2020-05-03] MEDS ORDERED: Sodium Chloride 0.9% 1,000 ML IV SCH (17:45)
== END 2020-05-03 18:00 | disposition left against medical advice (07) ==
LOC: MW.ED 13:44
DX: R09.02 Hypoxemia (principal); I12.9 Hypertensive chronic kidney disease with stage 1 through stage 4 chronic kidney disease, or unspecified chronic kidney disease; N18.9 Chronic kidney disease, unspecified; E66.9 Obesity, unspecified; G62.9 Polyneuropathy, unspecified; Z68.31 Body mass index [BMI] 31.0-31.9, adult; Z79.899 Other long term (current) drug therapy; Z20.828 Contact with and (suspected) exposure to other viral communicable diseases
CPT/HCPCS: 36415; 71045; 80053; 85025; 99285; U0002; 99283